=== PATIENT | female | born 1970 | race Caucasian/White ===

== ENCOUNTER 2016-08-14 20:11 | Emergency (ER) | payer BC ==
--- NOTE | 2016-08-14 20:21 | ED.PDOC ---
History of Present Illness - General Chief Complaint: Respiratory Problem Stated Complaint: cough, congestion, drainage Time Seen by Provider: 08/14/16 20:20 Source: patient Exam Limitations: no limitations - History of Present Illness Comments: Joanie Gupta 46 y/o female stated she had productive cough and nasal congestion the last 4 days with thick yellow phlegm and also had episode of nausea vomit at the start but stated no longer throwing up.She is dm2 compliant with medications. Timing/Duration: other - 4 days ago Cough Quality/Degree: productive cough Possible Cause: unknown cause Improving Factors: nothing Worsening Factors: nothing Associated Symptoms: wheezing - in am Allergies/Adverse Reactions: Allergies Codeine Allergy (Verified 06/18/13 08:53) Insulin Allergy (Verified 08/14/16 20:28) Iodine Allergy (Verified 06/18/13 08:53) Morphine Allergy (Verified 06/18/13 08:54) Penicillins Allergy (Verified 06/18/13 08:52) Sulfa Drugs Allergy (Verified 06/18/13 08:53) Home Medications: Ambulatory Orders Lisinopril/Hctz 20-25 mg [Zestoretic 20-25 mg] 1 ea PO DAILY #30 tab 06/19/13 Dextromethorphan-Guaifenesin [Mucinex Dm Maximum Streng 60-1200 mg] 1 tab PO BID #30 tab 08/14/16 Doxycycline Hyclate 100 mg PO BID #14 tab 08/14/16 Dulaglutide [Trulicity] 1.5 mg SC WKLY 08/14/16 Empagliflozin [Jardiance] 10 mg PO DAILY 08/14/16 Gabapentin 600 mg PO DAILY 08/14/16 Gabapentin 900 mg PO BEDTIME 08/14/16 Multiple Vitamins W/ Minerals [Thrive For Life Womens] 1 tab PO DAILY 08/14/16 Tramadol HCl [Ultram] 150 mg PO BEDTIME 08/14/16 diphenhydrAMINE HCL [Benadryl] 25 mg PO BEDTIME #60 cap 08/14/16 Review of Systems - Review of Systems Constitutional: States: no symptoms reported EENTM: States: nose congestion Respiratory: States: see HPI Cardiology: States: no symptoms reported Gastrointestinal/Abdominal: States: no symptoms reported Genitourinary: States: no symptoms reported Musculoskeletal: States: no symptoms reported Skin: States: no symptoms reported Neurological: States: no symptoms reported Endocrine: States: no symptoms reported Hematologic/Lymphatic: States: no symptoms reported Past Medical History (General) - Patient Medical History Hx Seizures: No Hx Stroke: No Hx Asthma: No Hx of COPD: No Hx Cardiac Disorders: Yes Hx Congestive Heart Failure: No Hx Pacemaker: No Hx Hypertension: Yes Hx Diabetes: Yes Hx Gastroesophageal Reflux: Yes Hx Cancer: No Hx Hepatitis C: No Hx MRSA: No Surgical History: cholecystectomy, other - left foot,shoulder - Vaccination History Hx Tetanus, Diphtheria Vaccination: No Hx Influenza Vaccination: No Hx Pneumococcal Vaccination: No - Social History Hx Tobacco Use: No Hx Alcohol Use: No Hx Substance Use: No Hx Substance Use Treatment: No Hx Depression: Yes Hx Physical Abuse: No Hx Emotional Abuse: No Hx Suspected Abuse: No - Female History Patient : No - test negative Family Medical History - Family History Mother Family History: No Known Physical Exam - Physical Exam General Appearance: Alert, No apparent distress Eye Exam: bilateral normal ENT Exam: normal ENT inspection, hearing grossly normal, TMs normal, pharynx normal, nasal congestion Neck: non-tender, full range of motion, supple, normal inspection Respiratory: chest non-tender, lungs clear, normal breath sounds, no respiratory distress Cardiovascular/Chest: normal peripheral pulses, regular rate, rhythm, no edema, no gallop, no murmur Gastrointestinal/Abdominal: normal bowel sounds, non tender, soft, no organomegaly Extremity: normal range of motion, non-tender, normal inspection Neurologic: no motor/sensory deficits, alert, normal mood/affect, oriented x 3 Skin Exam: normal color, warm/dry Lymphatic: no adenopathy Progress - EKG/XRAY/CT XRAY: chest - no acute abnormality/radiologist Departure - Departure Clinical Impression: Upper respiratory infection Qualifiers: URI type: unspecified URI Qualified Code(s): J06.9 - Acute upper respiratory infection, unspecified Time of Disposition: 20:54 Disposition: Discharge to Home or Self Care Condition: Good Departure Forms: ED Discharge - Pt. Copy, Patient Portal Self Enrollment Referrals: Estuardo Baptiste MD [Primary Care Provider] - 1-2 Weeks Prescriptions: Dextromethorphan-Guaifenesin [Mucinex Dm Maximum Streng 60-1200 mg] 1 tab PO BID #30 tab diphenhydrAMINE HCL [Benadryl] 25 mg PO BEDTIME #60 cap Doxycycline Hyclate 100 mg PO BID #14 tab Home Medications: Ambulatory Orders Lisinopril/Hctz 20-25 mg [Zestoretic 20-25 mg] 1 ea PO DAILY #30 tab 06/19/13 Dextromethorphan-Guaifenesin [Mucinex Dm Maximum Streng 60-1200 mg] 1 tab PO BID #30 tab 08/14/16 Doxycycline Hyclate 100 mg PO BID #14 tab 08/14/16 Dulaglutide [Trulicity] 1.5 mg SC WKLY 08/14/16 Empagliflozin [Jardiance] 10 mg PO DAILY 08/14/16 Gabapentin 600 mg PO DAILY 08/14/16 Gabapentin 900 mg PO BEDTIME 08/14/16 Multiple Vitamins W/ Minerals [Thrive For Life Womens] 1 tab PO DAILY 08/14/16 Tramadol HCl [Ultram] 150 mg PO BEDTIME 08/14/16 diphenhydrAMINE HCL [Benadryl] 25 mg PO BEDTIME #60 cap 08/14/16 Additional Instructions: Follow up with primary md 08/18/2016 as needed patient to call for appointment
--- NOTE | 2016-08-14 20:39 | RAD ---
PROCEDURE: Chest,2 Views CLINICAL HISTORY: cough INDICATION: Same as above COMPARISON: 06/18/2013 TECHNIQUE: PA and and lateral chest radiographs were obtained. FINDINGS: Benign elevation of the right hemidiaphragm is noted There are no discrete airspace infiltrates, pneumothoraces or pleural effusions. The pulmonary vascularity is normal The cardiomediastinal silhouette is unremarkable for patient's age and sex. IMPRESSION: There is no acute pleural-parenchymal process seen in the imaged lung mora. Place of interpretation: T[facility]iology. Electronically signed by: Azeem Jeronimo MD 08/14/2016 8:39 PM CDT Workstation: [id number]
[2016-08-14] MEDS ORDERED: DOXYCYCLINE TAB (ER DISPENSE) 100 MG CAP PO ONE (20:55)
[2016-08-14] MEDS ORDERED: BENZONATATE PERLES 100 MG CAP PO ONE (20:58)
[2016-08-14] MEDS ORDERED: BENZONATATE PERLES 100 MG CAP ONE (21:59)
[2016-08-14 22:39] VITALS: BP 154/84; TEMP 98.4; O2SAT 96
== END 2016-08-14 21:55 | disposition home or self-care (01) ==
LOC: ER 20:11
DX: J06.9 Acute upper respiratory infection, unspecified (principal); I10 Essential (primary) hypertension; E11.9 Type 2 diabetes mellitus without complications; K21.9 Gastro-esophageal reflux disease without esophagitis; Z79.899 Other long term (current) drug therapy; Z88.6 Allergy status to analgesic agent; Z88.0 Allergy status to penicillin; Z88.2 Allergy status to sulfonamides; Z88.8 Allergy status to other drugs, medicaments and biological substances

== ENCOUNTER 2017-01-10 21:58 | Emergency (ER) | payer BC ==
[2017-01-10] MEDS ORDERED: ASPIRIN (CHEWABLE) 81 MG TAB PO ONE (22:04)
[2017-01-10] MEDS ORDERED: SODIUM CHLORIDE 0.9% 1000ML 1,000 ML IVS ONE ×2 (22:04→22:57)
--- NOTE | 2017-01-10 22:33 | ED.PDOC ---
History of Present Illness - General Chief Complaint: Chest Pain/SD Stated Complaint: chest pain Time Seen by Provider: 01/10/17 22:02 Source: patient, RN notes reviewed, Vital Signs reviewed Additional Information: Pt reports onset of intermittent left upper chest sharp, burn, with squeeze type pain at around 7:30 pm on JAN 06. Pt reports waking up from a 2 hour nap around 7 pm and then pain began when standing in kitchen around 7:30 pm, not exerting herself. She says nothing makes the pain better or worse. She does report a similar episode about 3 to 4 years ago and a work-up with an [facility] in June 2015 which was normal. - History of Present Illness Timing/Duration: 1-3 hours - onset around 7:30 pm on JAN 06. Severity/Quality: moderate - and intermittent - , burning, sharp, tightness Location: other - left upper chest Chest Pain Radiation: jaw, arms - left arm and shoulder per report Activities at Onset: none Prior Chest Pain/Cardiac Workup: echocardiography, thallium scan Improving Factors: nothing Worsening Factors: nothing Aspirin Treatment Today: no aspirin today Associated Symptoms: denies symptoms - to include diaphoresis Allergies/Adverse Reactions: Allergies Codeine Allergy (Verified 01/10/17 22:47) Insulin Allergy (Verified 01/10/17 22:47) Iodine Allergy (Verified 01/10/17 22:47) Morphine Allergy (Verified 01/10/17 22:47) Penicillins Allergy (Verified 01/10/17 22:47) Sulfa Drugs Allergy (Verified 01/10/17 22:47) Home Medications: Ambulatory Orders Lisinopril/Hctz 20-25 mg [Zestoretic 20-25 mg] 1 ea PO DAILY #30 tab 06/19/13 Dextromethorphan-Guaifenesin [Mucinex Dm Maximum Streng 60-1200 mg] 1 tab PO BID #30 tab 08/14/16 Doxycycline Hyclate 100 mg PO BID #14 tab 08/14/16 Dulaglutide [Trulicity] 1.5 mg SC WKLY 08/14/16 Empagliflozin [Jardiance] 10 mg PO DAILY 08/14/16 Gabapentin 600 mg PO DAILY 08/14/16 Gabapentin 900 mg PO BEDTIME 08/14/16 Multiple Vitamins W/ Minerals [Thrive For Life Womens] 1 tab PO DAILY 08/14/16 Tramadol HCl [Ultram] 150 mg PO BEDTIME 08/14/16 diphenhydrAMINE HCL [Benadryl] 25 mg PO BEDTIME #60 cap 08/14/16 Review of Systems - Review of Systems Constitutional: States: no symptoms reported, see HPI EENTM: States: no symptoms reported Respiratory: States: no symptoms reported Cardiology: States: see HPI, chest pain Gastrointestinal/Abdominal: States: no symptoms reported Genitourinary: States: no symptoms reported Musculoskeletal: States: no symptoms reported Skin: States: no symptoms reported Neurological: States: anxiety Endocrine: States: no symptoms reported Hematologic/Lymphatic: States: no symptoms reported Past Medical History (General) - Patient Medical History Hx Seizures: No Hx Stroke: No Hx Asthma: No Hx of COPD: No Hx Cardiac Disorders: Yes - cardiac work-up for similar presentation 3 to 4 years ago and in June Hx Congestive Heart Failure: No Hx Pacemaker: No Hx Hypertension: Yes Hx Diabetes: Yes - Uncontrolled (last A1C >11%) Hx Gastroesophageal Reflux: Yes Hx Cancer: No Hx Hepatitis C: No Hx MRSA: No - Vaccination History Hx Tetanus, Diphtheria Vaccination: No Hx Influenza Vaccination: No Hx Pneumococcal Vaccination: No - Social History Hx Tobacco Use: No Hx Chewing Tobacco Use: No Hx Alcohol Use: No Hx Substance Use: No Hx Substance Use Treatment: No Hx Depression: Yes Hx Physical Abuse: No Hx Emotional Abuse: No Hx Suspected Abuse: No - Female History Patient : No - test negative Family Medical History - Family History Mother Family History: No Known Physical Exam - Physical Exam General Appearance: Anxious - at times, No apparent distress, Obese Eyes, Ears, Nose, Throat Exam: normal ENT inspection, pharynx normal Neck: non-tender, full range of motion, supple Respiratory: normal breath sounds, no respiratory distress, no accessory muscle use Cardiovascular/Chest: normal peripheral pulses, regular rate, rhythm, no murmur Gastrointestinal/Abdominal: non tender, soft Extremity: normal range of motion, non-tender, normal inspection 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 Comes intermittently. Nonexertional. Since she is a female diabetic she may be presenting with atypical ACS. However, her serial troponin and EKG assessments were normal without evidence of SD at this time. Also, no hypoxia, no tachycardia, and patient with negative d-dimer making PE unlikely as well. 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 Patient stable for discharge home. Unclear etiololgy at this time for symptoms. May be - GERD vs Anxiety vs possible costochondritis. Patient to return to ED if symptoms worsen. Also, Pt is to f/u with PCM for reassessment if symptoms persist. - Results/Orders Results/Orders: 01/10/17 22:15 EKG STAT 01/10/17 23:55 EKG .ONCE Laboratory Results - last 24 hr 01/10/17 01/10/17 01/10/17 22:25 22:25 22:25 WBC 10.4 RBC 4.92 Hgb 15.1 Hct 43.6 MCV 88.6 MCH 30.6 MCHC 34.5 RDW 12.3 Plt Count 356 MPV 8.7 Absolute Neuts (auto) 5.30 Absolute Lymphs (auto) 3.40 Absolute Monos (auto) 0.60 Absolute Eos (auto) 1.10 H Absolute Basos (auto) 0.00 Neutrophils % 50.8 Lymphocytes % 32.5 Monocytes % 6.0 Eosinophils % 10.3 H Basophils % 0.4 D-Dimer, Quantitative < 230 Sodium 133 L Potassium 4.0 Chloride 95 L Carbon Dioxide 24 Anion Gap 18.0 BUN 23 H Creatinine 0.66 BUN/Creatinine Ratio 34.8 H POC Glucose Random Glucose 480 H* Serum Osmolality 291.3 Calcium 10.2 Total Bilirubin 0.5 AST 21 ALT 22 Alkaline Phosphatase 79 Creatine Kinase 304 H* CK-MB (CK-2) 27.4 H* CK-MB (CK-2) % 9.01 H Troponin I < 0.02 Serum Total Protein 7.8 Albumin 4.4 Globulin 3.4 Albumin/Globulin Ratio 1.3 01/10/17 01/11/17 23:55 00:08 WBC RBC Hgb Hct MCV MCH MCHC RDW Plt Count MPV Absolute Neuts (auto) Absolute Lymphs (auto) Absolute Monos (auto) Absolute Eos (auto) Absolute Basos (auto) Neutrophils % Lymphocytes % Monocytes % Eosinophils % Basophils % D-Dimer, Quantitative Sodium Potassium Chloride Carbon Dioxide Anion Gap BUN Creatinine BUN/Creatinine Ratio POC Glucose 353 H Random Glucose Serum Osmolality Calcium Total Bilirubin AST ALT Alkaline Phosphatase Creatine Kinase 264 H* CK-MB (CK-2) 23.2 H* CK-MB (CK-2) % 8.79 H Troponin I < 0.02 Serum Total Protein Albumin Globulin Albumin/Globulin Ratio 01/10/17 01/10/17 01/10/17 22:48 23:00 23:33 Temperature 98.1 F 98.1 F Pulse Rate 88 85 90 Pulse Rate [ 87 85 87 left] Respiratory 18 18 18 Rate Blood Pressure 153/97 147/86 150/90 [left] O2 Sat by Pulse 96 95 95 Oximetry 01/11/17 00:14 Temperature Pulse Rate 90 Pulse Rate [ 91 H left] Respiratory 18 Rate Blood Pressure 150/91 [left] O2 Sat by Pulse 95 Oximetry - EKG/XRAY/CT EKG: Sinus - 89 bpm @ 2201 (JAN 06), no ST T wave changes XRAY: chest - 2 view. Persistent elevated right hemidiaphragm. Some atelectasis as well. Otherwise, normal. - Additional EKG/XRAY/Consults EKG #2: Sinus - 85 bpm (@ 0002 on JAN 06), no ST T wave changes Departure - Departure Clinical Impression: Atypical chest pain, Dehydration Uncontrolled diabetes mellitus Qualifiers: Diabetes mellitus type: type 2 Diabetes mellitus complication status: with neurologic complications Diabetes mellitus complication detail: with polyneuropathy Diabetes mellitus long term acute care registered nurse insulin use: without chcf use Qualified Code(s): E11.42 - Type 2 diabetes mellitus with diabetic polyneuropathy Time of Disposition: 01:15 Disposition: Discharge to Home or Self Care Condition: Fair Departure Forms: ED Discharge - Pt. Copy, Patient Portal Self Enrollment Instructions: DI for Atypical Chest Pain, DI for Diabetes Type 2 Referrals: Estuardo Baptiste MD [Primary Care Provider] - 1-5 Days Home Medications: Ambulatory Orders Lisinopril/Hctz 20-25 mg [Zestoretic 20-25 mg] 1 ea PO DAILY #30 tab 06/19/13 Dextromethorphan-Guaifenesin [Mucinex Dm Maximum Streng 60-1200 mg] 1 tab PO BID #30 tab 08/14/16 Doxycycline Hyclate 100 mg PO BID #14 tab 08/14/16 Dulaglutide [Trulicity] 1.5 mg SC WKLY 08/14/16 Empagliflozin [Jardiance] 10 mg PO DAILY 08/14/16 Gabapentin 600 mg PO DAILY 08/14/16 Gabapentin 900 mg PO BEDTIME 08/14/16 Multiple Vitamins W/ Minerals [Thrive For Life Womens] 1 tab PO DAILY 08/14/16 Tramadol HCl [Ultram] 150 mg PO BEDTIME 08/14/16 diphenhydrAMINE HCL [Benadryl] 25 mg PO BEDTIME #60 cap 08/14/16 Additional Instructions: Based on assessment I do not think that you have a blood clot in your lungs and I do not think that you are having a heart attack that I can diagnose based on EKG and/or labwork at this time. If your symptoms worsen return immediately to the Emergency Department for re- evaluation. Stay well hydrated with 1.5 to 2 liters of water daily. Follow-up with Primary Care provider if symptoms persist over the next 2 to 3 days. Trial of Maalox before meals and at night to see if this helps with symptoms.
[2017-01-10] MEDS ORDERED: INSULIN, REG.(HUMAN) 100 U/ML VIAL SUBCU ONE (22:57)
[2017-01-10 23:02] VITALS: TEMP 98.1
[2017-01-10 23:09] VITALS: O2SAT 95
--- NOTE | 2017-01-10 23:25 | RAD ---
EXAM DESCRIPTION: Chest,2 Views CLINICAL HISTORY: 46 years Female chest pain, negative d-dimer COMPARISON: None. FINDINGS: The cardiomediastinal silhouette appears unremarkable. No consolidation. No evidence of pleural fluid. Small amount of atelectasis in the right lung base with mild elevation the right hemidiaphragm. No pneumothorax. IMPRESSION: Basilar atelectasis with elevation the right hemidiaphragm Electronically signed by: Dara Randolph 01/10/2017 11:24 PM CDT
[2017-01-11] MEDS ORDERED: LIDOCAINE VIS-MYLANTA 30 ML UD PO ONE (00:49)
[2017-01-11 01:21] VITALS: BP 142/87
== END 2017-01-11 01:21 | disposition home or self-care (01) ==
LOC: ER 21:58
DX: R07.89 Other chest pain (principal); E86.0 Dehydration; E11.42 Type 2 diabetes mellitus with diabetic polyneuropathy; I10 Essential (primary) hypertension; K21.9 Gastro-esophageal reflux disease without esophagitis; Z79.899 Other long term (current) drug therapy; Z88.8 Allergy status to other drugs, medicaments and biological substances; Z88.0 Allergy status to penicillin; Z88.6 Allergy status to analgesic agent
CPT/HCPCS: 36415; 36416; 71020; 80053; 82550; 82553; 82948; 84484; 85025; 85379; 93005; J7030

== ENCOUNTER 2017-04-04 03:56 | Observation (INO) | payer BC ==
--- NOTE | 2017-04-04 04:38 | ED.PDOC ---
History of Present Illness - General Chief Complaint: Lower Extremity Injury Stated Complaint: REDNESS SWELLING IN L FOOT Time Seen by Provider: 04/04/17 04:32 Source: patient Exam Limitations: no limitations - History of Present Illness Initial Comments: THIS PATIENT COMES TO THE ED WITH A CELLULITES OF THE LEFT FOOT. 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 YESTERDAY SHE NOTED SOME SWELLING, SHE CALLED HER DRGaviota IN [place] AND WAS STARTED ON CEFDINIR AND BACTRIM. TONIGHT SHE LOOKS AT HER FOOT AND IS SWOLLEN AND RED. SHE VOICES THAT HER BBG HAS BEEN RIGH IN THE LAST SEVERAL DAYS Occurred: yesterday Pain - Lower Extremity: severe: Left Foot Improving Factors: nothing Worsening Factors: nothing Allergies/Adverse Reactions: Allergies Codeine Allergy (Verified 04/04/17 04:16) Insulin Allergy (Verified 01/10/17 22:47) Iodine Allergy (Verified 04/04/17 04:16) Morphine Allergy (Verified 04/04/17 04:16) Penicillins Allergy (Verified 04/04/17 04:16) Sulfa Drugs Allergy (Verified 04/04/17 04:16) Home Medications: Ambulatory Orders Lisinopril/Hctz 20-25 mg [Zestoretic 20-25 mg] 1 ea PO DAILY #30 tab 06/19/13 Dextromethorphan-Guaifenesin [Mucinex Dm Maximum Streng 60-1200 mg] 1 tab PO BID #30 tab 08/14/16 Doxycycline Hyclate 100 mg PO BID #14 tab 08/14/16 Dulaglutide [Trulicity] 1.5 mg SC WKLY 08/14/16 Empagliflozin [Jardiance] 10 mg PO DAILY 08/14/16 Gabapentin 600 mg PO DAILY 08/14/16 Gabapentin 900 mg PO BEDTIME 08/14/16 Multiple Vitamins W/ Minerals [Thrive For Life Womens] 1 tab PO DAILY 08/14/16 Tramadol HCl [Ultram] 150 mg PO BEDTIME 08/14/16 diphenhydrAMINE HCL [Benadryl] 25 mg PO BEDTIME #60 cap 08/14/16 Review of Systems - Review of Systems Constitutional: States: chills EENTM: States: no symptoms reported Respiratory: States: no symptoms reported Cardiology: States: no symptoms reported Gastrointestinal/Abdominal: States: no symptoms reported Genitourinary: States: no symptoms reported Musculoskeletal: States: other Skin: States: change in color, rash Neurological: States: no symptoms reported Endocrine: States: no symptoms reported Hematologic/Lymphatic: States: no symptoms reported Past Medical History (General) - Patient Medical History Hx Seizures: No Hx Stroke: No Hx Asthma: No Hx of COPD: No Hx Cardiac Disorders: Yes - cardiac work-up for similar presentation 3 to 4 years ago and in June Hx Congestive Heart Failure: No Hx Pacemaker: No Hx Hypertension: Yes Hx Diabetes: Yes Hx Gastroesophageal Reflux: Yes Hx Cancer: No Hx Hepatitis C: No Hx MRSA: No Surgical History: cholecystectomy, tonsillectomy, other - Vaccination History Hx Tetanus, Diphtheria Vaccination: No Hx Influenza Vaccination: No Hx Pneumococcal Vaccination: No - Social History Hx Tobacco Use: No Hx Chewing Tobacco Use: No Hx Alcohol Use: No Hx Substance Use: No Hx Substance Use Treatment: No Hx Depression: Yes Feels Threatened In Home Enviroment: No Feels Threatened In a Relationship: No Hx Physical Abuse: No Hx Emotional Abuse: No Hx Suspected Abuse: No - Female History Patient is a Female of Child Bearing Age (10 -59 yrs old): Yes Patient : No - test negative Family Medical History - Family History Mother Family History: No Known Physical Exam - Physical Exam General Appearance: Anxious Eyes, Ears, Nose, Throat: PERRL/EOMI, TMs normal, pharynx normal Neck: non-tender, full range of motion, supple Cardiovascular/Respiratory: regular rate, rhythm, normal peripheral pulses, no JVD Gastrointestinal/Abdominal: non-tender, no organomegaly, no hernia Back: normal inspection, no CVA tenderness, no vertebral tenderness Thigh/Hip: normal inspection, non-tender, no evidence of injury Leg: normal inspection, non-tender Foot: soft tissue tenderness, swelling, other - ERYTHEMA TO THE FOOT WITH CELLULLITIS. Neuro/Tendon: other - THE PATIENT HAS DIABETIC POLYNEUROPATHY Mental Status: alert, oriented x 3 Skin: rash Progress - Results/Orders Results/Orders: LAB IS RESULTED: WBC'S OF 15,000. ELEVATED CRP OF 44, X RAY W/O ANY EVIDENCE OF INFECTION. THE PATIENT DESIRES TO GO TO [place] WHERE SHE HAS HAD FOOT SURGERY. I HAVE SPOKEN TO DR. REUBEN MCCURDY AND HE ACCEPTS THE PATIENT. THE [facility] IS ON DIVERSION, THEY WILL CALL TOMORROW AND ACCEPT THE PATIENT ONCE OFF DIVERSION. FIDE I HAVE SPOKEN TO OTTO LIZAMA AND THE PATIENT WILL BE PLACED ON OBSERVATION AWAITING A ROOM AT THE [facility]. Departure - Departure Clinical Impression: Abscess or cellulitis of foot, Diabetic foot infection, Diabetes 1.5, managed as type 1, Uncontrolled diabetes mellitus Time of Disposition: 06:45 Disposition: Transfer to Hospital Condition: Fair Referrals: Estuardo Baptiste MD [Primary Care Provider] - 1-2 Weeks Home Medications: Ambulatory Orders Lisinopril/Hctz 20-25 mg [Zestoretic 20-25 mg] 1 ea PO DAILY #30 tab 06/19/13 Dextromethorphan-Guaifenesin [Mucinex Dm Maximum Streng 60-1200 mg] 1 tab PO BID #30 tab 08/14/16 Doxycycline Hyclate 100 mg PO BID #14 tab 08/14/16 Dulaglutide [Trulicity] 1.5 mg SC WKLY 08/14/16 Empagliflozin [Jardiance] 10 mg PO DAILY 08/14/16 Gabapentin 600 mg PO DAILY 08/14/16 Gabapentin 900 mg PO BEDTIME 08/14/16 Multiple Vitamins W/ Minerals [Thrive For Life Womens] 1 tab PO DAILY 08/14/16 Tramadol HCl [Ultram] 150 mg PO BEDTIME 08/14/16 diphenhydrAMINE HCL [Benadryl] 25 mg PO BEDTIME #60 cap 08/14/16 Transfer to Outside Facility - Transfer Information Accepting Facility: [facility]
--- NOTE | 2017-04-04 05:25 | RAD ---
EXAM DESCRIPTION: Foot,Left 3 Views CLINICAL HISTORY: infected left foot COMPARISON: None. FINDINGS: 3 views of the left foot. Plate and screw fixation involving the first, second, third, and fourth metatarsals. Diffuse dorsal soft tissue swelling. Plantar calcaneal spur. Osteopenia. No definite lytic osseous lesions identified. No acute fracture identified. IMPRESSION: 1. No acute fracture. 2. Diffuse dorsal soft tissue swelling of the foot without definite lytic osseous lesion. These findings could be seen with cellulitis. Electronically signed by: Harris Matthew 04/04/2017 5:24 AM [facility]
[2017-04-04] MEDS ORDERED: VANCOMYCIN HCL INJ 1,000 MG VIAL IVPB ONE ×3 (06:15→15:29)
[2017-04-04] MEDS ORDERED: VANCOMYCIN HCL INJ 1,000 MG in SODIUM CHLORIDE 0.9% 250ML 250 ML IVPB ONE (06:16)
[2017-04-04] MEDS ORDERED: SODIUM CHLORIDE 0.9% 250ML 250 ML ONE ×2 (06:18→15:29)
[2017-04-04] MEDS ORDERED: INSULIN, REG.(HUMAN) 100 U/ML VIAL SUBCU ONE (06:24)
--- NOTE | 2017-04-04 08:16 | HP ---
SUPERVISING PHYSICIAN: Brigido Crane M.D. CHIEF COMPLAINT: Swelling, redness and pain in the left lower extremity. HISTORY OF PRESENT ILLNESS: This is a 46 year-old female patient who has a significant history of Charcot foot and has had multiple surgeries on it in the past with complications requiring her to go to a specialist in [place]. On Thursday of this week, her left foot was hurting. She had some neuropathy symptoms and some swelling, but took some of her extra pain medications and by Thursday there was quite a bit more swelling and it was worse. It also was somewhat more painful. By it was extremely erythematous. Along with the swelling the pain increased. It was also warm to touch. She called her primary care physician, Estuardo Baptiste in [place] and he did not want her to come to the clinic due to so many people with the flu, so he ordered her Bactrim and Cefdinir and started her on it and he told her that if her symptoms worsened to go to the Emergency Room. By Thursday, in spite of the antibiotics it had worsened to the point that she felt like she should come to the hospital, so late Thursday evening she came to the hospital and her lower extremity was very erythematous. It was very swollen, tender to palpation. There was also a large pus-filled boil at the proximal portion of her old scar on her left foot. She was given some fluids in the Emergency Room. She was given a dose of vancomycin. Blood cultures were drawn. She also had a low- grade temperature of 99.7 as well as a heart rate that was 108. Labs showed an elevated white count of 15.7 as well as hemoglobin 12.6 and hematocrit 37.6. ESR was 11 but her C reactive protein was 44.4. Glucoses have also been out of control. She has a significant history of poorly controlled diabetes and her glucoses were running over 350 even up into the 400s. Sodium was low at 131, potassium 4.4, chloride 95, carbon dioxide 23, BUN 19, creatinine 0.73. Bilirubin was 1.3. A foot x-ray was obtained and per radiology interpretation showed no acute fracture and diffuse dorsal soft tissue swelling of the foot without definite lytic osseous lesions. These findings could be seen with cellulitis. Dr. Hai Alvarez, the E. R. physician, called [facility] and spoke with the on-call surgeon with a group that had performed her surgery previously. They discussed her case and he accepted the patient to their hospital, although their hospital was on divert and he recommended that she bet put in the hospital and started on vancomycin therapy. As soon as a bed was available they would take her as a transfer. The patient was admitted to the hospital this morning. PAST MEDICAL HISTORY: 1. Charcot foot. 2. Hypertension. 3. Diabetes mellitus type 2. 4. Diabetic peripheral neuropathy. 5. Retinopathy. 6. Anxiety disorder. PAST SURGICAL HISTORY: 1. Right shoulder rotator cuff repair. 2. Lasik surgery on both eyes. 3. Cataract removal on both eyes. 4. Cholecystectomy. 5. Left foot surgery times 2 due to Charcot foot. 6. Right knee arthroscopy times 2. CURRENT MEDICATIONS: Per the EMR and awaiting verification. ALLERGIES: PENICILLIN, CODEINE, MORPHINE, DIABETIC DRUGS THAT CONTAIN SULFA, AND LYRICA. FAMILY HISTORY: Positive for heart disease, diabetes and Alzheimer's. SOCIAL HISTORY: She lives in [place] with her son. She is unemployed. She denies any ETOH, tobacco or illicit drug use. REVIEW OF SYSTEMS: Positive for fever and fatigue. Denies weight changes. HEENT: Positive for some sinus symptoms and seasonal allergies. Negative for visual disturbances or sore throat. RESPIRATORY: Positive for cough and mild congestion. Negative for shortness of breath or wheezing. CARDIAC: Negative for chest pain, tachycardia or palpitations. GASTROINTESTINAL: Negative for abdominal pain, nausea, vomiting, diarrhea or constipation. GENITOURINARY: Negative hematuria, dysuria or polyuria. EXTREMITIES: As per History of Present Illness. NEUROLOGIC: Positive for weakness and dizziness. Negative for seizures. PHYSICAL EXAMINATION: VITAL SIGNS: Temperature 99.4, pulse rate 100, blood pressure 106/70, respiratory rate 20, O2 sat is 96% on room air. GENERAL: This is a 46 year-old obese female who is sitting up in her hospital bed. She is in no acute distress. HEENT: Normocephalic and atraumatic. Pupils are equal and reactive. Oropharynx is clear. NECK: Supple without mass. RESPIRATORY: Essentially clear to auscultation bilaterally. CARDIOVASCULAR: Regular rate and rhythm. GASTROINTESTINAL: Abdomen is soft, nondistended, non-tender. Bowel sounds are positive. EXTREMITIES: Her left lower extremity has erythema that extends from the lower leg down to the toes. It is also very edematous. It is warm to touch. She has a previous surgical scar on the medial portion of her left foot that extends from just proximal to the left great toe and extends up to just above the left ankle. The proximal end of the scar has a large pus-filled boil that is approximately 3 cm in diameter. Her pedal pulse on the left is +1. Her pedal pulse on the right is +2. NEUROLOGIC: She is awake, alert and oriented times three. LABORATORY: Labs and films are as per the History of Present Illness. ASSESSMENT: 1. Cellulitis of the left lower extremity, failed outpatient therapy with a significant history of diabetes mellitus as well as Charcot foot that has required surgical intervention times 2. She has an elevated white blood cell count of 15.7 and a CRP of 44.4. She is also tachycardic and has a low-grade fever. 2. Poorly controlled, poorly compliant diabetes mellitus. 3. Diabetic peripheral neuropathy. 4. Hypertension. PLAN: We will admit the patient to the hospital. I have spoken with [facility] and she has been okayed for admission at that facility, but at this point they are on divert and they are not sure if there will be a bed available by tomorrow or not. I have started her on vancomycin per Pharmacy protocol and have added Levaquin. I have also ordered a culture on the wound. Blood cultures are pending. I have placed her on sliding scale insulin as well as Lovenox for DVT prophylaxis and Protonix for ulcer prophylaxis. I will again check with [place] in the morning to see if they have a bed for her transfer. I will restart her home medications as soon as they are verified. She will get Tramadol for pain. She will need to elevate that foot as much as possible. I have also given her 1 liter of fluid in addition to what she had in the Emergency Room. We will continue to monitor closely and follow as needed. [facility][id number] [facility]
[2017-04-04] MEDS ORDERED: DEXTROSE 50% 25 GM/50 ML SYG IV PRN (11:46)
[2017-04-04] MEDS ORDERED: GLUCAGON INJ 1 MG VIAL SUBCU PRN (11:46)
[2017-04-04] MEDS ORDERED: SODIUM CHLORIDE 0.9% (FLUSH) 10 ML SYG IV PRN (11:56)
[2017-04-04] MEDS ORDERED: VANCOMYCIN PER PHARMACY INJ SCH (12:00)
[2017-04-04] MEDS ORDERED: ENOXAPARIN SODIUM 40 MG/0.4 ML SYG SUBCU SCH (12:00)
[2017-04-04] MEDS ORDERED: PANTOPRAZOLE SODIUM IV 40 MG VIAL IV SCH (12:00)
[2017-04-04] MEDS ORDERED: IV SET AND CAP CHANGE INJ INJ SCH (12:00)
[2017-04-04] MEDS ORDERED: levoFLOXacin 500MG IV 500 MG in PREMIX BAG 1 BAG IVPB ONE (12:30)
[2017-04-04] MEDS ORDERED: levoFLOXacin 500MG IV 100 ML IVPB ONE (12:33)
[2017-04-04] MEDS ORDERED: INSULIN LISPRO 100 UNITS/ML PEN SUBCU ONE (12:35)
[2017-04-04] MEDS: INSULIN LISPRO 100 UNITS/ML PEN SUBCU SCH ×3 (12:42→21:20)
[2017-04-04] MEDS ORDERED: VANCOMYCIN HCL INJ 500 MG VIAL ONE (15:28)
[2017-04-04] MEDS: VANCOMYCIN HCL INJ 1,000 MG, VANCOMYCIN HCL INJ 500 MG in SODIUM CHLORIDE 0.9% 250ML 25... IVPB SCH (15:50)
[2017-04-04] MEDS ORDERED: SODIUM CHLORIDE 0.9% 1000ML 1,000 ML IVS ONE (15:55)
[2017-04-04] MEDS: LANTUS SUBCU SCH (16:58)
[2017-04-04] MEDS: NON-FORMULARY MEDICATION 1 EA MIS (Empagliflozin [Jardiance] 25 MG) PO SCH (17:00)
[2017-04-04] MEDS: metFORMIN XR 500 MG TAB.ER.24 PO SCH (17:07)
[2017-04-04] MEDS: hydroCHLOROthiazide 25 MG TAB PO SCH (17:14)
[2017-04-04] MEDS: LISINOPRIL 10 MG TAB PO SCH (17:14)
[2017-04-04] MEDS: GABAPENTIN 300 MG CAP PO SCH ×2 (17:14→21:19)
[2017-04-04] MEDS: traMADol HCL 50 MG TAB PO PRN (17:15)
[2017-04-04] MEDS: OLOPATADINE 0.1% OPHTH SOL 1 DROP BOTH_EYES SCH ×2 (18:24→21:20)
[2017-04-05] MEDS ORDERED: VANCOMYCIN HCL INJ 500 MG VIAL ONE ×2 (02:37→13:14)
[2017-04-05] MEDS ORDERED: SODIUM CHLORIDE 0.9% 250ML 250 ML ONE ×2 (02:37→13:15)
[2017-04-05] MEDS ORDERED: VANCOMYCIN HCL INJ 1,000 MG VIAL IVPB ONE ×2 (02:38→13:15)
[2017-04-05] MEDS: VANCOMYCIN HCL INJ 1,000 MG, VANCOMYCIN HCL INJ 500 MG in SODIUM CHLORIDE 0.9% 250ML 25... IVPB SCH ×2 (02:54→13:28)
[2017-04-05] MEDS: traMADol HCL 50 MG TAB PO PRN (05:37)
[2017-04-05] MEDS ORDERED: PANTOPRAZOLE SODIUM TAB 40 MG PO SCH (06:30)
[2017-04-05] MEDS ORDERED: INSULIN DETEMIR 100 UNITS/ML PEN SUBCU SCH (07:30)
[2017-04-05] MEDS: INSULIN LISPRO 100 UNITS/ML PEN SUBCU SCH ×2 (07:47→12:15)
[2017-04-05] MEDS: LANTUS SUBCU SCH (07:48)
[2017-04-05] MEDS ORDERED: DULAGLUTIDE 1.5 MG SC SCH (09:00)
[2017-04-05] MEDS ORDERED: HCTZ PO SCH (09:00)
[2017-04-05] MEDS ORDERED: LISINOPRIL PO SCH (09:00)
[2017-04-05] MEDS ORDERED: ENOXAPARIN SODIUM 40 MG/0.4 ML SYG SUBCU SCH (09:00)
[2017-04-05] MEDS: NON-FORMULARY MEDICATION 1 EA MIS (Empagliflozin [Jardiance] 25 MG) PO SCH (09:24)
[2017-04-05] MEDS: LISINOPRIL 10 MG TAB PO SCH (09:24)
[2017-04-05] MEDS: hydroCHLOROthiazide 25 MG TAB PO SCH (09:24)
[2017-04-05] MEDS: GABAPENTIN 300 MG CAP PO SCH (09:25)
[2017-04-05] MEDS: metFORMIN XR 500 MG TAB.ER.24 PO SCH (09:25)
[2017-04-05] MEDS: OLOPATADINE 0.1% OPHTH SOL 1 DROP BOTH_EYES SCH (09:26)
[2017-04-05] MEDS ORDERED: SODIUM CHLORIDE 0.9% 1000ML 1,000 ML IVS PRN (09:48)
--- NOTE | 2017-04-05 15:00 | DS ---
SUPERVISING PHYSICIAN: Brigido Crane M.D. DISCHARGE DIAGNOSIS: 1. Cellulitis of the left lower extremity, failed outpatient therapy with a significant history of diabetes mellitus as well as Charcot foot that has required surgical intervention times 2. She has an elevated white blood cell count initially on admission of 15.7 and a CRP of 44.4. She was also tachycardic and had a low-grade fever. 2. Poorly controlled, poorly compliant diabetes mellitus. 3. Diabetic peripheral neuropathy. 4. Hypertension. HISTORY OF PRESENT ILLNESS: This is a 46 year-old female patient who has a significant history of Charcot foot and has had multiple surgeries on it in the past with complications requiring her to go to a specialist in [place]. On Thursday of this week, her left foot was hurting. She had some neuropathy symptoms and some swelling, but took some of her extra pain medications and by Thursday there was quite a bit more swelling and it was worse. It also was somewhat more painful. By it was extremely erythematous. Along with the swelling the pain increased. It was also warm to touch. She called her primary care physician, Estuardo Baptiste in [place] and he did not want her to come to the clinic due to so many people with the flu, so he ordered her Bactrim and Cefdinir and started her on it and he told her that if her symptoms worsened to go to the Emergency Room. By Thursday evening, in spite of the antibiotics it had worsened to the point that she felt like she should come to the hospital, so late Thursday evening she came to the hospital and her lower extremity was very erythematous. It was very swollen, tender to palpation. There was also a large pus-filled boil at the proximal portion of her old scar on her left foot. She was given some fluids in the Emergency Room. She was given a dose of vancomycin. Blood cultures were drawn. She also had a low- grade temperature of 99.7 as well as a heart rate that was 108. Labs showed an elevated white count of 15.7 as well as hemoglobin 12.6 and hematocrit 37.6. ESR was 11 but her C reactive protein was 44.4. Glucoses have also been out of control. She has a significant history of poorly controlled diabetes and her glucoses were running over 350 even up into the 400s. Sodium was low at 131, potassium 4.4, chloride 95, carbon dioxide 23, BUN 19, creatinine 0.73. Bilirubin was 1.3. A foot x-ray was obtained and per radiology interpretation showed no acute fracture and diffuse dorsal soft tissue swelling of the foot without definite lytic osseous lesions. These findings could be seen with cellulitis. Dr. Hai Alvarez, the E. R. physician, called [facility] and spoke with the on-call surgeon with a group that had performed her surgery previously. They discussed her case and he accepted the patient to their hospital, although their hospital was on divert and he recommended that she bet put in the hospital and started on vancomycin therapy. As soon as a bed was available they would take her as a transfer. The patient was admitted to the hospital this morning. HOSPITAL COURSE: The patient was treated with vancomycin and 1 dose of Levaquin 500 mg IV. Today, there is a bed available at [facility] in [place], [place] and she will be transferred for further care by her surgeon at that facility. She is being transferred from this facility to [place] via [facility]. She is to resume her home medications as well as vancomycin. I have only given her 1 dose of Levaquin. Her preliminary wound cultures show gram positive cocci but her preliminary blood cultures show no growth after 24 hours. Her WBCs have improved today to 13. Electrolytes show sodium 134, potassium 3.9, chloride 98 , carbon dioxide 24, BUN 22, creatinine 0.82. Glucose is 189. She will be transferred to [facility] in stable condition. PLAN: She is to followup with her primary care physician, Dr. Estuardo Baptiste in [place] after discharge. DISCHARGE MEDICATIONS: 1. Lisinopril HCTZ. 2. Trulicity. 3. Jardiance. 4. Gabapentin. 5. Ultram. 6. Lantus. 7. Metformin. 8. Furosemide. 9. Olopatadine eye drops. 10. Mucinex DM. 11. Vancomycin. Dr. Crane is the collaborating physician available for consultation. #[id number] [facility]
[2017-04-05 15:22] VITALS: BP 118/68; TEMP 98; O2SAT 95
== END 2017-04-05 15:15 | disposition short-term general hospital (02) ==
LOC: ER 03:56 → INTOOBSV 08:15 → OBSVTOIN 08:15 → MS 08:15
PROVIDERS: ADMIT Nurse Practitioner Acute Care; ATTEND Nurse Practitioner Acute Care
DX: L03.116 Cellulitis of left lower limb (principal); E87.1 Hypo-osmolality and hyponatremia; A52.16 Charcot's arthropathy (tabetic); L02.622 Furuncle of left foot; E11.65 Type 2 diabetes mellitus with hyperglycemia; K21.9 Gastro-esophageal reflux disease without esophagitis; I10 Essential (primary) hypertension; E11.43 Type 2 diabetes mellitus with diabetic autonomic (poly)neuropathy; E11.319 Type 2 diabetes mellitus with unspecified diabetic retinopathy without macular edema; E66.9 Obesity, unspecified; F41.9 Anxiety disorder, unspecified; Z68.33 Body mass index [BMI] 33.0-33.9, adult; Z79.84 Long term (current) use of oral hypoglycemic drugs; Z79.899 Other long term (current) drug therapy; Z88.0 Allergy status to penicillin; Z88.5 Allergy status to narcotic agent; Z88.2 Allergy status to sulfonamides; Z88.8 Allergy status to other drugs, medicaments and biological substances; Z91.041 Radiographic dye allergy status

== ENCOUNTER → 2017-09-30 | Outpatient (CLI) | payer BC ==
--- NOTE | 2017-09-30 13:47 | MRI ---
MRI left foot without contrast INDICATION: Diabetic cellulitis multiple surgeries for infection COMPARISON STUDY: None TECHNIQUE: Noncontrast MR imaging left foot FINDINGS: No evidence of aggressive bone destruction. No drainable abscess. Mild diffuse dorsal soft tissue swelling throughout the foot with diffuse mild edema in the ankle indicating mild cellulitis. There is edema and mild cystic change in the fourth metatarsal head into the neck. This is likely degenerative/reactive possibly with an element of stress reaction. Medial/tibial hallux sesamoid is bipartite. There are postsurgical changes with arthrodesis across the TMT joints. There is osseous bridging at the first TMT compartment. Probable partial osseous bridging of the second TMT joint. ORIF changes involving the third and fourth metatarsals as well. Mild osteoarthrosis of the fourth and fifth TMT joints. There appears to be osseous bridging/healing of the third and fourth metatarsals. There is overriding malunion of the third. There is an os peroneum. There is a large plantar enthesophyte. There is also an accessory navicular ossification distal posterior tibialis. IMPRESSION: Previous surgical changes with arthrodesis changes in the TMT joints especially the first and second with ORIF third and fourth metatarsals with osseous bridging and malunion of the third Edema and mild cystic change fourth metatarsal head likely stress reaction and degenerative Diffuse mild cellulitis without evidence of osteomyelitis or abscess Electronically signed by: Shady Guillen MD 09/30/2017 1:46 PM CDT
== END ==
LOC: MRI 09:00
PROVIDERS: ATTEND Family Medicine
DX: L03.119 Cellulitis of unspecified part of limb (principal)

== ENCOUNTER 2017-10-22 23:12 | Emergency (ER) | payer BC ==
[2017-10-22 23:29] VITALS: BP 159/99; TEMP 96.7
--- NOTE | 2017-10-22 23:31 | ED.PDOC ---
History of Present Illness - General Chief Complaint: Lower Extremity Injury Stated Complaint: stubbed little toe on Rt foot last night Time Seen by Provider: 10/22/17 23:27 Source: patient Exam Limitations: no limitations - History of Present Illness Initial Comments: patient comes in for injury to her right little toe and foot. Patient stubbed her toe yesterday. She heard a crack and thought she most likely broke it but decided to come in today when she realized her doctor would be out of the office tomorrow. Patient has no other acute complaints. She does have diabetes and Charcot's foot as well as HTN Occurred: yesterday Pain - Lower Extremity: moderate: Right Foot Method of Injury: direct blow Improving Factors: nothing Worsening Factors: nothing Allergies/Adverse Reactions: Allergies Penicillins Allergy (Severe, Verified 04/04/17 11:26) Anaphylaxis Codeine Allergy (Intermediate, Verified 04/04/17 11:28) Hives Iodine Allergy (Mild, Verified 04/04/17 11:25) Sulfa Drugs Allergy (Mild, Verified 04/04/17 11:28) Sulfa based diabetes medications, but reports she can take sulfa abx. Sulfa based diabetes medciations cause nausea and vomitting. Insulin Adverse Reaction (Mild, Verified 04/04/17 11:25) Patient reports she can not have over 50 units at a time that she will retain fluid and have significant weight gain. Morphine Adverse Reaction (Verified 04/04/17 11:26) Changes personality and makes patient violent. Home Medications: Ambulatory Orders Lisinopril/Hctz 20-25 mg [Zestoretic 20-25 mg] 1 ea PO DAILY #30 tab 06/19/13 Dulaglutide [Trulicity] 1.5 mg SC WKLY 08/14/16 Empagliflozin [Jardiance] 25 mg PO DAILY 08/14/16 Gabapentin 600 mg PO BID 08/14/16 Tramadol HCl [Ultram] 100 mg PO Q8H PRN 08/14/16 Dextromethorphan-Guaifenesin [Mucinex Dm Maximum Streng 60-1200 mg] 1 tab PO BID PRN 04/04/17 Furosemide 20 mg PO DAILY PRN 04/04/17 Insulin Glargine [Lantus Solostar] 25 units SUBCU DAILYBK 04/04/17 Metformin HCl [Metformin HCl ER] 1,000 mg PO BID 04/04/17 Novolog 0 bottle SUBCU PRN PRN 04/04/17 Olopatadine HCl 0.1 % BOTH_EYES BID PRN 04/04/17 Vancomycin Per Pharmacy 1 ea INJ ONCE each 04/05/17 Review of Systems - Review of Systems Constitutional: States: no symptoms reported EENTM: States: no symptoms reported Respiratory: States: no symptoms reported Cardiology: States: no symptoms reported Gastrointestinal/Abdominal: States: no symptoms reported Musculoskeletal: States: see HPI Past Medical History (General) - Patient Medical History Hx Seizures: No Hx Stroke: No Hx Asthma: No Hx of COPD: No Hx Cardiac Disorders: Yes - cardiac work-up for similar presentation 3 to 4 years ago and in June Hx Congestive Heart Failure: No Hx Pacemaker: No Hx Hypertension: Yes Hx Diabetes: Yes - insulin Hx Gastroesophageal Reflux: Yes Hx Cancer: No Hx Hepatitis C: No Hx MRSA: No Surgical History: cholecystectomy, tonsillectomy, other - Vaccination History Hx Tetanus, Diphtheria Vaccination: No Hx Influenza Vaccination: No Hx Pneumococcal Vaccination: No - Social History Hx Tobacco Use: No Hx Chewing Tobacco Use: No Hx Alcohol Use: No Hx Substance Use: No Hx Substance Use Treatment: No Hx Depression: Yes Hx Physical Abuse: No Hx Emotional Abuse: No Hx Suspected Abuse: No - Female History Patient : No - test negative Family Medical History - Family History Mother Family History: No Known Age (years): 72 Living Status: Still Living Hx Family Asthma: No Hx Family Congestive Heart Failure: No Hx Family Hypertension: Yes Hx Family Stroke: Yes - TIA Hx Cardiac Disease: No Hx Family Diabetes: No Hx Family Cancer: No Physical Exam - Physical Exam General Appearance: No apparent distress Cardiovascular/Respiratory: regular rate, rhythm, no M/R/G, normal peripheral pulses, normal breath sounds, no respiratory distress Gastrointestinal/Abdominal: non-tender Foot: ecchymosis, swelling - Thick callous under bilateral first metatarsal, right 5th metatarsal with ecchymosis and swelling, other Progress - Progress Progress: 10/22/17 23:49 Patient Name: LISSY ALVARADO Gender: Female Date of : 1970 Referring Physician: FRANKIE SANTOS Organization: [facility] Accession Number: [id number] Requested Date: October 22, 2017 23:27 Report Status: Final Requested Procedure: 1 Procedure Description: Foot,Right 3 Views Modality: CR Findings Reporting MD: Fransico Caballero Fellow MD: Not available Dictation Time: Corner Cutter Machine Operator: Not available Hand I Blocker Date: EXAM: Three view(s) of the right foot. INDICATION: Pain. COMPARISON: None. FINDINGS: There is cortical irregularity near the base of the fifth proximal phalanx concerning for a nondisplaced fracture. There is soft tissue swelling along the dorsum of the foot. IMPRESSION: Cortical irregularity near the base of the fifth proximal phalanx, concerning for a nondisplaced fracture Area ana taped with cotton between toes. 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 Departure - Departure Clinical Impression: Fracture of toe of right foot Qualifiers: Encounter type: initial encounter Toe: lesser toe Fracture type: closed Phalanx : proximal Fracture alignment: nondisplaced Qualified Code(s): S92.514A - Nondisplaced fracture of proximal phalanx of right lesser toe(s), initial encounter for closed fracture Disposition: Discharge to Home or Self Care Condition: Good Departure Forms: ED Discharge - Pt. Copy, Patient Portal Self Enrollment Instructions: DI for Leg Pain Activity: walking as tolerated Referrals: Estuardo Baptiste MD [Primary Care Provider] - 1-2 Weeks Home Medications: Ambulatory Orders Lisinopril/Hctz 20-25 mg [Zestoretic 20-25 mg] 1 ea PO DAILY #30 tab 06/19/13 Dulaglutide [Trulicity] 1.5 mg SC WKLY 08/14/16 Empagliflozin [Jardiance] 25 mg PO DAILY 08/14/16 Gabapentin 600 mg PO BID 08/14/16 Tramadol HCl [Ultram] 100 mg PO Q8H PRN 08/14/16 Dextromethorphan-Guaifenesin [Mucinex Dm Maximum Streng 60-1200 mg] 1 tab PO BID PRN 04/04/17 Furosemide 20 mg PO DAILY PRN 04/04/17 Insulin Glargine [Lantus Solostar] 25 units SUBCU DAILYBK 04/04/17 Metformin HCl [Metformin HCl ER] 1,000 mg PO BID 04/04/17 Novolog 0 bottle SUBCU PRN PRN 04/04/17 Olopatadine HCl 0.1 % BOTH_EYES BID PRN 04/04/17 Vancomycin Per Pharmacy 1 ea INJ ONCE each 04/05/17 Additional Instructions: no tight shoes, hard sole shoes with no pressure over area. Ana tape and follow up with podiatry in 1 week. OTC tylenol and IBU for pain.
--- NOTE | 2017-10-22 23:42 | RAD ---
EXAM: Three view(s) of the right foot. INDICATION: Pain. COMPARISON: None. FINDINGS: There is cortical irregularity near the base of the fifth proximal phalanx concerning for a nondisplaced fracture. There is soft tissue swelling along the dorsum of the foot. IMPRESSION: Cortical irregularity near the base of the fifth proximal phalanx, concerning for a nondisplaced fracture Electronically signed by: Fransico Caballero MD 10/22/2017 11:41 PM CDT Workstation: [id number]
[2017-10-22 23:57] VITALS: O2SAT 99
== END 2017-10-22 23:58 | disposition home or self-care (01) ==
LOC: ER 23:12
DX: S92.514A Nondisplaced fracture of proximal phalanx of right lesser toe(s), initial encounter for closed fracture (principal); F32.9 Major depressive disorder, single episode, unspecified; I10 Essential (primary) hypertension; E11.9 Type 2 diabetes mellitus without complications; Z79.4 Long term (current) use of insulin; Z79.899 Other long term (current) drug therapy; Z88.0 Allergy status to penicillin; Z88.5 Allergy status to narcotic agent; Z91.041 Radiographic dye allergy status; X58.XXXA Exposure to other specified factors, initial encounter; Y92.9 Unspecified place or not applicable

== ENCOUNTER 2017-12-16 12:29 | Inpatient (IN) | payer BC ==
[2017-12-16] MEDS ORDERED: SODIUM CHLORIDE 0.9% 1000ML 1,000 ML IVS ONE (14:08)
[2017-12-16] MEDS ORDERED: INSULIN LISPRO 100 UNITS/ML PEN SUBCU ONE (14:08)
[2017-12-16] MEDS ORDERED: CEFEPIME 2 GM in SODIUM CHL 0.9% 50ML MIN-BAG+ 50 ML IVPB ONE (14:09)
[2017-12-16] MEDS ORDERED: VANCOMYCIN HCL INJ 1,000 MG, VANCOMYCIN HCL INJ 500 MG in SODIUM CHLORIDE 0.9% 250ML 25... IVPB ONE (14:09)
[2017-12-16] MEDS ORDERED: CEFEPIME 2 GM VIAL ONE (14:42)
[2017-12-16] MEDS ORDERED: SODIUM CHL 0.9% 50ML MIN-BAG+ 50 ML IVPB ONE (14:42)
--- NOTE | 2017-12-16 14:46 | HP ---
SUPERVISING PHYSICIAN: Yariel Ni M.D. CHIEF COMPLAINT: Lower left leg swelling and pain. HISTORY OF PRESENT ILLNESS: Ms. Gupta is a 47 year-old female patient who has a longstanding history of diabetes and Charcot foot with multiple surgeries in the past with some complications requiring additional surgeries in [place] with a specialist. Today, she presented to the Emergency Room complaining of left lower extremity cellulitis that started at about the mid tibial level going down to the toes. She noted that yesterday there was just a little bit of redness but it significantly increased over the last 24 hours with some petechial areas and it becoming very tender tenderness 2+ edema. She notes that her blood sugars have not been well controlled. She did note that she had fallen within the last several days but does not think that she resulted any fractures and had minimal pain at the time of the fall. She denied any other trauma prior to developing the cellulitis. Laboratory studies showed that she had a white count of 10,700 with a left shift and her sed rate was 66 with a CRP of 44.8. Also of significance was her blood sugar at 540. Potassium was normal at 3.9. Corrected sodium was 137, BUN 24, creatinine 0.86. Blood cultures were completed and the patient was started on Cefepime and vancomycin given her past history of multiple surgeries and multiple pieces of hardware within the left foot, and with concerns for possibly developing sepsis. She was also given 20 units of insulin and is now going to be admitted for ongoing further evaluation and treatment of the left lower leg cellulitis. PAST MEDICAL HISTORY: 1. Charcot foot of the left with multiple complicated surgeries requiring hospitalization for cellulitis in March 2017 2. Hypertension. 3. Diabetes mellitus type 2 on insulin and oral therapy, poorly controlled. 4. Diabetic peripheral neuropathies. 5. Retinopathy. 6. Anxiety disorder. PAST SURGICAL HISTORY: 1. Left foot surgery times 2 for Charcot foot. 2. Right knee arthroscopy times 2. 3. Right shoulder rotator cuff repair. 4. Lasik surgery in both eyes. 5. Cataract removal in both eyes. 6. Cholecystectomy. CURRENT MEDICATIONS: 1. Cymbalta 20 mg at bedtime. 2. Ultram 100 mg t.i.d. as needed. 3. NovoLog sliding scale. 4. Metformin extended release 500 mg b.i.d. 5. Zestoretic 20/25 mg 1 daily. 6. Gabapentin 600 mg t.i.d. 7. Lasix 20 mg as needed. 8. Jardiance 25 mg daily. 9. Trulicity 1.5 mg weekly. 10. Lantus star 25 units subcue daily. ALLERGIES: PENICILLIN, CODEINE, IODINE, SULFA MEDICATIONS, PHENOL, LEVEMIR INSULIN. AND MORPHINE. FAMILY HISTORY: Heart disease, diabetes and Alzheimer's. SOCIAL HISTORY: The patient lives in [place]. She has a son and is unemployed currently. She denies any alcohol, illicit or tobacco usage. REVIEW OF SYSTEMS: Positive for subjective fever and fatigue but denies any changes in her weight. HEENT: Negative for any sinus symptoms, seasonal allergies, ear aches, sore throats. RESPIRATORY: Denies cough, wheezing, congestion or shortness of breath. CARDIOVASCULAR: Denies any chest pains, tachycardia, palpitations or syncopal episodes. GASTROINTESTINAL: Negative for any abdominal pains, nausea, vomiting, diarrhea or constipation. GENITOURINARY: Denies hematuria, polyuria, dysuria or other urinary symptoms. EXTREMITIES: As per History of Present Illness. NEUROLOGIC: Negative for any weakness, dizziness, seizures or ataxia. PHYSICAL EXAMINATION: VITAL SIGNS: VITAL SIGNS: Temperature 98, pulse 100, blood pressure 134/77, respirations 16, satting 98% on room air. Admission weight was 103.9 kg. GENERAL: On admission to the Medical/Surgical floor, the patient appears comfortable, resting, in no acute distress. She is well hydrated, mildly obese. HEENT: Tympanic membranes are clear bilaterally. Oropharynx is pink and moist without any lesions. NECK: Supple, non-tender with full range of motion. No jugular venous distention. CHEST: Lungs were clear to auscultation bilaterally without any rhonchi, wheezing or rales. CARDIOVASCULAR: Regular rate and rhythm without appreciable murmurs, gallops, or rubs. ABDOMEN: Soft, obese but non-tender with positive bowel sounds. EXTREMITIES: No calf tenderness noted. There is notable swelling and erythema to the left lower extremity with petechial rash extending circumferentially around the lower extremity up to the mid tibia. It has been marked. Pulses are detectable with Doppler and have been marked. No obvious trauma, lesions, drainage, fluctuations or other areas concerning for abscess formation. There are multiple scars on the dorsal aspect of the foot. The leg is warm to touch and quite painful to palpation. NEUROLOGIC: Cranial nerves II-XII are grossly intact. Facial features were symmetrical. Extraocular movements are within normal limits. There is no notable nystagmus. She was alert and oriented times three. INTEGUMENT: Skin was pink, warm and dry with noted exception to the lower left extremity as noted above with cellulitis. LABORATORY: White count was 10,700 with hemoglobin 13.9, hematocrit 41.0, platelet count 194,000. Differential did show a left shift. Sed rate was elevated at 66. Chemistries showed sodium 130 but initial glucose was 540 with corrected sodium of 137, potassium 3.9. Anion gap was normal at 15, carbon dioxide 24, BUN 24, creatinine 0.86. Lactic acid 1.7, calcium 8.3. Bilirubin is slightly elevated at 1.3. All other liver functions were normal with C reactive protein showing elevation at 44.8. Urinalysis is pending. MICROBIOLOGY: No microbiology specimens other than blood culture is pending. RADIOLOGY: Ankle, foot and tibial x-rays were completed on admission to the Medical/Surgical floor and per radiology interpretation there was soft tissue swelling noted around the left ankle joint as well as the dorsal aspect of the foot. No acute fractures or dislocations. No mention of any abscess formation. ASSESSMENT: 1. Left lower extremity cellulitis/erysipelas with no obvious abscess formation complicated by underlying hardware from multiple surgeries for Charcot foot requiring initiation of parenteral antibiotics, including vancomycin and Cefepime. 2. Poorly controlled diabetes with initial blood sugar over 500 complicating # 1. 3. Elevated inflammatory markers, including CRP and sed rate secondary to #1. 4. Diabetic peripheral neuropathy. 5. Hypertension. PLAN: The patient is going to be admitted for initiation of treatment for underlying cellulitis with vancomycin and Cefepime. At this point, x-rays have shown no complications such as abscess formation or mention of any osteomyelitis , but there is still the remote concern for complications due to the multiple underlying hardware from past surgeries. The area on her leg has been marked for measurements for comparisons as well as pedal pulses have been marked for Doppler. I will plan to get an ultrasound in the morning to further rule out deep venous thrombus. Will continue antibiotics with anticipation of length of stay to be at least 2 to 3 days. Will provide pain management with Tramadol as needed. Will start her on insulin sliding scale as well as Lantus once she brings her Lantus for usage as well as additional 8 units for a.c. coverage, and monitor blood sugars closely. I will go ahead and start her on some IV fluids with normal saline with 20 of potassium at 150 an hour and reevaluate in the morning. She will keep her leg elevated on 2 pillows as much as possible. Will resume her home medications once those have been updated and verified. She will continue with antibiotics until she is afebrile or clinically improved well enough to continue with possibly outpatient management and oral medications. Will continue to monitor her blood cultures until discharge. Again, anticipate 2 to 3 day admission. Until that point the patient will be closely monitored and treated appropriately. #[id number] [facility]
[2017-12-16] MEDS ORDERED: VANCOMYCIN HCL INJ 500 MG VIAL ONE (16:09)
[2017-12-16] MEDS ORDERED: SODIUM CHLORIDE 0.9% 250ML 250 ML ONE ×2 (16:09→22:30)
[2017-12-16] MEDS ORDERED: VANCOMYCIN HCL INJ 1,000 MG VIAL IVPB ONE ×2 (16:09→22:30)
--- NOTE | 2017-12-16 16:15 | ED.PDOC ---
History of Present Illness - General Chief Complaint: Skin/Abrasion/Tear Stated Complaint: lower leg swelling and redness Time Seen by Provider: 12/16/17 12:43 Source: patient Exam Limitations: no limitations - History of Present Illness Initial Comments: the patient is a 47-year-old female presenting to the emergency room secondary to left lower extremity cellulitis starting about mid tibia level going down. The patient has had cellulitis in his lower extremity before. She has had several surgeries in this lower extremity before. She is a diabetic. Sugars have recently been poorly controlled. She is obviously not been keeping the foot clean. No definite fevers. No nausea or vomiting. She does have petechia in the area and it is exquisitely tender to palpation. There is 2+ edema to left lower extremity as well. Timing/Duration: 24 hours Severity: moderate Improving Factors: nothing Worsening Factors: nothing Associated Symptoms: denies symptoms Allergies/Adverse Reactions: Allergies Penicillins Allergy (Severe, Verified 12/16/17 12:53) Anaphylaxis Codeine Allergy (Intermediate, Verified 12/16/17 12:53) Hives Iodine Allergy (Mild, Verified 12/16/17 12:53) Sulfa Drugs Allergy (Mild, Verified 12/16/17 12:53) Sulfa based diabetes medications, but reports she can take sulfa abx. Sulfa based diabetes medciations cause nausea and vomitting. Insulin Adverse Reaction (Mild, Verified 12/16/17 12:53) Patient reports she can not have over 50 units at a time that she will retain fluid and have significant weight gain. Morphine Adverse Reaction (Verified 12/16/17 12:53) Changes personality and makes patient violent. Home Medications: Ambulatory Orders Lisinopril/Hctz 20-25 mg [Zestoretic 20-25 mg] 1 ea PO DAILY #30 tab 06/19/13 Dulaglutide [Trulicity] 1.5 mg SC WKLY 08/14/16 Empagliflozin [Jardiance] 25 mg PO DAILY 08/14/16 Gabapentin 600 mg PO BID 08/14/16 Tramadol HCl [Ultram] 100 mg PO Q8H PRN 08/14/16 Dextromethorphan-Guaifenesin [Mucinex Dm Maximum Streng 60-1200 mg] 1 tab PO BID PRN 04/04/17 Furosemide 20 mg PO DAILY PRN 04/04/17 Insulin Glargine [Lantus Solostar] 25 units SUBCU DAILYBK 04/04/17 Metformin HCl [Metformin HCl ER] 1,000 mg PO BID 04/04/17 Novolog 0 bottle SUBCU PRN PRN 04/04/17 Olopatadine HCl 0.1 % BOTH_EYES BID PRN 04/04/17 Vancomycin Per Pharmacy 1 ea INJ ONCE each 04/05/17 Review of Systems - Review of Systems Constitutional: States: no symptoms reported EENTM: States: no symptoms reported Respiratory: States: no symptoms reported Cardiology: States: no symptoms reported Gastrointestinal/Abdominal: States: no symptoms reported Genitourinary: States: no symptoms reported Musculoskeletal: States: see HPI Skin: States: see HPI Neurological: States: no symptoms reported Endocrine: States: no symptoms reported All other Systems: No Change from Baseline Past Medical History (General) - Patient Medical History Hx Seizures: No Hx Stroke: No Hx Asthma: No Hx of COPD: No Hx Cardiac Disorders: Yes - cardiac work-up for similar presentation 3 to 4 years ago and in June Hx Congestive Heart Failure: No Hx Pacemaker: No Hx Hypertension: Yes Hx Diabetes: Yes - insulin Hx Gastroesophageal Reflux: Yes Hx Cancer: No Hx Hepatitis C: No Hx MRSA: No Surgical History: cholecystectomy, tonsillectomy, other - Vaccination History Hx Tetanus, Diphtheria Vaccination: No Hx Influenza Vaccination: No Hx Pneumococcal Vaccination: No - Social History Hx Tobacco Use: No Hx Chewing Tobacco Use: No Hx Alcohol Use: No Hx Substance Use: No Hx Substance Use Treatment: No Hx Depression: Yes Hx Physical Abuse: No Hx Emotional Abuse: No Hx Suspected Abuse: No - Female History Patient : No - test negative Family Medical History - Family History Mother Family History: No Known Age (years): 72 Living Status: Still Living Hx Family Asthma: No Hx Family Congestive Heart Failure: No Hx Family Hypertension: Yes Hx Family Stroke: Yes - TIA Hx Cardiac Disease: No Hx Family Diabetes: No Hx Family Cancer: No Physical Exam - Physical Exam General Appearance: Alert, Comfortable, No apparent distress Eye Exam: bilateral normal Ears, Nose, Throat: hearing grossly normal, normal ENT inspection, normal pharynx Neck: non-tender, supple Respiratory: lungs clear, normal breath sounds, no respiratory distress, no accessory muscle use Cardiovascular/Chest: normal peripheral pulses, regular rate, rhythm, no edema Peripheral Pulses: radial,right: 2+, radial,left: 2+ Gastrointestinal/Abdominal: non tender - obese, soft Rectal Exam: deferred Back Exam: normal inspection, no CVA tenderness Extremity: normal range of motion - with chronic limitations, no calf tenderness , normal capillary refill, pedal edema, swelling 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: 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 This appears to be a recurrent issue. Blood cultures have been taken. There is no elma pus to culture at this time. The patient is being placed on vancomycin and cefepime empirically. Admitting for IV antibiotics. She has also received 20 units of subcutaneous insulin for her uncontrolled blood sugar. This will of course need to be rechecked and followed. Admit for continued care. - Results/Orders Results/Orders: Laboratory Tests 12/16/17 12/16/17 12/16/17 13:08 13:08 13:08 WBC 10.7 RBC 4.53 Hgb 13.9 Hct 41.0 MCV 90.4 MCH 30.6 MCHC 33.9 RDW 12.9 Plt Count 194 MPV 8.6 Absolute Neuts (auto) 9.50 H Absolute Lymphs (auto) 0.80 L Absolute Monos (auto) 0.50 Absolute Eos (auto) 0.00 Absolute Basos (auto) 0.00 Neutrophils % 87.9 H Lymphocytes % 7.2 L Monocytes % 4.5 Eosinophils % 0.1 L Basophils % 0.3 ESR 66 H Sodium 130 L Potassium 3.9 Chloride 94 L Carbon Dioxide 24 Anion Gap 15.9 BUN 24 H Creatinine 0.86 BUN/Creatinine Ratio 27.9 H Random Glucose 540 H* Serum Osmolality 288.8 Lactic Acid Calcium 8.3 L Total Bilirubin 1.3 H AST 28 ALT 18 Alkaline Phosphatase 104 LD Total 178 C-Reactive Protein 44.8 H* Serum Total Protein 7.3 Albumin 3.0 L Globulin 4.3 H Albumin/Globulin Ratio 0.7 L 12/16/17 13:08 WBC RBC Hgb Hct MCV MCH MCHC RDW Plt Count MPV Absolute Neuts (auto) Absolute Lymphs (auto) Absolute Monos (auto) Absolute Eos (auto) Absolute Basos (auto) Neutrophils % Lymphocytes % Monocytes % Eosinophils % Basophils % ESR Sodium Potassium Chloride Carbon Dioxide Anion Gap BUN Creatinine BUN/Creatinine Ratio Random Glucose Serum Osmolality Lactic Acid 1.7 Calcium Total Bilirubin AST ALT Alkaline Phosphatase LD Total C-Reactive Protein Serum Total Protein Albumin Globulin Albumin/Globulin Ratio Departure - Departure Clinical Impression: Cellulitis of left foot Uncontrolled diabetes mellitus Qualifiers: Diabetes mellitus type: type 2 Glycemic state: with hyperglycemia Qualified Code(s): E11.65 - Type 2 diabetes mellitus with hyperglycemia Disposition: Admit Patient Home Medications: Ambulatory Orders Lisinopril/Hctz 20-25 mg [Zestoretic 20-25 mg] 1 ea PO DAILY #30 tab 06/19/13 Dulaglutide [Trulicity] 1.5 mg SC WKLY 08/14/16 Empagliflozin [Jardiance] 25 mg PO DAILY 08/14/16 Gabapentin 600 mg PO BID 08/14/16 Tramadol HCl [Ultram] 100 mg PO Q8H PRN 08/14/16 Dextromethorphan-Guaifenesin [Mucinex Dm Maximum Streng 60-1200 mg] 1 tab PO BID PRN 04/04/17 Furosemide 20 mg PO DAILY PRN 04/04/17 Insulin Glargine [Lantus Solostar] 25 units SUBCU DAILYBK 04/04/17 Metformin HCl [Metformin HCl ER] 1,000 mg PO BID 04/04/17 Novolog 0 bottle SUBCU PRN PRN 04/04/17 Olopatadine HCl 0.1 % BOTH_EYES BID PRN 04/04/17 Vancomycin Per Pharmacy 1 ea INJ ONCE each 04/05/17 Decision To Admit - Decistion To Admit Decision to Admit Reason: Medical Nature Decision to Admit Date: 12/16/17 Decision to Admit Time: 16:18
[2017-12-16] MEDS ORDERED: HYDROcodone 5MG/APAP 325MG 1 EA TAB PO ONE (16:41)
[2017-12-16] MEDS ORDERED: traMADol HCL 50 MG TAB PO ONE (16:49)
[2017-12-16] MEDS ORDERED: SODIUM CHLORIDE 0.9% (FLUSH) 10 ML SYG IV PRN (17:26)
[2017-12-16] MEDS ORDERED: GLUCAGON INJ 1 MG VIAL SUBCU PRN (17:26)
[2017-12-16] MEDS ORDERED: HYDROcodone 5MG/APAP 325MG 1 EA TAB PO PRN (17:26)
[2017-12-16] MEDS ORDERED: ACETAMINOPHEN 325 MG TAB PO PRN (17:26)
[2017-12-16] MEDS ORDERED: DEXTROSE 50% 25 GM/50 ML SYG IV PRN (17:26)
[2017-12-16] MEDS ORDERED: VANCOMYCIN PER PHARMACY INJ SCH (17:30)
[2017-12-16] MEDS ORDERED: IV SET AND CAP CHANGE INJ INJ SCH (17:30)
--- NOTE | 2017-12-16 19:07 | RAD ---
PROCEDURE: Ankle,Left 2 Views CLINICAL HISTORY: Cellulitis INDICATION: Same as above COMPARISON: None . TECHNIQUE: Two Views of the left ankle were done. FINDINGS: There is no evidence of acute fractures or dislocation involving the left ankle. There is generalized soft tissue edema around the left ankle. Prior surgery in the region of the visualized left foot is noted. There is moderate size plantar calcaneal spur The talar dome and the subtalar joints are unremarkable. The joint spaces are relatively well-maintained. IMPRESSION: There is generalized soft tissue edema around the left ankle Place of interpretation: Teleradiology. Electronically signed by: Azeem Jeronimo MD 12/16/2017 7:06 PM CDT Workstation: [id number]
--- NOTE | 2017-12-16 19:08 | RAD ---
PROCEDURE: Foot,Left 2 Views CLINICAL HISTORY: Cellulitis INDICATION: Same as above COMPARISON: X-ray of the left ankle done concurrently on the same day . TECHNIQUE: Two Views of the left foot were done. FINDINGS: There is no evidence of acute fractures or dislocation involving the bones of the left foot. There is prior surgery in the region of the third and fourth metatarsal bones with exuberant callus formation noted in the proximal diaphysis third metatarsal bone. There is no visualization of air in the soft tissues. There is moderate size plantar calcaneal spur. Soft tissue swelling is seen along the dorsum of the left foot IMPRESSION: Soft tissue swelling is seen along the dorsum of the left foot Place of interpretation: [id number]. Electronically signed by: Azeem Jeronimo MD 12/16/2017 7:07 PM CDT Workstation: [id number]
--- NOTE | 2017-12-16 19:09 | RAD ---
PROCEDURE: Tibia/Fibula,Left CLINICAL HISTORY: Cellulitis INDICATION: Same as above COMPARISON: X-ray of the left ankle done on the same day concurrently . TECHNIQUE: Two Views of the left leg were done. FINDINGS: There is no evidence of acute fractures or dislocation involving the left tibia or the fibula. There is no visualization of any periosteal reactions. Limited valuation of the adjacent knee and ankle joints does not show any acute bony abnormality. There is soft tissue swelling around the left ankle joint. There is moderate size plantar calcaneal spur There is no visualization of any radiopaque foreign bodies in the evaluated soft tissues. IMPRESSION: There is soft tissue swelling around the left ankle joint Place of interpretation: Teleradiology. Electronically signed by: Azeem Jeronimo MD 12/16/2017 7:08 PM CDT Workstation: [id number]
[2017-12-16] MEDS: KCL 20 MEQ/NS 1,000 ML IVS PRN (20:33)
[2017-12-16] MEDS: DULoxetine HCL 20 MG CAP PO SCH (20:34)
[2017-12-16] MEDS: GABAPENTIN 300 MG CAP PO SCH (20:34)
[2017-12-16] MEDS ORDERED: IBUPROFEN 200 MG TAB PO PRN (20:51)
[2017-12-16] MEDS: INSULIN LISPRO 100 UNITS/ML PEN SUBCU SCH (21:00)
[2017-12-17] MEDS: VANCOMYCIN HCL INJ 1,000 MG in SODIUM CHLORIDE 0.9% 250ML 250 ML IVPB SCH ×4 (00:15→23:49)
[2017-12-17] MEDS ORDERED: CEFEPIME 2 GM VIAL ONE ×3 (02:25→19:51)
[2017-12-17] MEDS ORDERED: SODIUM CHL 0.9% 50ML MIN-BAG+ 50 ML IVPB ONE ×3 (02:25→19:50)
[2017-12-17] MEDS: CEFEPIME 2 GM in SODIUM CHL 0.9% 50ML MIN-BAG+ 50 ML IVPB SCH ×2 (02:42→14:38)
[2017-12-17] MEDS ORDERED: PANTOPRAZOLE SODIUM IV 40 MG VIAL ONE (05:20)
[2017-12-17] MEDS: KCL 20 MEQ/NS 1,000 ML IVS PRN ×2 (05:58→20:17)
[2017-12-17] MEDS: INSULIN LISPRO 100 UNITS/ML PEN SUBCU SCH ×8 (07:15→21:19)
[2017-12-17] MEDS: INSULIN GLARGINE 25 UNIT SUBCU SCH (07:22)
[2017-12-17] MEDS: metFORMIN XR 500 MG TAB.ER.24 PO SCH ×2 (07:33→16:49)
[2017-12-17] MEDS ORDERED: VANCOMYCIN HCL INJ 1,000 MG VIAL IVPB ONE ×3 (08:23→19:51)
[2017-12-17] MEDS ORDERED: SODIUM CHLORIDE 0.9% 250ML 250 ML ONE ×3 (08:23→19:50)
[2017-12-17] MEDS: ENOXAPARIN SODIUM 40 MG/0.4 ML SYG SUBCU SCH (09:09)
[2017-12-17] MEDS: GABAPENTIN 300 MG CAP PO SCH ×3 (09:09→20:18)
[2017-12-17] MEDS: hydroCHLOROthiazide 25 MG TAB PO SCH (09:09)
[2017-12-17] MEDS: LISINOPRIL 10 MG TAB PO SCH (09:09)
[2017-12-17] MEDS: NON-FORMULARY MEDICATION 1 EA MIS (Empagliflozin [Jardiance] 25 MG) PO SCH (09:10)
[2017-12-17] MEDS ORDERED: FLUCONAZOLE 150 MG TAB PO ONE (09:24)
[2017-12-17] MEDS: traMADol HCL 50 MG TAB PO PRN (13:37)
[2017-12-17] MEDS: DULoxetine HCL 20 MG CAP PO SCH (20:18)
[2017-12-17] MEDS: SODIUM CHLORIDE 0.9% (FLUSH) 10 ML SYG IV SCH (20:19)
--- NOTE | 2017-12-17 23:14 | PN ---
DATE: 12/17/17 SUPERVISING PHYSICIAN: Yariel Ni M.D. SUBJECTIVE: The patient is lying in bed with her leg elevated on a pillow. She notes that the swelling is not quite as bad as yesterday, but still has some pain. Her blood sugar is still fairly uncontrolled, but she is refusing to take some insulin ordered as she is afraid that her blood sugars will drop too fast. I spent a length of time discussing the fact that we would closely monitor her blood sugars and she agreed that she would try to go with the orders as is. OBJECTIVE: VITAL SIGNS: Temperature 97.8, pulse 82, blood pressure 133/86, respirations 16, satting 97% on room air. I's and O's show a positive balance of 450 with 1550 in, 1100 out. Weight is 104.2 kg. GENERAL: The patient appears to be comfortable in no acute distress. CHEST: Lungs were clear to auscultation bilaterally. HEART: Regular rate and rhythm. ABDOMEN: Obese but soft, non-tender. Positive bowel sounds. EXTREMITIES: Left lower extremity shows decrease in erythema from the borders marked on admission is receding as well the girth of the leg and foot are decreasing. There are some notable small blisters on the second and third toes with no drainage. Petechial hemorrhages are still present but definitely showing some improvement. Doppler pulses are still present. NEUROLOGIC: She is alert and oriented times three. LABORATORY: White count is 7,500 with differential today showing to be without a left shift. Chemistries show a mildly low sodium at 134, potassium 4.6, BUN 27, creatinine 0.87. Blood sugar is still in the 300s between 319 and 372. Calcium 8.1. Liver functions show to be within normal limits. Corrected sodium is approximately 136. Urinalysis did show a significant urinary tract infection with greater than 300 of protein, greater than 1,000 glucose with 40 ketones, moderate amount of blood. Microscopic revealed 5 to 10 RBCs with 20 to 30 WBCs, 5 to 10 epithelials with 3+ bacteria. She did have a vancomycin trough today that was 12.5. MICROBIOLOGY: Urine culture is pending. Blood cultures remain negative at 24 hours. RADIOLOGY: No additional radiographic studies since admission have been completed. Still awaiting ultrasound of the lower extremity to further rule out DVT. ASSESSMENT: 1. Left lower extremity cellulitis/erysipelas with no obvious abscess formation complicated by underlying hardware from multiple surgeries for Charcot foot requiring aggressive parenteral antibiotics, including vancomycin and Cefepime showing clinical improvement. 2. Poorly controlled diabetes with initial blood sugar over 500 further complicating #1. 3. Dehydration secondary to poorly controlled diabetes and hyperglycemia, improving with IV fluids. 4. Elevated inflammatory markers, including CRP and sed rate secondary to #1. 5. Diabetic peripheral neuropathies secondary to poorly controlled diabetes. 6. Poor medical compliance with diabetic regimen. 7. Hypertension showing to be stable. PLAN: Will continue with current antibiotics of vancomycin and Cefepime. Will await findings of the ultrasound and continue with Lovenox at this point to further rule out DVT. X-rays did not show any signs of osteomyelitis or other complications or abscess, therefore will continue with current plan to keep the leg elevated and continue with strong antibiotics. As she shows good clinical improvement, will anticipate length of stay to be at least another 2 to 3 days with parenteral antibiotics until she can transition to oral medications. Will continue to work with her blood sugars. I have added 8 units of insulin a.c. coverage as well as I have reinstituted her Lantus which we may need to increase slightly, but will wait since she is on an 1800 calorie diet at this point. Again, will encourage her to allow the nurses to administer needed insulin to further control her blood sugars. Once she is showing good input orally and more fluid balance, will back off of fluids and saline lock her. Will continue to monitor blood cultures. Her medications have been updated and verified and restarted. Will continue to monitor the patient closely until able to clinical transition to outpatient management. Until then, will monitor and treat appropriately. #[id number] [facility]
[2017-12-18] MEDS: CEFEPIME 2 GM in SODIUM CHL 0.9% 50ML MIN-BAG+ 50 ML IVPB SCH (02:10)
[2017-12-18] MEDS: KCL 20 MEQ/NS 1,000 ML IVS PRN (05:05)
[2017-12-18] MEDS ORDERED: SODIUM CHLORIDE 0.9% 250ML 250 ML ONE ×3 (08:28→19:39)
[2017-12-18] MEDS ORDERED: VANCOMYCIN HCL INJ 1,000 MG VIAL IVPB ONE ×3 (08:28→19:40)
[2017-12-18] MEDS: VANCOMYCIN HCL INJ 1,000 MG in SODIUM CHLORIDE 0.9% 250ML 250 ML IVPB SCH ×3 (08:34→23:41)
[2017-12-18] MEDS: INSULIN LISPRO 100 UNITS/ML PEN SUBCU SCH ×7 (08:39→21:15)
[2017-12-18] MEDS: metFORMIN XR 500 MG TAB.ER.24 PO SCH ×2 (08:42→16:31)
[2017-12-18] MEDS: INSULIN GLARGINE 25 UNIT SUBCU SCH (08:53)
[2017-12-18] MEDS: ENOXAPARIN SODIUM 40 MG/0.4 ML SYG SUBCU SCH (09:37)
[2017-12-18] MEDS: hydroCHLOROthiazide 25 MG TAB PO SCH (09:37)
[2017-12-18] MEDS: LISINOPRIL 10 MG TAB PO SCH (09:37)
[2017-12-18] MEDS: GABAPENTIN 300 MG CAP PO SCH ×3 (09:37→21:15)
[2017-12-18] MEDS: NON-FORMULARY MEDICATION 1 EA MIS (Empagliflozin [Jardiance] 25 MG) PO SCH (09:37)
[2017-12-18] MEDS: SODIUM CHLORIDE 0.9% (FLUSH) 10 ML SYG IV SCH ×2 (09:38→21:16)
[2017-12-18] MEDS: traMADol HCL 50 MG TAB PO PRN ×2 (10:26→21:20)
--- NOTE | 2017-12-18 10:43 | US ---
EXAM DESCRIPTION: Venous,Lower Extremity LT CLINICAL HISTORY: Left leg pain and swelling. COMPARISON: None Available. TECHNIQUE: Left lower extremity venous grayscale, spectral, and color Doppler sonographic images. FINDINGS: There is no DVT identified. There is normal color flow observed with good flow augmentation. All deep veins compress normally. There is soft tissue swelling in the left calf. IMPRESSION: Negative for DVT Electronically signed by: Sha Alcaraz MD 12/18/2017 10:41 AM CDT
[2017-12-18] MEDS: DULoxetine HCL 20 MG CAP PO SCH (21:15)
[2017-12-19] MEDS ORDERED: VANCOMYCIN HCL INJ 1,000 MG VIAL IVPB ONE (07:31)
[2017-12-19] MEDS ORDERED: SODIUM CHLORIDE 0.9% 250ML 250 ML ONE (07:31)
[2017-12-19] MEDS: INSULIN LISPRO 100 UNITS/ML PEN SUBCU SCH ×6 (07:41→12:59)
[2017-12-19] MEDS: INSULIN GLARGINE 25 UNIT SUBCU SCH (07:43)
[2017-12-19] MEDS: metFORMIN XR 500 MG TAB.ER.24 PO SCH (07:52)
[2017-12-19] MEDS: VANCOMYCIN HCL INJ 1,000 MG in SODIUM CHLORIDE 0.9% 250ML 250 ML IVPB SCH (08:29)
[2017-12-19] MEDS: SODIUM CHLORIDE 0.9% (FLUSH) 10 ML SYG IV SCH (08:36)
[2017-12-19] MEDS: ENOXAPARIN SODIUM 40 MG/0.4 ML SYG SUBCU SCH (08:42)
[2017-12-19] MEDS: NON-FORMULARY MEDICATION 1 EA MIS (Empagliflozin [Jardiance] 25 MG) PO SCH (08:42)
[2017-12-19] MEDS: hydroCHLOROthiazide 25 MG TAB PO SCH (08:43)
[2017-12-19] MEDS: LISINOPRIL 10 MG TAB PO SCH (08:43)
[2017-12-19] MEDS: GABAPENTIN 300 MG CAP PO SCH ×2 (08:43→14:40)
--- NOTE | 2017-12-19 09:43 | PN ---
DATE: 12/18/17 SUPERVISING PHYSICIAN: Yariel Ni M.D. SUBJECTIVE: The patient says she feels a little bit worse today. She feels tired, exhausted and has had a slight headache. She feels like this may be from her blood sugars dropping from when she was here with admission of over 500. She is finally utilizing the insulin protocol and is maintaining better controlled. She has remained afebrile. OBJECTIVE: VITAL SIGNS: Temperature 97.9, pulse 94, blood pressure 152/92, respirations 18, satting 93% on room air. I's and O's show a negative balance of 470 with 1330 in, 1800 out. She has had one bowel movement. Weight is 104.8 kg. GENERAL: The patient appears tired but alert. She is laying in bed with her leg elevated. CHEST: Lungs were clear to auscultation bilaterally. HEART: Regular rate and rhythm. ABDOMEN: Obese but soft, non-tender. Positive bowel sounds. EXTREMITIES: Left lower extremity shows continued receding erythema. There are still some petechial areas, mid-fibular area but below the digital becka from admission. The girth of the leg is still decreasing in size. All the toes are still quite swollen and erythemic but still reported with good capillary refill. She notes that she is chronically without any sensation due to her neuropathy. Pulses are still monitored by Doppler and unchanged. NEUROLOGIC: She is alert and oriented times three. LABORATORY: White count is 7,500, hemoglobin 12.3, hematocrit 36.2, platelet count 170,000. Differential today shows to be without a left shift. Chemistries show a slightly low sodium of 134 but corrected with 272 glucose at 135 with BUN 17, creatinine 0.6. Blood sugars have now ranged from 174 to 286. Calcium 7.9 with C-reactive protein down to 11.6 from admission of 44.8. MICROBIOLOGY: Urine culture is pending. Blood cultures remain negative at 48 hours. RADIOLOGY: Radiographic studies include a lower extremity ultrasound that showed to be without DVT.. ASSESSMENT: 1. Left lower extremity cellulitis/erysipelas without noted abscess formation but complicated by extensive underlying hardware from multiple surgeries for Charcot foot repair requiring ongoing aggressive parenteral antibiotics, including vancomycin and initially Cefepime with the patient being stair-stepped down to Rocephin and showing good clinical response. 2. Poorly controlled diabetes on admission with initial blood sugar over 500 further complicating #1 but now showing to be better controlled.. 4. Dehydration due to poorly controlled diabetes and hypoglycemia improving, now uremic after fluids. 5. Elevated inflammatory markers, including C-reactive protein and sed rate secondary to #1 with C-reactive protein improving after initiation of antibiotics. 6. Diabetic peripheral neuropathies secondary to poorly controlled diabetes. 7. Poor medical compliance with diabetic regimen. 8. Hypertension showing to be fairly controlled but needs close monitoring with possible modification of medication regiment to obtain better blood pressure control with the patient currently on 20 mg of lisinopril daily. PLAN: Will continue with current plan of care at this point with vancomycin but will change from Cefepime to Rocephin in anticipation of hopefully discharging tomorrow. Still more aggressive treatment is probably warranted and such, the patient will probably need to be discharged parenteral antibiotics to include vancomycin given her symptomatic risk factors and the multiple surgeries with hardware underlying the area of concern. Will reevaluate in the morning and either discharge on doxycycline or Bactrim or again with possibly continuing with vancomycin parenterally. 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 Until discharge, we will continue to monitor him closely and treat appropriately. #[id number] [facility]
[2017-12-19 15:45] VITALS: BP 163/91; TEMP 97.4; O2SAT 97
== END 2017-12-19 16:17 | disposition home or self-care (01) | DRG 603 ==
LOC: ER 12:29 → MS 14:45
PROVIDERS: ADMIT Nurse Practitioner Family; ATTEND Nurse Practitioner Family
DX: L03.116 Cellulitis of left lower limb (principal); E11.42 Type 2 diabetes mellitus with diabetic polyneuropathy; Z79.84 Long term (current) use of oral hypoglycemic drugs; Z79.4 Long term (current) use of insulin; E11.610 Type 2 diabetes mellitus with diabetic neuropathic arthropathy; I10 Essential (primary) hypertension; F41.9 Anxiety disorder, unspecified; E11.319 Type 2 diabetes mellitus with unspecified diabetic retinopathy without macular edema; Z88.5 Allergy status to narcotic agent; Z88.0 Allergy status to penicillin; Z88.2 Allergy status to sulfonamides; Z88.8 Allergy status to other drugs, medicaments and biological substances; E11.65 Type 2 diabetes mellitus with hyperglycemia; E86.0 Dehydration; Z91.19 Patient's noncompliance with other medical treatment and regimen

== ENCOUNTER 2018-02-15 12:03 | Emergency (ER) | payer BC ==
[2018-02-15] MEDS ORDERED: ACETAMINOPHEN 325 MG TAB PO ONE (12:32)
[2018-02-15] MEDS ORDERED: SODIUM CHLORIDE 0.9% 1000ML 1,000 ML IVS ONE ×4 (12:32→16:06)
[2018-02-15] MEDS ORDERED: CLINDAMYCIN IV 900MG 900 MG in PREMIX BAG 1 BAG IVPB ONE (13:15)
[2018-02-15] MEDS ORDERED: traMADol HCL 50 MG TAB PO ONE (13:27)
[2018-02-15] MEDS ORDERED: CLINDAMYCIN IV 900MG 50 ML IVPB ONE (13:28)
--- NOTE | 2018-02-15 13:35 | ED.PDOC ---
History of Present Illness - General Chief Complaint: Fever Stated Complaint: LEFT ANKLE CELLULITIS Time Seen by Provider: 02/15/18 13:05 Source: patient Exam Limitations: no limitations - History of Present Illness Initial Comments: Patient is an IDDM with chronic left foot pain and chronically intermittent cellulitis who presents with redness in her left foot since this morning. She says it was mildly swollen yesterday but then this morning it became red and she developed a fever. 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 She had surgery on those bones and since then she says she gets cellulitis in that foot about every 6-8 weeks. She has been hospitalized due to the cellulitis before. No other complaints at this time. Timing/Duration: 4-6 hours Severity: severe Improving Factors: nothing Worsening Factors: nothing Associated Symptoms: fever/chills Allergies/Adverse Reactions: Allergies Penicillins Allergy (Severe, Verified 12/16/17 17:27) Anaphylaxis Codeine Allergy (Intermediate, Verified 12/16/17 17:27) Hives Iodine Allergy (Mild, Verified 12/16/17 17:27) Sulfa Drugs Allergy (Mild, Verified 12/16/17 17:27) Sulfa based diabetes medications, but reports she can take sulfa abx. Sulfa based diabetes medciations cause nausea and vomitting. Insulin Detemir [From Levemir] Adverse Reaction (Verified 12/16/17 17:27) Morphine Adverse Reaction (Verified 12/16/17 17:27) Changes personality and makes patient violent. Phenol [From Levemir] Adverse Reaction (Verified 12/16/17 17:27) Home Medications: Ambulatory Orders Lisinopril/Hctz 20-25 mg [Zestoretic 20-25 mg] 1 ea PO DAILY #30 tab 06/19/13 Empagliflozin [Jardiance] 10 mg PO DAILY 08/14/16 Gabapentin 600 mg PO TID 08/14/16 Tramadol HCl [Ultram] 100 mg PO TID PRN 08/14/16 Furosemide 20 mg PO DAILY PRN 04/04/17 Novolog 0 bottle SUBCU PRN PRN 04/04/17 DULoxetine HCL [Cymbalta] 30 mg PO BEDTIME 12/16/17 Metformin HCl [Metformin HCl ER] 500 mg PO BIDFD 12/16/17 Insulin Glargine [Toujeo Solostar] 25 unit SC QAM 02/15/18 Semaglutide [Ozempic] 2 mg SC DAILY 02/15/18 Review of Systems - Review of Systems Constitutional: States: see HPI, fever EENTM: States: no symptoms reported Respiratory: States: no symptoms reported Cardiology: States: no symptoms reported Gastrointestinal/Abdominal: States: no symptoms reported Genitourinary: States: no symptoms reported Musculoskeletal: States: no symptoms reported Skin: States: other - see HPI Neurological: States: paresthesia - in left foot, there is loss of sensation but she does have movement Endocrine: States: see HPI Hematologic/Lymphatic: States: no symptoms reported Past Medical History (General) - Patient Medical History Hx Seizures: No Hx Stroke: No Hx Asthma: No Hx of COPD: No Hx Cardiac Disorders: Yes - cardiac work-up for similar presentation 3 to 4 years ago and in June Hx Congestive Heart Failure: No Hx Pacemaker: No Hx Hypertension: Yes Hx Diabetes: Yes - insulin Hx Gastroesophageal Reflux: Yes Hx Cancer: No Hx Hepatitis C: No Hx MRSA: No - Vaccination History Hx Tetanus, Diphtheria Vaccination: No Hx Influenza Vaccination: No Hx Pneumococcal Vaccination: No - Social History Hx Tobacco Use: No Hx Chewing Tobacco Use: No Hx Alcohol Use: No Hx Substance Use: No Hx Substance Use Treatment: No Hx Depression: Yes Hx Physical Abuse: No Hx Emotional Abuse: No Hx Suspected Abuse: No - Female History Patient : No - test negative Family Medical History - Family History Mother Family History: No Known Age (years): 72 Living Status: Still Living Hx Family Asthma: No Hx Family Congestive Heart Failure: No Hx Family Hypertension: Yes Hx Family Stroke: Yes - TIA Hx Cardiac Disease: No Hx Family Diabetes: No Hx Family Cancer: No Physical Exam - Physical Exam General Appearance: Alert Eye Exam: bilateral normal Ears, Nose, Throat: normal ENT inspection Neck: non-tender, full range of motion, supple Respiratory: lungs clear, normal breath sounds Cardiovascular/Chest: normal peripheral pulses, regular rate, rhythm, no edema Gastrointestinal/Abdominal: normal bowel sounds, non tender, soft Back Exam: normal inspection, no CVA tenderness Extremity: other - erythmatic non-blanching rash from the dorsum of the left foot to the distal third of the lower left leg. Mildly TTP over the great toe which she says is chronic for her. Rash is NTTP. Warm to touch. Neurologic: alert, normal mood/affect, oriented x 3, other - numbness of the toes and dorsum of the left foot. 4/5 AROM of toes and foot Skin Exam: other - erythmatic non-blanching rash from the dorsum of the left foot to the distal third of the lower left leg. Mildly TTP over the great toe which she says is chronic for her. Rash is NTTP. Warm to touch. Lymphatic: no adenopathy Progress - Progress Progress: 02/15/18 15:59 Laboratory Tests 02/15/18 02/15/18 02/15/18 12:40 12:40 12:40 WBC 18.7 H RBC 4.67 Hgb 13.9 Hct 41.6 MCV 89.2 MCH 29.7 MCHC 33.3 RDW 12.9 Plt Count 321 MPV 7.9 Absolute Neuts (auto) 17.60 H Absolute Lymphs (auto) 0.50 L Absolute Monos (auto) 0.40 Absolute Eos (auto) 0.10 Absolute Basos (auto) 0.00 Neutrophils % 94.1 H Lymphocytes % 2.9 L Monocytes % 2.2 Eosinophils % 0.5 L Basophils % 0.3 Sodium 131 L Potassium 3.9 Chloride 99 L Carbon Dioxide 21 Anion Gap 14.9 BUN 16 Creatinine 0.43 L BUN/Creatinine Ratio 37.2 H POC Glucose 346 H Random Glucose 358 H Serum Osmolality 278.3 Lactic Acid Calcium 9.0 Serum Ketones 02/15/18 02/15/18 02/15/18 12:40 12:40 14:25 WBC RBC Hgb Hct MCV MCH MCHC RDW Plt Count MPV Absolute Neuts (auto) Absolute Lymphs (auto) Absolute Monos (auto) Absolute Eos (auto) Absolute Basos (auto) Neutrophils % Lymphocytes % Monocytes % Eosinophils % Basophils % Sodium Potassium Chloride Carbon Dioxide Anion Gap BUN Creatinine BUN/Creatinine Ratio POC Glucose Random Glucose Serum Osmolality Lactic Acid 3.1 H* 3.5 H* Calcium Serum Ketones Small I suspected the patient might be septic from the cellulitis so she was started on NS one liter IV bolus and an initial lactic acid was 3.1. After one liter, her lactic acid was 3.5. She was given Clindamycin 900 mg IV x one with the first liter and blood cultures were taken and sent. Two more liters of NS were given while in the E.D. and she was also given Vancomycin 1 gram IV x one. Her blood sugar was 346 and potassium was 3.9 so she was given Human insulin 10 units IV x one and potassium chloride 40 meq po x one since her IV line was tied up with the fluids and the Vancomycin. She was transferred to [facility] with a diagnosis of cellulitis and sepsis. Departure - Departure Clinical Impression: Cellulitis, Septic shock Disposition: Transfer to Hospital Condition: Serious Departure Forms: ED Discharge - Pt. Copy, Patient Portal Self Enrollment Diet: other - as per hospitalist Activity: as per physical therapy Referrals: Estuardo Baptiste MD [Primary Care Provider] - 1-2 Weeks Home Medications: Ambulatory Orders Lisinopril/Hctz 20-25 mg [Zestoretic 20-25 mg] 1 ea PO DAILY #30 tab 06/19/13 Empagliflozin [Jardiance] 10 mg PO DAILY 08/14/16 Gabapentin 600 mg PO TID 08/14/16 Tramadol HCl [Ultram] 100 mg PO TID PRN 08/14/16 Furosemide 20 mg PO DAILY PRN 04/04/17 Novolog 0 bottle SUBCU PRN PRN 04/04/17 DULoxetine HCL [Cymbalta] 30 mg PO BEDTIME 12/16/17 Metformin HCl [Metformin HCl ER] 500 mg PO BIDFD 12/16/17 Insulin Glargine [Toujeo Solostar] 25 unit SC QAM 02/15/18 Semaglutide [Ozempic] 2 mg SC DAILY 02/15/18
--- NOTE | 2018-02-15 13:48 | RAD ---
EXAM DESCRIPTION: Foot,Left 3 Views CLINICAL HISTORY: celllitis and fever COMPARISON: December 16, 2017. FINDINGS: 3 views of the left foot again demonstrate diffuse osteopenia of the osseous structures. Microplate and screw fixation involving the mid to proximal third metatarsal to lateral cuneiform bone is again seen without hardware failure or obvious loosening. There is bony fusion of the third metatarsal and lateral cuneiform bone with exuberant callus formation again identified extending towards the base of the second metatarsal. Microplate and screw fixation of the proximal fourth metatarsal is seen without complicating features. No acute fracture is identified. Moderate joint space narrowing and osteoarthritic changes of the midfoot tarsal bones and tarsometatarsal joints is seen. Large plantar and small Achilles enthesophytes of the calcaneus are seen. There is diffuse soft tissue swelling of the dorsum of the foot although this is less prominent than previous exam. No periosteal reaction or bone destructive changes. Mild osteoarthritic changes of the first metatarsophalangeal joint. There is solid fusion of the first metatarsal joint and medial cuneiform bone. Fusion at the base of the second metatarsal and middle cuneiform bone is seen. IMPRESSION: Stable post surgical changes to the left foot are again seen with fusion of the tarsometatarsal joints of the first through third digits. Swelling of the left foot is again seen, but slightly improved from previous. No acute fracture or dislocation is appreciated. Osteoarthritic changes of the midfoot tarsal bones and first metatarsophalangeal joint are seen Electronically signed by: Jaya Tapia MD 02/15/2018 1:47 PM [facility]
[2018-02-15] MEDS ORDERED: INSULIN, REG.(HUMAN) 100 U/ML VIAL SUBCU ONE (14:49)
[2018-02-15] MEDS ORDERED: POTASSIUM CHLORIDE 20mEq 10ML VIAL IV ONE (14:50)
[2018-02-15] MEDS ORDERED: VANCOMYCIN HCL INJ 1,000 MG in SODIUM CHLORIDE 0.9% 250ML 250 ML IVPB ONE (14:57)
[2018-02-15] MEDS ORDERED: VANCOMYCIN HCL INJ 1,000 MG VIAL IVPB ONE (15:02)
[2018-02-15] MEDS ORDERED: SODIUM CHLORIDE 0.9% 250ML 250 ML ONE (15:03)
[2018-02-15] MEDS ORDERED: POTASSIUM CHLORIDE 20 MEQ TAB PO ONE (15:07)
[2018-02-15] MEDS ORDERED: IBUPROFEN 200 MG TAB PO ONE (16:14)
[2018-02-15 17:16] VITALS: BP 136/85; TEMP 101.3; O2SAT 97
[2018-02-15] MEDS ORDERED: ONDANSETRON INJ 4 MG/2 ML VIAL ONE (17:34)
[2018-02-15] MEDS ORDERED: ONDANSETRON INJ 4 MG/2 ML VIAL IV ONE (17:35)
== END 2018-02-15 17:28 | disposition short-term general hospital (02) ==
LOC: ER 12:03
DX: A41.9 Sepsis, unspecified organism (principal); L03.116 Cellulitis of left lower limb; R65.21 Severe sepsis with septic shock; R21 Rash and other nonspecific skin eruption; I10 Essential (primary) hypertension; E11.9 Type 2 diabetes mellitus without complications; F32.9 Major depressive disorder, single episode, unspecified; Z79.4 Long term (current) use of insulin; Z79.899 Other long term (current) drug therapy
CPT/HCPCS: 36415; 36416; 36600; 73630; 80048; 81001; 82009; 82803; 82805; 82948; 83605; 85025; 87040; J2405; J3370; J3490; J7030; J7050

== ENCOUNTER 2018-04-19 09:10 | Emergency (ER) | payer BC ==
[2018-04-19] MEDS ORDERED: KETOROLAC TROMETHAMINE INJ 30 MG/ML VIAL IM ONE (09:23)
[2018-04-19 09:38] VITALS: TEMP 97.3
--- NOTE | 2018-04-19 09:45 | RAD ---
EXAM DESCRIPTION: Foot,Left 3 Views CLINICAL HISTORY: left foot pain, charcot neuropathy COMPARISON: Radiographs dated 02/15/2018. TECHNIQUE: AP, LATERAL, AND OBLIQUE FINDINGS: The visualized bones appear poorly mineralized. No acute fracture or dislocation. The soft tissues appear grossly unremarkable. Plate and screw fixation of the third and fourth metatarsals are identified. Changes of midfoot arthropathy are noted. Plantar and posterior calcaneal spurs are present. IMPRESSION: Stable appearance of the left foot compared to 02/15/2018. Electronically signed by: Sumi Martinez MD 04/19/2018 9:44 AM [facility]
[2018-04-19] MEDS ORDERED: HYDROcodone 7.5MG/APAP 325MG 1 EA TAB PO ONE (09:51)
--- NOTE | 2018-04-19 10:39 | ED.PDOC ---
History of Present Illness - General Chief Complaint: Lower Extremity Injury Stated Complaint: Left foot pain Time Seen by Provider: 04/19/18 09:22 Source: patient Exam Limitations: no limitations - History of Present Illness Initial Comments: the patient's a 47-year-old female presenting to the emergency room secondary to left lower foot pain has been worsening over the last day or 2. She does have chronic foot pain from neuropathy. She does take tramadol and Cymbalta normally. No evidence of any new erythema or any new infection. She has had multiple infections in the past with it. No fever. No trauma. She cannot feel her feet so she does sometimes injure them without knowing. Timing/Duration: 24 hours Severity: moderate Improving Factors: nothing Worsening Factors: nothing Associated Symptoms: denies symptoms Allergies/Adverse Reactions: Allergies Penicillins Allergy (Severe, Verified 12/16/17 17:27) Anaphylaxis Codeine Allergy (Intermediate, Verified 12/16/17 17:27) Hives Iodine Allergy (Mild, Verified 12/16/17 17:27) Sulfa Drugs Allergy (Mild, Verified 12/16/17 17:27) Sulfa based diabetes medications, but reports she can take sulfa abx. Sulfa based diabetes medciations cause nausea and vomitting. Insulin Detemir [From Levemir] Adverse Reaction (Verified 12/16/17 17:27) Morphine Adverse Reaction (Verified 12/16/17 17:27) Changes personality and makes patient violent. Phenol [From Levemir] Adverse Reaction (Verified 12/16/17 17:27) Home Medications: Ambulatory Orders Lisinopril/Hctz 20-25 mg [Zestoretic 20-25 mg] 1 ea PO DAILY #30 tab 06/19/13 Empagliflozin [Jardiance] 10 mg PO DAILY 08/14/16 Gabapentin 600 mg PO TID 08/14/16 Tramadol HCl [Ultram] 100 mg PO TID PRN 08/14/16 Furosemide 20 mg PO DAILY PRN 04/04/17 Novolog 0 bottle SUBCU PRN PRN 04/04/17 DULoxetine HCL [Cymbalta] 30 mg PO BEDTIME 12/16/17 Metformin HCl [Metformin HCl ER] 500 mg PO BIDFD 12/16/17 Insulin Glargine [Toujeo Solostar] 25 unit SC QAM 02/15/18 Semaglutide [Ozempic] 2 mg SC DAILY 02/15/18 Qiramnmlfrlpd-Yaxz-Jfystbazhp [Fioricet] 1 ea PO Q8H PRN #21 tab 04/19/18 Review of Systems - Review of Systems Constitutional: States: no symptoms reported EENTM: States: no symptoms reported Respiratory: States: no symptoms reported Cardiology: States: no symptoms reported Gastrointestinal/Abdominal: States: no symptoms reported Genitourinary: States: no symptoms reported Musculoskeletal: States: see HPI Skin: States: no symptoms reported Neurological: States: see HPI Endocrine: States: no symptoms reported All other Systems: No Change from Baseline Past Medical History (General) - Patient Medical History Hx Seizures: No Hx Stroke: No Hx Asthma: No Hx of COPD: No Hx Cardiac Disorders: Yes - cardiac work-up for similar presentation 3 to 4 years ago and in June Hx Congestive Heart Failure: No Hx Pacemaker: No Hx Hypertension: Yes Hx Diabetes: Yes Hx Gastroesophageal Reflux: Yes Hx Cancer: No Hx Hepatitis C: No Hx MRSA: No Surgical History: cholecystectomy, tonsillectomy, other - Vaccination History Hx Tetanus, Diphtheria Vaccination: No Hx Influenza Vaccination: No Hx Pneumococcal Vaccination: No Immunizations Up to Date: Yes - Social History Hx Tobacco Use: No Hx Chewing Tobacco Use: No Hx Alcohol Use: Yes - very rarely Hx Substance Use: No Hx Substance Use Treatment: No Hx Depression: Yes Hx Physical Abuse: No Hx Emotional Abuse: No Hx Suspected Abuse: No - Female History Patient is a Female of Child Bearing Age (10 -59 yrs old): Yes Patient : No - test negative Family Medical History - Family History Mother Family History: No Known Age (years): 72 Living Status: Still Living Hx Family Asthma: No Hx Family Congestive Heart Failure: No Hx Family Hypertension: Yes Hx Family Stroke: Yes - TIA Hx Cardiac Disease: No Hx Family Diabetes: No Hx Family Cancer: No Physical Exam - Physical Exam General Appearance: Alert, Comfortable, No apparent distress Ears, Nose, Throat: hearing grossly normal, normal ENT inspection, normal pharynx Neck: full range of motion, supple Respiratory: no respiratory distress, no accessory muscle use Cardiovascular/Chest: normal peripheral pulses, no edema Peripheral Pulses: dorsalis pedis,right: 2+, dorsalis pedis,left: 2+ Gastrointestinal/Abdominal: non tender - obese, soft Rectal Exam: deferred Back Exam: no CVA tenderness, no vertebral tenderness Extremity: normal range of motion, swelling - mild chronic bilateral lower extremities. Scars are present from previous surgeries. No obvious acute infection. She does have numerous calluses. Neurologic: supervisor type bar and segment II-XII nml as tested, alert, normal mood/affect, oriented x 3, other - chronic decreased sensation to extremities Skin Exam: normal color Comments: Vital Signs - 24 hr 04/19/18 04/19/18 09:19 10:08 Temperature 97.3 F L Pulse Rate [ 80 94 H Left Radial] Respiratory 18 22 Rate Blood Pressure 193/109 167/100 [Left Arm] O2 Sat by Pulse 97 92 L Oximetry Progress - Progress Progress: 04/19/18 10:39 the patient is a 47-year-old female presenting with acute on chronic left lower foot pain secondary to neuropathic pain. The patient was given a dose of hydrocodone and Toradol. She will be written for Fioricet for as needed use. She needs to keep follow-up with her primary care doctor. No evidence of any infection at this time an x-ray shows no evidence of any new fracture or dislocation. ER warnings were given. Departure - Departure Clinical Impression: Neuropathic pain Disposition: Discharge to Home or Self Care Condition: Fair Departure Forms: ED Discharge - Pt. Copy, Patient Portal Self Enrollment Diet: diabetic diet Activity: increase activity as tolerated Referrals: Estuardo Baptiste MD [Primary Care Provider] - 1-2 Weeks Prescriptions: Gkiptnhwiohhz-Tcpb-Krfhwtixcw [Fioricet] 1 ea PO Q8H PRN #21 tab PRN Reason: Pain Home Medications: Ambulatory Orders Lisinopril/Hctz 20-25 mg [Zestoretic 20-25 mg] 1 ea PO DAILY #30 tab 06/19/13 Empagliflozin [Jardiance] 10 mg PO DAILY 08/14/16 Gabapentin 600 mg PO TID 08/14/16 Tramadol HCl [Ultram] 100 mg PO TID PRN 08/14/16 Furosemide 20 mg PO DAILY PRN 04/04/17 Novolog 0 bottle SUBCU PRN PRN 04/04/17 DULoxetine HCL [Cymbalta] 30 mg PO BEDTIME 12/16/17 Metformin HCl [Metformin HCl ER] 500 mg PO BIDFD 09/26/18 Insulin Glargine [Toujeo Solostar] 25 unit SC QAM 02/15/18 Semaglutide [Ozempic] 2 mg SC DAILY 02/15/18 Ykiplmrkubdxc-Oism-Lszhncqxxn [Fioricet] 1 ea PO Q8H PRN #21 tab 04/19/18 Additional Instructions: the patient is a 47-year-old female presenting with acute on chronic left lower foot pain secondary to neuropathic pain. The patient was given a dose of hydrocodone and Toradol. She will be written for Fioricet for as needed use. She needs to keep follow-up with her primary care doctor. No evidence of any infection at this time an x-ray shows no evidence of any new fracture or dislocation. ER warnings were given.
[2018-04-19 10:55] VITALS: BP 139/81; O2SAT 96
== END 2018-04-19 10:50 | disposition home or self-care (01) ==
LOC: ER 09:10
DX: G62.9 Polyneuropathy, unspecified (principal); M79.672 Pain in left foot; G89.29 Other chronic pain; I10 Essential (primary) hypertension; E11.9 Type 2 diabetes mellitus without complications; K21.9 Gastro-esophageal reflux disease without esophagitis; F32.9 Major depressive disorder, single episode, unspecified; Z79.899 Other long term (current) drug therapy; Z79.4 Long term (current) use of insulin; Z88.0 Allergy status to penicillin; Z88.5 Allergy status to narcotic agent; Z91.041 Radiographic dye allergy status; Z88.2 Allergy status to sulfonamides
CPT/HCPCS: 73630; J1885

== ENCOUNTER 2018-06-28 03:49 | Inpatient (IN) | payer BC ==
[2018-06-28] MEDS ORDERED: INSULIN LISPRO 100 UNITS/ML PEN SUBCU ONE ×2 (04:24→23:20)
[2018-06-28] MEDS ORDERED: IPRATROPIUM/ALBUTEROL 3 ML VIAL NEB ONE (04:24)
--- NOTE | 2018-06-28 04:45 | RAD ---
Chest 2 view on 06/28/2018 CLINICAL INDICATION: Cough COMPARISON: 01/10/2017 FINDINGS: The lungs are clear. There is mild elevation of the right hemidiaphragm. Cardiac, hilar and mediastinal contours are within normal limits. Pulmonary vascularity is within normal limits. No bony abnormality is noted. IMPRESSION: No active disease. Electronically signed by: Constantin Camejo 06/28/2018 4:42 AM CDT
[2018-06-28] MEDS ORDERED: AZITHROMYCIN 250 MG TAB PO ONE (04:49)
[2018-06-28] MEDS ORDERED: SODIUM CHLORIDE 0.9% 1000ML 1,000 ML IVS ONE ×2 (05:01→08:27)
[2018-06-28] MEDS ORDERED: cloNIDine HCL 0.1 MG TAB PO ONE ×2 (05:08→05:59)
[2018-06-28] MEDS ORDERED: SOD CHL 3% *HYPERTONIC* 500ML 160 ML IVS ONE (05:09)
--- NOTE | 2018-06-28 05:13 | ED.PDOC ---
History of Present Illness - General Chief Complaint: Respiratory Problem Stated Complaint: cough Time Seen by Provider: 06/28/18 04:12 Source: patient Exam Limitations: no limitations - History of Present Illness Initial Comments: the patient is a 48-year-old female presenting to the emergency room secondary tosymptoms of a mild recurrent bronchitis along with some abdominal and generalized body cramping. The patient has been out of her GLP-1 inhibitor and her long and short acting insulin for the last couple of weeks and has also been unable to check her blood sugars due to her glucometer not functioning. No apparent history of any overt DKA. She has had multiple episodes of significant hyypoglycemia given her symptoms. She normally does have a very good diabetic regimen however she is unable to afford the co-pays on several medications and therefore has not been taking them. No evidence of any high-grade fever. No respiratory distress. She does have a mildly productive cough. She has had to have some breathing treatments before. No overt history of COPD or asthma however. Timing/Duration: 1 week Severity: moderate Improving Factors: nothing Worsening Factors: nothing Associated Symptoms: cough, loss of appetite, malaise Allergies/Adverse Reactions: Allergies Penicillins Allergy (Severe, Verified 06/28/18 04:11) Anaphylaxis Codeine Allergy (Intermediate, Verified 06/28/18 04:11) Hives Iodine Allergy (Mild, Verified 06/28/18 04:11) Sulfa Drugs Allergy (Mild, Verified 06/28/18 04:11) Sulfa based diabetes medications, but reports she can take sulfa abx. Sulfa based diabetes medciations cause nausea and vomitting. Insulin Detemir [From Levemir] Adverse Reaction (Verified 06/28/18 04:11) Morphine Adverse Reaction (Verified 06/28/18 04:11) Changes personality and makes patient violent. Phenol [From Levemir] Adverse Reaction (Verified 06/28/18 04:11) Home Medications: Ambulatory Orders Lisinopril/Hctz 20-25 mg [Zestoretic 20-25 mg] 1 ea PO DAILY #30 tab 06/19/13 Empagliflozin [Jardiance] 10 mg PO DAILY 08/14/16 Gabapentin 600 mg PO TID 08/14/16 Tramadol HCl [Ultram] 100 mg PO TID PRN 08/14/16 Furosemide 20 mg PO DAILY PRN 04/04/17 Novolog 0 bottle SUBCU PRN PRN 04/04/17 DULoxetine HCL [Cymbalta] 30 mg PO BEDTIME 12/16/17 Metformin HCl [Metformin HCl ER] 500 mg PO BIDFD 12/16/17 Insulin Glargine [Toujeo Solostar] 25 unit SC QAM 02/15/18 Semaglutide [Ozempic] 2 mg SC DAILY 02/15/18 Gijchknxumuoo-Bkdn-Llgwoxgtcs [Fioricet] 1 ea PO Q8H PRN #21 tab 04/19/18 Review of Systems - Review of Systems Constitutional: States: malaise EENTM: States: no symptoms reported Respiratory: States: cough Cardiology: States: no symptoms reported Gastrointestinal/Abdominal: States: abdominal pain, nausea. Denies: diarrhea, vomiting Genitourinary: States: no symptoms reported Musculoskeletal: States: other - generalized body aches Skin: States: no symptoms reported Neurological: States: no symptoms reported Endocrine: States: no symptoms reported All other Systems: No Change from Baseline Past Medical History (General) - Patient Medical History Hx Seizures: No Hx Stroke: No Hx Dementia: No Hx Asthma: No Hx of COPD: No Hx Cardiac Disorders: Yes - cardiac work-up for similar presentation 3 to 4 years ago and in June Hx Congestive Heart Failure: No Hx Pacemaker: No Hx Hypertension: Yes Hx Thyroid Disease: No Hx Diabetes: Yes Hx Gastroesophageal Reflux: Yes Hx Renal Disease: No Hx Cancer: No Hx of HIV: No Hx Hepatitis C: No Hx MRSA: No Surgical History: cholecystectomy - Vaccination History Hx Tetanus, Diphtheria Vaccination: No Hx Influenza Vaccination: No Hx Pneumococcal Vaccination: No - Social History Hx Tobacco Use: No Hx Chewing Tobacco Use: No Hx Alcohol Use: Yes - very rarely Hx Substance Use: No Hx Substance Use Treatment: No Hx Depression: Yes Hx Physical Abuse: No Hx Emotional Abuse: No Hx Suspected Abuse: No - Female History Patient : No - test negative Family Medical History - Family History Mother Family History: No Known Age (years): 72 Living Status: Still Living Hx Family Asthma: No Hx Family Congestive Heart Failure: No Hx Family Hypertension: Yes Hx Family Stroke: Yes - TIA Hx Cardiac Disease: No Hx Family Diabetes: No Hx Family Cancer: No Physical Exam - Physical Exam General Appearance: Alert, Anxious, No apparent distress Eye Exam: bilateral normal Ears, Nose, Throat: hearing grossly normal, normal ENT inspection, normal pharynx Neck: full range of motion, supple Respiratory: no respiratory distress, no accessory muscle use, rhonchi Cardiovascular/Chest: normal peripheral pulses, no edema, tachycardia Peripheral Pulses: radial,right: 2+, radial,left: 2+, dorsalis pedis,right: 2+, dorsalis pedis,left: 2+ Gastrointestinal/Abdominal: soft, other - mild diffuse discomfort but no palpable mass and no rebound. The patient is obese. 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 Comments: Vital Signs - 24 hr 06/28/18 06/28/18 03:50 04:21 Temperature 99.0 F Pulse Rate [ 119 H 114 H monitor] Respiratory 20 20 Rate Blood Pressure 170/113 168/101 [Left Arm] O2 Sat by Pulse 96 96 Oximetry please note one of the blood pressures taken with systolic blood pressures above 200 is due to the patient laying on the cuff. Progress - Progress Progress: 06/28/18 05:15 the patient is a 48-year-old female presented to the emergency room with what appears to be a mild acute bronchitis. She is given a dose of azithromycin here and breathing treatment. She will likely require some further breathing treatments and further diagnoses. This may be viral however azithromycin should cover atypical bacteria nicely. She is in no respiratory distress. More significantly the patient is significantly hyperglycemic and hyponatremic. These do likely go hand in hand however the hyponatremia may be made worse by the hydrochlorothiazide and jardiance. The patient is receiving a liter of normal saline and will be followed by 160 cc of 3% saline over 4 hours for help in correction of the hyponatremia and hyperglycemia. This will likely help her significant body aches. The patient is alert and oriented. She did receive insulin lispro here in the emergency room and will need another glucose check in 2-3 hours from now to make sure it is significantly improving. She will likely no doubt require further correction at that time. The patient reports an allergy to Levemir which is the long-acting insulin that we have here. Her primary care doctor may need to be contacted tomorrow to develop an alternative plan for diabetes management as she appears to be unable to afford the co-pays on the current medicines. Admitted for correction of the above issues. Urinalysis is pending. We will check for significant ketones in that. There does not appear to be a significant anion gap on the initial blood work. That may need to be rechecked. additionally the patient does have some moderate hypertension. For now she is being given a dose of by mouth clonidine. This is likely due to some anxiety as well as discomfort as well as chronic hypertension. Again the hydrochlorothiazide may be contributing to the hyponatremia above. Admit for continued care. - Results/Orders Results/Orders: chest x-ray showed no evidence of mass or pneumonia. Laboratory Results - last 24 hr 06/28/18 06/28/18 06/28/18 04:08 04:08 04:09 WBC 11.7 H RBC 5.07 Hgb 15.2 Hct 45.2 MCV 89.2 MCH 29.9 MCHC 33.6 RDW 12.4 Plt Count 281 MPV 8.5 Absolute Neuts (auto) 8.20 H Absolute Lymphs (auto) 2.10 Absolute Monos (auto) 0.80 Absolute Eos (auto) 0.50 H Absolute Basos (auto) 0.10 Neutrophils % 69.7 Lymphocytes % 17.7 L Monocytes % 7.0 Eosinophils % 4.4 Basophils % 1.2 Sodium 129 L Potassium 3.7 Chloride 96 L Carbon Dioxide 21 Anion Gap 15.7 BUN 17 Creatinine 0.55 L BUN/Creatinine Ratio 30.9 H POC Glucose > 400 H* Random Glucose 508 H* Serum Osmolality 283.6 Calcium 9.2 06/28/18 04:22 WBC RBC Hgb Hct MCV MCH MCHC RDW Plt Count MPV Absolute Neuts (auto) Absolute Lymphs (auto) Absolute Monos (auto) Absolute Eos (auto) Absolute Basos (auto) Neutrophils % Lymphocytes % Monocytes % Eosinophils % Basophils % Sodium Potassium Chloride Carbon Dioxide Anion Gap BUN Creatinine BUN/Creatinine Ratio POC Glucose Random Glucose Cancelled Serum Osmolality Calcium Departure - Departure Clinical Impression: Uncontrolled hypertension, Hyponatremia Hyperglycemia due to type 2 diabetes mellitus Qualifiers: Diabetes mellitus group 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 Copy, Patient Portal Self Enrollment Referrals: Estuardo Baptiste MD [Primary Care Provider] - 1-2 Weeks Home Medications: Ambulatory Orders Lisinopril/Hctz 20-25 mg [Zestoretic 20-25 mg] 1 ea PO DAILY #30 tab 06/19/13 Empagliflozin [Jardiance] 10 mg PO DAILY 08/14/16 Gabapentin 600 mg PO TID 08/14/16 Tramadol HCl [Ultram] 100 mg PO TID PRN 08/14/16 Furosemide 20 mg PO DAILY PRN 04/04/17 Novolog 0 bottle SUBCU PRN PRN 04/04/17 DULoxetine HCL [Cymbalta] 30 mg PO BEDTIME 12/16/17 Metformin HCl [Metformin HCl ER] 500 mg PO BIDFD 12/16/17 Insulin Glargine [Toujeo Solostar] 25 unit SC QAM 02/15/18 Semaglutide [Ozempic] 2 mg SC DAILY 02/15/18 Wezlcthzlufbh-Ouvt-Toykykdrvo [Fioricet] 1 ea PO Q8H PRN #21 tab 04/19/18 Decision To Admit - Decistion To Admit Decision to Admit Reason: Medical Nature Decision to Admit Date: 06/28/18 Decision to Admit Time: 05:21
--- NOTE | 2018-06-28 05:40 | HP ---
SUPERVISING PHYSICIAN: Brigido Crane M.D. CHIEF COMPLAINT: High glucose. HISTORY OF PRESENT ILLNESS: Ms. Gupta is a 48 year-old female patient that presented to the Emergency Department this morning complaining of some shortness of breath, some mild abdominal pain and uncontrolled blood sugars. She noted that she is a type 2 diabetic and she has been on DFD-1 inhibitor and some long and short term acting insulin, but for the last couple of weeks has been unable to check her blood sugar due to glucometer malfunction and apparently has been out of all of her medications due to financial constraints. She did present without any high grade fever. No respiratory distress but did have a mildly productive cough. Her initial laboratory studies showed that her blood sugar was 508, sodium 129 corrected to 135, potassium 3.7, BUN 17, creatinine 0.59, anion gap was normal. Hematology showed a mild leukocytosis of 11,700 with a left shift. Urinalysis showed 100 protein, greater than 1,000 glucose with trace amount of blood lysed and microscopic just revealed 1+ budding yeast with 2+ bacteria. Chest x-ray, two view chest, per radiology interpretation was without any acute findings. She was given a breathing treatment and started on some 3% hypertonic saline for the hyponatremia and is now going to be admitted for uncontrolled hyperglycemia and upper respiratory infection to include bronchitis with concerns for developing community acquired pneumonia. PAST MEDICAL HISTORY: 1. Type 2 diabetes mellitus both on oral and insulin therapy. 2. Charcot foot on the left with complications from surgery requiring hospitalization for cellulitis in March 2017. 3. Hypertension. 4. Diabetic neuropathy. 5. Retinopathy. 6. Anxiety disorder. PAST SURGICAL HISTORY: 1. Left foot surgery times 2 for Charcot foot. 2. Right knee arthroscopy times 2. 3. Right shoulder rotator cuff repair. 4. Lasik surgery bilateral. 5. Bilateral cataract removal. 6. Cholecystectomy. CURRENT MEDICATIONS: 1. Cymbalta 30 mg at bedtime. 2. Lasix 20 mg daily as needed. 3. Jardiance 10 mg daily. 4. Toujeo Solostar 25 units subcue daily. 5. Gabapentin 600 mg t.i.d. 6. Zestoretic 20-25 mg 1 daily. 7. Metformin extended release 500 mg b.i.d. 8. NovoLog sliding scale. 9. Ozempic 2 mg daily. 10. Ultram 100 mg t.i.d. as needed. ALLERGIES: PENICILLINS, CODEINE, IODINE, SULFA DRUGS, DALVANCE, LEVEMIR, MORPHINE AND PHENOL FROM LEVEMIR. FAMILY HISTORY: Positive for heart disease, diabetes and Alzheimer's. SOCIAL HISTORY: The patient lives in [place]. She has 1 son. She is not employed currently. She is . She denies any alcohol, illicit drug use or tobacco usage. REVIEW OF SYSTEMS: CONSTITUTIONAL: Positive for fatigue. Negative for fever or chills. No unintentional weight loss. HEENT: Negative for any sinus symptoms, ear aches, sore throat. RESPIRATORY: Positive for cough and wheezing. Negative for congestion. Positive for mild shortness of breath. CARDIOVASCULAR: Denies any chest pain, palpitations, tachycardia or syncopal episodes. GASTROINTESTINAL: Positive for abdominal pains but no guarding or rebound tenderness. Negative for nausea, vomiting, diarrhea or constipation. GENITOURINARY: Denies any hematuria or dysuria, but does have some polyuria. NEUROLOGIC: Negative for weakness, dizziness, seizures or ataxia. PHYSICAL EXAMINATION: VITAL SIGNS: Temperature 98.7, pulse 110, blood pressure 167/150, respirations 20, satting 95% on room air. Admission weight 100.8 kg. GENERAL: The patient is resting comfortably. Appears to be in no acute distress. HEENT: Tympanic membranes are clear bilaterally. Oropharynx is pink with dry mucosal membranes. No lesions. NECK: Supple, non-tender. Full range of motion. No jugular venous distention. CHEST: Lungs are notable for some mild inspiratory and expiratory wheezing and diminished bilaterally but no rales or rhonchi. CARDIOVASCULAR: Regular rate and rhythm without appreciable murmurs, gallops, or rubs. ABDOMEN: Soft, mildly diffuse tenderness on palpation. No rebound tenderness or point tenderness. No peritoneal signs. Bowel sounds were positive. EXTREMITIES: Without any edema. NEUROLOGIC: She is alert and oriented times three. LABORATORY: White count shows to be 11,700, hemoglobin 15.2, hematocrit 45.2, platelet count 281,000. Differential does show a left shift. Chemistry showed initial blood sugar of 508, sodium 129 corrected from sugar to 135, potassium was initially 3.7, carbon dioxide 21, anion gap 50, BUN 17, creatinine 0.5, calcium 9.3. Urinalysis showed 100 protein, greater than 1,000 glucose, trace of lysed blood. Microscopic revealed 1+ budding yeast, 2+ bacteria. RBCs were less than 3, WBCs 0 to 1, 1 to 3 epithelials. RADIOLOGY: Chest x-ray, two view chest, showed no active disease per radiology interpretation. ASSESSMENT: 1. Hyperglycemia, poorly controlled type 2 diabetes mellitus. 2. Uncontrolled hypertension due to poor medical compliance with medication. 3. Acute bronchitis with concerns for developing community acquired pneumonia. 4. History of diabetic peripheral neuropathy due to poorly controlled diabetes. PLAN: The patient is going to be admitted for ongoing therapy in regards to hyperglycemia and developing bronchitis. She was started on IV fluids with 3% hypertonic saline initially and this was discontinued on admission to the Medical/Surgical floor and she was started on normal saline with 20 of potassium at 250. I will go ahead and give her an additional 2 liters of fluid as she is dry. Will resume her home medications once those have been updated and verified. She will be on insulin sliding scale per protocol. Will start her on an ADA 1800 calorie diet. Will anticipate her length of stay to be at least 2 to 3 days. Once she is able to transition to outpatient management will have to work with her to secure her outpatient management and medication that she had not been taking prior to hospitalization, including her insulin. Until then will continue to monitor and treat as needed. #[id number] [facility]
[2018-06-28] MEDS ORDERED: ALBUTEROL SULFATE 2.5 MG/3 ML VIAL NEB PRN (06:08)
[2018-06-28] MEDS ORDERED: SODIUM CHLORIDE 0.9% (FLUSH) 10 ML SYG IV PRN (06:08)
[2018-06-28] MEDS ORDERED: ONDANSETRON INJ 4 MG/2 ML VIAL IV PRN (06:08)
[2018-06-28] MEDS ORDERED: DEXTROSE 50% 25 GM/50 ML SYG IV PRN (06:11)
[2018-06-28] MEDS ORDERED: GLUCAGON INJ 1 MG VIAL SUBCU PRN (06:11)
[2018-06-28] MEDS ORDERED: IV SET AND CAP CHANGE INJ INJ SCH (06:30)
[2018-06-28] MEDS: KCL 20 MEQ/NS 1,000 ML IVS PRN ×4 (06:39→22:37)
[2018-06-28] MEDS: PANTOPRAZOLE SODIUM IV 40 MG VIAL IV SCH (06:39)
[2018-06-28] MEDS: SODIUM CHLORIDE 0.9% (FLUSH) 10 ML SYG IV SCH ×2 (08:16→21:03)
[2018-06-28] MEDS ORDERED: SODIUM CHLORIDE 0.9% 1000ML 1,000 ML ONE (08:26)
[2018-06-28] MEDS ORDERED: INSULIN LISPRO 100 UNITS/ML PEN SUBCU SCH (12:00)
[2018-06-28] MEDS: INSULIN LISPRO 100 UNITS/ML PEN SUBCU SCH ×3 (12:19→21:00)
[2018-06-28] MEDS ORDERED: metFORMIN XR 500 MG TAB.ER.24 PO ONE (14:36)
[2018-06-28] MEDS: GABAPENTIN 300 MG CAP PO SCH ×2 (15:21→21:02)
[2018-06-28] MEDS: metFORMIN XR 500 MG TAB.ER.24 PO SCH (16:41)
[2018-06-28] MEDS ORDERED: FLUCONAZOLE 150 MG TAB PO ONE (17:13)
[2018-06-28] MEDS ORDERED: KCL 20 MEQ/NS 1,000 ML IVS ONE ×3 (17:16→22:31)
[2018-06-28] MEDS: IPRATROPIUM/ALBUTEROL 3 ML VIAL NEB SCH ×2 (19:51→19:52)
[2018-06-28] MEDS: BENZONATATE PERLES 100 MG CAP PO SCH (21:02)
[2018-06-28] MEDS: DULoxetine HCL 30 MG CAP PO SCH (21:02)
[2018-06-28] MEDS ORDERED: LISINOPRIL 10 MG TAB PO ONE (23:16)
[2018-06-28] MEDS: KCL 20MEQ/0.45% NS 1,000 ML IVS PRN (23:34)
[2018-06-28] MEDS: guaiFENesin ER TAB 600 MG TAB PO SCH (23:48)
[2018-06-28] MEDS: guaiFENesin/DEXTROMETH SYRUP 5 ML UD PO PRN (23:49)
[2018-06-29] MEDS: BENZOCAINE-MENTH LOZ (CEPACOL) 1 EA LOZ MT PRN ×2 (02:11→20:59)
[2018-06-29] MEDS: PANTOPRAZOLE SODIUM IV 40 MG VIAL IV SCH (06:14)
[2018-06-29] MEDS: INSULIN LISPRO 100 UNITS/ML PEN SUBCU SCH ×7 (07:40→21:03)
[2018-06-29] MEDS: metFORMIN XR 500 MG TAB.ER.24 PO SCH ×2 (07:43→17:16)
[2018-06-29] MEDS: IPRATROPIUM/ALBUTEROL 3 ML VIAL NEB SCH ×2 (07:45→11:20)
[2018-06-29] MEDS: KCL 20MEQ/0.45% NS 1,000 ML IVS PRN ×2 (08:04→21:08)
[2018-06-29] MEDS: guaiFENesin ER TAB 600 MG TAB PO SCH ×2 (08:23→20:57)
[2018-06-29] MEDS: BENZONATATE PERLES 100 MG CAP PO SCH ×3 (08:23→20:57)
[2018-06-29] MEDS: GABAPENTIN 300 MG CAP PO SCH ×3 (08:23→20:57)
[2018-06-29] MEDS: SODIUM CHLORIDE 0.9% (FLUSH) 10 ML SYG IV SCH ×2 (08:24→21:10)
[2018-06-29] MEDS: LISINOPRIL 10 MG TAB PO SCH (08:24)
[2018-06-29] MEDS: ACETAMINOPHEN 325 MG TAB PO PRN ×2 (08:27→17:31)
[2018-06-29] MEDS ORDERED: MAGNESIUM SULFATE PREMIX 2GM 2 GM in PREMIX BAG 1 BAG IVPB ONE (12:52)
[2018-06-29] MEDS ORDERED: cefTRIAXone SODIUM 1 GM in SODIUM CHL 0.9% 50ML MIN-BAG+ 50 ML IVPB SCH (13:00)
[2018-06-29] MEDS ORDERED: MAGNESIUM SULFATE PREMIX 2GM 50 ML IVPB ONE (13:10)
[2018-06-29] MEDS ORDERED: SODIUM CHL 0.9% 50ML MIN-BAG+ 50 ML IVPB ONE (13:10)
[2018-06-29] MEDS ORDERED: cefTRIAXone SODIUM 1 GM VIAL ONE (13:11)
[2018-06-29] MEDS: INSULIN GLARGINE 25 UNIT SC SCH (13:29)
[2018-06-29] MEDS ORDERED: AZITHROMYCIN IV 500 MG in SODIUM CHLORIDE 0.9% 250ML 250 ML IVPB SCH (14:00)
[2018-06-29] MEDS: BUDESONIDE NEBS 0.5 MG/2 ML VIAL NEB SCH ×2 (14:16→20:55)
[2018-06-29] MEDS ORDERED: AZITHROMYCIN IV 500 MG VIAL IVPB ONE (14:21)
[2018-06-29] MEDS ORDERED: SODIUM CHLORIDE 0.9% 250ML 250 ML ONE (14:21)
[2018-06-29] MEDS ORDERED: METOPROLOL TARTRATE 25 MG TAB ONE (14:21)
[2018-06-29] MEDS: LEVALBUTEROL NEBS 1.25 MG/3 ML VIAL NEB SCH ×2 (16:20→20:55)
[2018-06-29] MEDS: METOPROLOL TARTRATE 25 MG TAB PO SCH (17:16)
--- NOTE | 2018-06-29 20:40 | PN ---
DATE: 06/29/18 SUPERVISING PHYSICIAN: Brigido Crane M.D. SUBJECTIVE: The patient notes that she is feeling a little bit better today but she still continues with a significant amount of coughing and some shortness of breath. She is notably tachycardic still and she is still having some fairly elevated blood sugars. She has had no nausea or vomiting or abdominal pains. OBJECTIVE: VITAL SIGNS: Temperature 98, pulse 108, blood pressure 168/99, respirations 18, satting 92% on room air at rest. Weight is 105.8 kg. GENERAL: The patient is resting comfortably. She is in no acute distress. She is alert. CHEST: Lung sounds are diminished bilaterally with some just very mild inspiratory and expiratory wheezing. No rhonchi or rales. HEART: Regular rate and rhythm but showing to be tachycardic at a rate of about 108 to 118. ABDOMEN: Soft, non-tender. Positive bowel sounds. EXTREMITIES: Without any edema. NEUROLOGIC: She was alert and oriented times three. LABORATORY: CBC continues to show leukocytosis of 11,700, hemoglobin 13.8, hematocrit 41.7, platelet count 258,000. Differential shows continued left shift. Chemistries show an improved sodium at 138 with potassium 4.0, CO2 is still low at 20 but BUN is 9, creatinine 0.43. Blood sugars remain elevated between 218 and 312. Calcium 8.1, magnesium 1.6. Liver functions showing to be within normal limits. MICROBIOLOGY: No cultures pending. RADIOLOGY: No additional radiographic studies today. ASSESSMENT: 1. Hyperglycemia, poorly controlled type 2 diabetes mellitus, continues to show elevated blood sugars despite more aggressive management. 2. Uncontrolled hypertension due to poor medical compliance with medication. Requires the addition of Metoprolol in efforts to better control blood pressure. 3. Acute bronchitis with concerns for developing community acquired pneumonia bilaterally with initiation of antibiotics, inhaled steroids and bronchial hygiene. 4. History of diabetic peripheral neuropathy due to poorly controlled diabetes. 5. Electrolyte imbalance to include hypomagnesemia with ongoing parenteral replacement. PLAN: She still continues to be hypertensive today. Will go ahead and start her on some beta michela and see if this will control her heart rate as well as improve her blood pressure. I have initiated a full course of antibiotics to cover for the concerning developing pneumonia with Rocephin and azithromycin. She is not able to tolerate Albuterol or DuoNeb, so we changed her to Xopenex treatments q.i.d. Will go ahead and replace her magnesium. I have now gotten hold of her [place]. Will go ahead and start her on that today, but continue with additional insulin sliding scale and see if we get her better controlled with blood sugars. I have increased the fluid rate to anticipation of saline locking tomorrow if she is having good oral intake and I's and O's are showing good balance. Hopefully be able to transition her to outpatient management within the next 24 to 48 hours. Until then will continue to monitor and treat as needed. #[id number] [facility]
[2018-06-29] MEDS: DULoxetine HCL 30 MG CAP PO SCH (20:57)
[2018-06-29] MEDS: guaiFENesin/DEXTROMETH SYRUP 5 ML UD PO PRN (20:59)
[2018-06-30] MEDS: ACETAMINOPHEN 325 MG TAB PO PRN ×2 (02:00→10:52)
[2018-06-30] MEDS: KCL 20MEQ/0.45% NS 1,000 ML IVS PRN (05:54)
[2018-06-30] MEDS: PANTOPRAZOLE SODIUM IV 40 MG VIAL IV SCH (06:11)
--- NOTE | 2018-06-30 07:27 | RAD ---
Study: Frontal and Lateral Radiographs of the Chest. Indication: SOB Comparison: June 28, 2018 Impression: Cardiomegaly with slightly progressed mild interstitial edema. Mild basilar atelectasis. No pleural effusion or pneumothorax. Degenerative changes of the spine noted. Electronically signed by: Sukhjinder Lafleur MD 06/30/2018 7:24 AM CDT
[2018-06-30] MEDS: INSULIN LISPRO 100 UNITS/ML PEN SUBCU SCH ×2 (07:41→07:42)
[2018-06-30] MEDS: METOPROLOL TARTRATE 25 MG TAB PO SCH (07:45)
[2018-06-30] MEDS: metFORMIN XR 500 MG TAB.ER.24 PO SCH (07:45)
[2018-06-30] MEDS: GABAPENTIN 300 MG CAP PO SCH (08:31)
[2018-06-30] MEDS: LISINOPRIL 10 MG TAB PO SCH (08:31)
[2018-06-30] MEDS: guaiFENesin ER TAB 600 MG TAB PO SCH (08:32)
[2018-06-30] MEDS: BENZONATATE PERLES 100 MG CAP PO SCH (08:32)
[2018-06-30] MEDS: BUDESONIDE NEBS 0.5 MG/2 ML VIAL NEB SCH (08:34)
[2018-06-30] MEDS: INSULIN GLARGINE 25 UNIT SC SCH (08:34)
[2018-06-30] MEDS: SODIUM CHLORIDE 0.9% (FLUSH) 10 ML SYG IV SCH (08:34)
[2018-06-30] MEDS: LEVALBUTEROL NEBS 1.25 MG/3 ML VIAL NEB SCH ×2 (08:34→11:46)
[2018-06-30] MEDS ORDERED: MAGNESIUM SULFATE PREMIX 2GM 2 GM in PREMIX BAG 1 BAG IVPB ONE (08:45)
[2018-06-30] MEDS ORDERED: MAGNESIUM SULFATE PREMIX 2GM 50 ML IVPB ONE (08:59)
[2018-06-30] MEDS ORDERED: hydroCHLOROthiazide 25 MG TAB PO SCH (09:00)
[2018-06-30 09:55] VITALS: BP 163/97; TEMP 99.9; O2SAT 92
[2018-06-30] MEDS ORDERED: ENOXAPARIN SODIUM 40 MG/0.4 ML SYG SUBCU SCH (23:00)
--- NOTE | 2018-07-05 14:38 | DS ---
SUPERVISING PHYSICIAN: Brigido Crane MD ADMISSION DIAGNOSIS: 1. Hyperglycemia, poorly controlled type 2 diabetes mellitus. 2. Uncontrolled hypertension due to poor medical compliance with medication. 3. Acute bronchitis with concerns for developing community acquired pneumonia. 4. History of diabetic peripheral neuropathy due to poorly controlled diabetes. DISCHARGE DIAGNOSIS: 1. Hyperglycemia, poorly controlled type 2 diabetes mellitus, showing improvement with more aggressive management. 2. Uncontrolled hypertension secondary to poor medical compliance, but improving with metoprolol. 3. Acute bronchitis with concerns for developing community acquired pneumonia, improving with initiation of antibiotics, inhaled steroids and aggressive pulmonary hygiene. 4. History of diabetic peripheral neuropathy due to poorly controlled diabetes. 5. Electrolyte imbalance to include hypomagnesemia, improved with parenteral replacement. REASON FOR HOSPITALIZATION: Ms. Gupta is a 48 year-old female patient that presented to the Emergency Department this morning complaining of some shortness of breath, some mild abdominal pain and uncontrolled blood sugars. She noted that she is a type 2 diabetic and she has been on DFD-1 inhibitor and some long and short term acting insulin, but for the last couple of weeks has been unable to check her blood sugar due to glucometer malfunction and apparently has been out of all of her medications due to financial constraints. She did present without any high grade fever. No respiratory distress but did have a mildly productive cough. Her initial laboratory studies showed that her blood sugar was 508, sodium 129 corrected to 135, potassium 3.7, BUN 17, creatinine 0.59, anion gap was normal. Hematology showed a mild leukocytosis of 11,700 with a left shift. Urinalysis showed 100 protein, greater than 1,000 glucose with trace amount of blood lysed and microscopic just revealed 1+ budding yeast with 2+ bacteria. Chest x-ray, two view chest, per radiology interpretation was without any acute findings. She was given a breathing treatment and started on some 3% hypertonic saline for the hyponatremia and is now going to be admitted for uncontrolled hyperglycemia and upper respiratory infection to include bronchitis with concerns for developing community acquired pneumonia. LABORATORY: White count on admission was 11,700, hemoglobin 15.2, hematocrit 45.2, platelet count 281,000, differential was without a left shift. Prior to discharge, WBCs had normalized to 7,300 with stable hematocrit at 14.1 and hematocrit 42.2, platelet count 108,000, differential without a left shift. Chemistries on admission showed sodium 129, BUN 37, glucose 508 and correcting for the hyperglycemia, sodium was 135, potassium 3.7. Prior to discharge, electrolytes had normalized with fluids. Blood sugars still remained elevated ranging between 209 and greater than 400. Magnesium was 1.7 at discharge. Liver functions were all within normal limits. Urinalysis showed 100 protein, greater than 1000 glucose, trace lysed blood and microscopic exam revealed 2+ bacteria, 1+ budding yeast. MICROBIOLOGY: There were no microbiologic specimens submitted. RADIOLOGY: Chest x-ray on admission per radiologic interpretation showed no active disease. Final chest x-ray prior to discharge showed cardiomegaly, slightly progressed, mild interstitial edema with mild basilar atelectasis, no pleural effusion or pneumothorax. HOSPITAL COURSE: Ms. Gupta was admitted for hyperglycemia and concerns for community acquired pneumonia. She was started on aggressive treatment with IV fluids, parenteral antibiotic and aggressive pulmonary hygiene. She showed good response and on day of discharge was showing clinically improved well enough to continue with outpatient management. PLAN: Ms. Gupta was discharged on 06/30/18 with instructions to followup with her primary care provider, Dr. Estuardo Baptiste, on 07/05/18. She was to resume her home medications as instructions. She was to encourage fluids to prevent dehydration. She was told to check her blood sugars before each and meal and at bedtime and take insulin per sliding scale. She was instructed to return to the hospital for any worsening of her symptoms. Diet at discharge was diabetic diet as tolerated. Activity to increase as tolerated. MEDICATIONS PRESCRIBED AT DISCHARGE: 1. Albuterol inhaler 1 q.4h. as needed, #1 inhaler. 2. Azithromycin 500 mg daily, #3, no refills. 3. Jardiance 10 mg daily, #30, no refills. 4. Lasix 20 mg daily, #30, no refills. 5. Hydrochlorothiazide 12.5 mg tablets to take 2 tablets daily, #60, no refills. 6. NovoLog Pen sliding scale as directed. 7. Toujeo SoloStar 25 units subcutaneously daily, #1 pen, no refills. 8. Prinivil 10 mg tablets to take 2 tablets daily, #60, no refills. 9. Metformin 500 mg twice daily with food, #60, no refills. 10. Ozempic 2 mg subcutaneously daily, #1 pen, no refills. CONDITION AT DISCHARGE: Stable and improving. DISPOSITION: The patient was discharged to care of family members. #[id number] [facility]
== END 2018-06-30 12:30 | disposition home or self-care (01) | DRG 637 ==
LOC: ER 03:49 → MS 05:39 → OBSVTOIN 05:39
PROVIDERS: ADMIT Nurse Practitioner Family; ATTEND Nurse Practitioner Family
DX: E11.65 Type 2 diabetes mellitus with hyperglycemia (principal); J18.9 Pneumonia, unspecified organism; E87.1 Hypo-osmolality and hyponatremia; I10 Essential (primary) hypertension; Z91.14 Patient's other noncompliance with medication regimen; J20.9 Acute bronchitis, unspecified; E11.51 Type 2 diabetes mellitus with diabetic peripheral angiopathy without gangrene; E83.42 Hypomagnesemia; F41.9 Anxiety disorder, unspecified; T38.3X6A Underdosing of insulin and oral hypoglycemic [antidiabetic] drugs, initial encounter; T46.4X6A Underdosing of angiotensin-converting-enzyme inhibitors, initial encounter; Z91.120 Patient's intentional underdosing of medication regimen due to financial hardship; Y92.009 Unspecified place in unspecified non-institutional (private) residence as the place of occurrence of the external cause; Z88.0 Allergy status to penicillin; Z88.2 Allergy status to sulfonamides; Z88.5 Allergy status to narcotic agent; Z88.8 Allergy status to other drugs, medicaments and biological substances; Z91.048 Other nonmedicinal substance allergy status; Z79.4 Long term (current) use of insulin; Z79.899 Other long term (current) drug therapy

== ENCOUNTER 2018-09-17 19:31 | Emergency (ER) | payer BC ==
[2018-09-17] MEDS ORDERED: SODIUM CHLORIDE 0.9% 1000ML 1,000 ML ONE (20:20)
[2018-09-17] MEDS ORDERED: VANCOMYCIN HCL INJ 1,000 MG, VANCOMYCIN HCL INJ 500 MG in SODIUM CHLORIDE 0.9% 250ML 25... IVPB ONE (21:21)
--- NOTE | 2018-09-17 21:57 | ED.PDOC ---
History of Present Illness - General Chief Complaint: Skin/Abrasion/Tear Stated Complaint: Foot swelling with pain Time Seen by Provider: 09/17/18 21:20 Source: patient Exam Limitations: no limitations - History of Present Illness Initial Comments: PT PRESENTS TO THE ED WITH COMPLAINT OF LEFT FOOT SWELLING AND REDNESS FOR THE PAST 3 DAY. PT REPORTS BEING STARTED ON DOXYCYCLINE BY PCP 2 DAYS AGO AND NOW STATES THAT REDNESS AND SWELLING HAS GOTTEN WORSE DESPITE ANTIBIOTICS. PT HAS A HISTORY OF CHARCOT FOOT WITH FREQUENT EPISODES OF CELLULITS AND HAS HAD EXTENSIVE SURGERY ON HER FOOT IN THE PAST. Timing/Duration: constant, getting worse Severity: severe Improving Factors: immobilization Worsening Factors: movement Associated Symptoms: denies symptoms Allergies/Adverse Reactions: Allergies Penicillins Allergy (Severe, Verified 06/28/18 04:11) Anaphylaxis Codeine Allergy (Intermediate, Verified 06/28/18 04:11) Hives Iodine Allergy (Mild, Verified 06/28/18 04:11) Sulfa Drugs Allergy (Mild, Verified 06/28/18 04:11) Sulfa based diabetes medications, but reports she can take sulfa abx. Sulfa based diabetes medciations cause nausea and vomitting. Dalbavancin [From Dalvance] Adverse Reaction (Verified 06/28/18 07:11) Insulin Detemir [From Levemir] Adverse Reaction (Verified 06/28/18 04:11) Morphine Adverse Reaction (Verified 06/28/18 04:11) Changes personality and makes patient violent. Phenol [From Levemir] Adverse Reaction (Verified 06/28/18 04:11) Home Medications: Ambulatory Orders Gabapentin 600 mg PO TID 08/14/16 Tramadol HCl [Ultram] 100 mg PO TID PRN 08/14/16 DULoxetine HCL [Cymbalta] 30 mg PO BEDTIME 12/16/17 Albuterol Inhaler [Ventolin Hfa Inhaler] 1 puff INH Q4HR PRN #1 inh 06/30/18 Azithromycin 500 mg PO DAILY #3 tab 06/30/18 Empagliflozin [Jardiance] 10 mg PO DAILY #30 tab 06/30/18 Furosemide 20 mg PO DAILY PRN #30 tab 06/30/18 Hydrochlorothiazide 25 mg PO DAILY #60 tab 06/30/18 Insulin Aspart [Novolog Flexpen] 100 unit SC TID PRN #10 ml 06/30/18 Insulin Glargine [Toujeo Solostar] 25 unit SC QAM #1 inj 06/30/18 Lisinopril [Prinivil] 20 mg PO DAILY #60 tab 06/30/18 Metformin HCl [Metformin Hydrochloride E] 500 mg PO BIDFD #60 tab 06/30/18 Semaglutide [Ozempic] 2 mg SC DAILY #1 inj 06/30/18 Review of Systems - Review of Systems Constitutional: Denies: chills, fever EENTM: Denies: nose congestion, throat swelling Respiratory: Denies: cough, short of breath Cardiology: Denies: chest pain, palpitations Gastrointestinal/Abdominal: Denies: nausea, vomiting Genitourinary: Denies: dysuria, frequency Musculoskeletal: States: see HPI, joint pain, joint swelling Skin: States: see HPI, change in color, lumps Neurological: States: no symptoms reported Endocrine: States: no symptoms reported Past Medical History (General) - Patient Medical History Hx Seizures: No Hx Stroke: No Hx Dementia: No Hx Asthma: No Hx of COPD: No Hx Cardiac Disorders: Yes - cardiac work-up for similar presentation 3 to 4 years ago and in June Hx Congestive Heart Failure: No Hx Pacemaker: No Hx Hypertension: Yes Hx Thyroid Disease: No Hx Diabetes: Yes Hx Gastroesophageal Reflux: Yes Hx Renal Disease: No Hx Cancer: No Hx of HIV: No Hx Hepatitis C: No Hx MRSA: No - Vaccination History Hx Tetanus, Diphtheria Vaccination: Yes Hx Influenza Vaccination: Yes Hx Pneumococcal Vaccination: Yes Immunizations Up to Date: Yes - Social History Hx Tobacco Use: No Hx Chewing Tobacco Use: No Hx Alcohol Use: No Hx Substance Use: No Hx Substance Use Treatment: No Hx Depression: No Hx Physical Abuse: No Hx Emotional Abuse: No Hx Suspected Abuse: No - Female History Patient is a Female of Child Bearing Age (10 -59 yrs old): Yes Patient : No Family Medical History - Family History Mother Family History: No Known Age (years): 72 Living Status: Still Living Hx Family Asthma: No Hx Family Congestive Heart Failure: No Hx Family Hypertension: Yes Hx Family Stroke: Yes - TIA Hx Cardiac Disease: No Hx Family Diabetes: No Hx Family Cancer: No Physical Exam - Physical Exam General Appearance: Alert, No apparent distress, Well Developed, Well Groomed, Well Hydrated Ears, Nose, Throat: hearing grossly normal Neck: normal inspection Respiratory: no respiratory distress Cardiovascular/Chest: regular rate, rhythm, no murmur Extremity: deformity - CHRONIC, inflammation - SIGNIFICANT ERYTHEMA NOTED, pedal edema, swelling, other - FLUCTUANT MASS TO THE MEDIAL ASPECT OF THE 1ST METATARSAL REGION Neurologic: alert, normal mood/affect, oriented x 3 Skin Exam: normal color, warm/dry Progress - Progress Progress: 09/17/18 21:45 PT RESTING COMFORTABLY, LABS, DIAGNOSTICS AND PLAN TO TRANSFER DISCUSSED. PT STATES THAT SHE DOES NOT WISH TO GO [facility] IF POSSIBLE. WILL MAKE PLANS TO TRANSFER TO [facility]. - Results/Orders Results/Orders: Laboratory Tests 09/17/18 09/17/18 09/17/18 20:40 20:40 20:40 WBC 13.3 H RBC 4.48 Hgb 13.4 Hct 39.8 MCV 89.0 MCH 30.0 MCHC 33.7 RDW 13.0 Plt Count 330 MPV 8.1 Absolute Neuts (auto) 9.50 H Absolute Lymphs (auto) 2.00 Absolute Monos (auto) 0.70 Absolute Eos (auto) 0.90 H Absolute Basos (auto) 0.10 Neutrophils % 71.6 Lymphocytes % 15.0 L Monocytes % 5.6 Eosinophils % 7.1 H Basophils % 0.7 Sodium 133 L Potassium 4.4 Chloride 99 L Carbon Dioxide 24 Anion Gap 14.4 BUN 14 Creatinine 0.55 L BUN/Creatinine Ratio 25.5 H Random Glucose 294 H Serum Osmolality 277.7 Lactic Acid 0.8 Calcium 9.1 Total Bilirubin 1.1 H AST 12 ALT 15 Alkaline Phosphatase 97 Serum Total Protein 7.9 Albumin 3.3 Globulin 4.6 H Albumin/Globulin Ratio 0.7 L Departure - Departure Clinical Impression: Cellulitis of left foot, Charcot foot due to diabetes mellitus, Poorly controlled diabetes mellitus Time of Disposition: 22:06 Disposition: Transfer to Hospital Condition: Fair Departure Forms: ED Discharge - Pt. Copy, Patient Portal Self Enrollment Referrals: Estuardo Baptiste MD [Primary Care Provider] - 1-2 Weeks Home Medications: Ambulatory Orders Gabapentin 600 mg PO TID 08/14/16 Tramadol HCl [Ultram] 100 mg PO TID PRN 08/14/16 DULoxetine HCL [Cymbalta] 30 mg PO BEDTIME 12/16/17 Albuterol Inhaler [Ventolin Hfa Inhaler] 1 puff INH Q4HR PRN #1 inh 06/30/18 Azithromycin 500 mg PO DAILY #3 tab 06/30/18 Empagliflozin [Jardiance] 10 mg PO DAILY #30 tab 06/30/18 Furosemide 20 mg PO DAILY PRN #30 tab 06/30/18 Hydrochlorothiazide 25 mg PO DAILY #60 tab 06/30/18 Insulin Aspart [Novolog Flexpen] 100 unit SC TID PRN #10 ml 06/30/18 Insulin Glargine [Toujeo Solostar] 25 unit SC QAM #1 inj 06/30/18 Lisinopril [Prinivil] 20 mg PO DAILY #60 tab 06/30/18 Metformin HCl [Metformin Hydrochloride E] 500 mg PO BIDFD #60 tab 06/30/18 Semaglutide [Ozempic] 2 mg SC DAILY #1 inj 06/30/18 Transfer to Outside Facility - Transfer Information Accepting Provider:: DR. 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
[2018-09-17 21:59] VITALS: O2SAT 96
--- NOTE | 2018-09-17 22:01 | RAD ---
3 VIEWS LEFT FOOT RADIOGRAPHIC SERIES. INDICATIONS: Infection. Swelling. Osteomyelitis? COMPARISONS: Compared to the left foot radiograph of April 19, 2018. FINDINGS: New diffuse soft tissue swelling without radiopaque soft tissue foreign bodies or soft tissue gas. Remote third and fourth left metatarsal ORIF. No evidence of osteomyelitis. No fractures or dislocations. Unchanged large calcaneal Achilles tendon and plantar tendon insertion spurs. IMPRESSION: Soft tissue swelling without fracture, radiopaque soft tissue foreign bodies, soft tissue gas or evidence of osteomyelitis. Electronically signed by: Deangelo Luis MD 09/17/2018 9:59 PM CDT
[2018-09-17] MEDS ORDERED: VANCOMYCIN HCL INJ 1,000 MG VIAL IVPB ONE (22:02)
[2018-09-17] MEDS ORDERED: VANCOMYCIN HCL INJ 500 MG VIAL ONE (22:02)
[2018-09-17] MEDS ORDERED: SODIUM CHLORIDE 0.9% 250ML 250 ML ONE (22:02)
[2018-09-17 22:44] VITALS: BP 145/107; TEMP 98.4
== END 2018-09-17 23:00 | disposition short-term general hospital (02) ==
LOC: ER 19:31
DX: L03.116 Cellulitis of left lower limb (principal); E11.610 Type 2 diabetes mellitus with diabetic neuropathic arthropathy; E11.65 Type 2 diabetes mellitus with hyperglycemia; I10 Essential (primary) hypertension; K21.9 Gastro-esophageal reflux disease without esophagitis; Z79.899 Other long term (current) drug therapy; Z98.890 Other specified postprocedural states; Z79.4 Long term (current) use of insulin; Z88.5 Allergy status to narcotic agent; Z88.8 Allergy status to other drugs, medicaments and biological substances; Z88.2 Allergy status to sulfonamides; Z91.041 Radiographic dye allergy status; Z88.0 Allergy status to penicillin
CPT/HCPCS: 36415; 73630; 80053; 83605; 85025; J3370; J7030; J7050

== ENCOUNTER 2019-06-10 17:51 | Inpatient (IN) | payer BC ==
[2019-06-10] MEDS ORDERED: SODIUM CHLORIDE 0.9% 1000ML 1,000 ML IVS ONE (18:51)
[2019-06-10] MEDS ORDERED: MEROPENEM 1 GM in SODIUM CHL 0.9% 50ML MIN-BAG+ 50 ML IVPB ONE (18:52)
[2019-06-10] MEDS ORDERED: ONDANSETRON INJ 4 MG/2 ML VIAL IV ONE (19:00)
--- NOTE | 2019-06-10 19:03 | ED.PDOC ---
History of Present Illness - General Chief Complaint: General Stated Complaint: L hip and L inguinal knot/pain Time Seen by Provider: 06/10/19 18:46 Additional Information: 49 yo F with fever, LLQ and L upper leg pain onset 1-2 days. The patient reports no prior hx of similar pain. Pain is constant worse with touch to the L groin. She states it does not necessarily feel abdominal in nature though her LLQ is mildly sore. She had hx of recurrent left foot surgery and infection and notes she had two ulcers that "busted" in the recent days. The patient is noted to be febrile in the ED. She denies cough, congestion, chest pain, shortness of breath. She has no nausea, vomiting or diarrhea. She is diabetic. Pt recently returned from a trip to [place]. No other reported issues. - History of Present Illness Timing/Duration: constant, getting worse Improving Factors: nothing Worsening Factors: movement Allergies/Adverse Reactions: Allergies Penicillins Allergy (Severe, Verified 06/10/19 19:25) Anaphylaxis Codeine Allergy (Intermediate, Verified 06/10/19 19:25) Hives Iodine Allergy (Mild, Verified 06/10/19 19:25) Sulfa Drugs Allergy (Mild, Verified 06/10/19 19:25) Sulfa based diabetes medications, but reports she can take sulfa abx. Sulfa based diabetes medciations cause nausea and vomitting. Dalbavancin [From Dalvance] Adverse Reaction (Verified 06/10/19 19:25) Insulin Detemir [From Levemir] Adverse Reaction (Verified 06/10/19 19:25) Morphine Adverse Reaction (Verified 06/10/19 19:25) Changes personality and makes patient violent. Phenol [From Levemir] Adverse Reaction (Verified 06/10/19 19:25) Home Medications: Ambulatory Orders RX: Gabapentin 600 mg PO TID 08/14/16 RX: Tramadol HCl [Ultram] 100 mg PO TID PRN 08/14/16 RX: DULoxetine HCL [Cymbalta] 30 mg PO BEDTIME 12/16/17 Insulin Aspart [Novolog Flexpen] 100 unit SC TID PRN #10 ml 06/30/18 RX: Albuterol Inhaler [Ventolin Hfa Inhaler] 1 puff INH Q4HR PRN #1 inh 04/10/19 RX: Azithromycin 500 mg PO DAILY #3 tab 06/30/18 RX: Empagliflozin [Jardiance] 10 mg PO DAILY #30 tab 06/30/18 RX: Furosemide 20 mg PO DAILY PRN #30 tab 06/30/18 RX: Hydrochlorothiazide 25 mg PO DAILY #60 tab 06/30/18 RX: Insulin Glargine [Toujeo Solostar] 25 unit SC QAM #1 inj 06/30/18 RX: Lisinopril [Prinivil] 20 mg PO DAILY #60 tab 06/30/18 RX: Metformin HCl [Metformin Hydrochloride E] 500 mg PO BIDFD #60 tab 06/30/18 Semaglutide [Ozempic] 2 mg SC DAILY #1 inj 06/30/18 Review of Systems - Review of Systems Constitutional: States: fever. Denies: chills EENTM: Denies: ear pain, nose congestion, throat pain Respiratory: Denies: cough, short of breath, wheezing Cardiology: Denies: chest pain, palpitations Gastrointestinal/Abdominal: States: abdominal pain. Denies: diarrhea, nausea, vomiting Genitourinary: Denies: dysuria, frequency, hematuria Musculoskeletal: States: muscle pain. Denies: back pain, neck pain Skin: Denies: change in color, rash Neurological: Denies: numbness, weakness Endocrine: States: no symptoms reported Hematologic/Lymphatic: States: no symptoms reported Past Medical History (General) - Patient Medical History Hx Seizures: No Hx Stroke: No Hx Dementia: No Hx Asthma: No Hx of COPD: No Hx Cardiac Disorders: Yes - cardiac work-up for similar presentation 3 to 4 years ago and in June Hx Congestive Heart Failure: No Hx Pacemaker: No Hx Hypertension: Yes Hx Thyroid Disease: No Hx Diabetes: Yes Hx Gastroesophageal Reflux: Yes Hx Renal Disease: No Hx Cancer: No Hx of HIV: No Hx Hepatitis C: No Hx MRSA: No - Vaccination History Hx Tetanus, Diphtheria Vaccination: Yes Hx Influenza Vaccination: Yes Hx Pneumococcal Vaccination: Yes - Social History Hx Tobacco Use: No Hx Chewing Tobacco Use: No Hx Alcohol Use: No Hx Substance Use: No Hx Substance Use Treatment: No Hx Depression: No Hx Physical Abuse: No Hx Emotional Abuse: No Hx Suspected Abuse: No - Female History Patient : No Family Medical History - Family History Mother Family History: No Known Age (years): 72 Living Status: Still Living Hx Family Asthma: No Hx Family Congestive Heart Failure: No Hx Family Hypertension: Yes Hx Family Stroke: Yes - TIA Hx Cardiac Disease: No Hx Family Diabetes: No Hx Family Cancer: No Physical Exam - Physical Exam General Appearance: Alert, Other - Mild distress due to pain Eye Exam: bilateral normal Ears, Nose, Throat: normal ENT inspection, normal pharynx Neck: non-tender, full range of motion, supple Respiratory: chest non-tender, lungs clear, normal breath sounds, no respiratory distress Cardiovascular/Chest: normal peripheral pulses, regular rate, rhythm, no edema Gastrointestinal/Abdominal: soft, tenderness - Mild LLQ Back Exam: normal inspection, no CVA tenderness, no vertebral tenderness Extremity: normal range of motion, non-tender, no pedal edema, other - No swelling or calf tenderness. Neurologic: no motor/sensory deficits, alert, oriented x 3 Skin Exam: normal color, other - The patient has two diabetic ulcerations to L foot (Great toe pad and lateral aspect). No signficant erythema. No current drainage. Lymphatic: inguinal node tender (L), other - Pt tender to the L groin. No overlying color change. No fluctuance. Progress - Progress Progress: Examination was performed in a mask while the patient was also wearing a mask. Interaction was brief. DDX: Sepsis, gastrointestinal problem, diverticulitis, renal stone, renal failure, abscess, LAD, complication of diabetes, ulceration. 06/10/19 20:26 Pt has L inguinal LAD. Suspect seeded by diabetic ulcers in L foot. Pt febrile and tachycardic, normotensive. Not toxic. No lower respiratory symptoms or CXR findings. 30cc/kg NS ordered, blood cultures, broad spectrum abx and lactic acid. Consult Arline Garrison (Hospitalist). Will admit. Pt updated on plan. 06/10/19 23:38 Indio Rice MD. #[id number] 06/10/19 23:42 - Results/Orders Results/Orders: 06/10/19 18:53 CKISO [CREATINE KINASE ISOENZYMES] Stat 06/10/19 19:45 BLOOD CULTURE Stat 06/10/19 20:31 ED Intent to Admit Routine Laboratory Results - last 24 hr 06/10/19 06/10/19 06/10/19 19:05 19:05 19:05 WBC 20.6 H* RBC 5.10 Hgb 15.3 Hct 44.7 MCV 87.7 MCH 30.0 MCHC 34.2 RDW 12.4 Plt Count 315 MPV 7.8 Absolute Neuts (auto) Not Reportable Absolute Lymphs (auto) Not Reportable Absolute Monos (auto) Not Reportable Absolute Eos (auto) Not Reportable Total Counted Neutrophils % Not Reportable Neutrophils % (Manual) 89.0 H Lymphocytes % Not Reportable Lymphocytes % (Manual) 7.0 Monocytes % Not Reportable Monocytes % (Manual) 3.0 Eosinophils % Not Reportable Basophils % Not Reportable Band Neutrophils Eosinophils 1.0 Basophils Metamyelocytes Myelocytes Promyelocytes Nucleated RBCs Differential Comment Hypersegmented Polys Blast Cells Plasma Cells Other Cell Type Hypochromia Toxic Granulation Dohle Bodies Keith Rods Platelet Estimate Normal Normal RBC Morphology Polychromasia Poikilocytosis Basophilic Stippling Anisocytosis Microcytosis Macrocytosis Spherocytes Sickle Cells Target Cells Ovalocytes Stomatocytes Helmet Cells [place] Bodies [place] Rings [place] Cells Acanthocytes (Spur) Rouleaux Schistocytes RBC Morph Comment PUBS Tear Drop Cells Sodium 132 L Potassium 4.1 Chloride 97 L Carbon Dioxide 23 Anion Gap 16.1 BUN 18 Creatinine 0.63 BUN/Creatinine Ratio 28.6 H Random Glucose 322 H Serum Osmolality 278.8 Lactic Acid 2.0 Calcium 9.7 Total Bilirubin 1.3 H AST 13 ALT 15 Alkaline Phosphatase 79 Serum Total Protein 7.6 Albumin 3.8 Globulin 3.8 H Albumin/Globulin Ratio 1.0 L Serum HCG, Qual Urine Color Urine Appearance Urine pH Ur Specific Clay Urine Protein Urine Glucose (UA) Urine Ketones Urine Blood Urine Nitrite Urine Bilirubin Urine Urobilinogen Ur Leukocyte Esterase Urine RBC Urine WBC Ur Epithelial Cells Urine Bacteria Urine Yeast 06/10/19 06/10/19 06/10/19 19:05 19:05 19:45 WBC RBC Hgb Hct MCV MCH MCHC RDW Plt Count MPV Absolute Neuts (auto) Absolute Lymphs (auto) Absolute Monos (auto) Absolute Eos (auto) Total Counted Cancelled Neutrophils % Neutrophils % (Manual) Cancelled Lymphocytes % Lymphocytes % (Manual) Cancelled Monocytes % Monocytes % (Manual) Cancelled Eosinophils % Basophils % Band Neutrophils Cancelled Eosinophils Cancelled Basophils Cancelled Metamyelocytes Cancelled Myelocytes Cancelled Promyelocytes Cancelled Nucleated RBCs Cancelled Differential Comment Cancelled Hypersegmented Polys Cancelled Blast Cells Cancelled Plasma Cells Cancelled Other Cell Type Cancelled Hypochromia Cancelled Toxic Granulation Cancelled Dohle Bodies Cancelled Keith Rods Cancelled Platelet Estimate Cancelled Normal RBC Morphology Cancelled Polychromasia Cancelled Poikilocytosis Cancelled Basophilic Stippling Cancelled Anisocytosis Cancelled Microcytosis Cancelled Macrocytosis Cancelled Spherocytes Cancelled Sickle Cells Cancelled Target Cells Cancelled Ovalocytes Cancelled Stomatocytes Cancelled Helmet Cells Cancelled [place] Bodies Cancelled [place] Rings Cancelled [place] Cells Cancelled Acanthocytes (Spur) Cancelled Rouleaux Cancelled Schistocytes Cancelled RBC Morph Comment Cancelled PUBS Tear Drop Cells Cancelled Sodium Potassium Chloride Carbon Dioxide Anion Gap BUN Creatinine BUN/Creatinine Ratio Random Glucose Serum Osmolality Lactic Acid Calcium Total Bilirubin AST ALT Alkaline Phosphatase Serum Total Protein Albumin Globulin Albumin/Globulin Ratio Serum HCG, Qual Negative Urine Color Yellow Urine Appearance Clear Urine pH 5.0 Ur Specific Clay 1.010 Urine Protein 100 H Urine Glucose (UA) 500 H Urine Ketones 15 H Urine Blood Moderate H Urine Nitrite Negative Urine Bilirubin Negative Urine Urobilinogen 0.2 Ur Leukocyte Esterase Negative Urine RBC 3-5 H Urine WBC 3-5 H Ur Epithelial Cells 5-10 Urine Bacteria Rare Urine Yeast 1+ budding H - EKG/XRAY/CT Comments: US LLE: No DVT. +LAD. See formal read. XRAY: chest - No acute findings. See formal read. CT: Abd Pelv: No acute findings. See formal read. Departure - Departure Clinical Impression: Diabetic infection of left foot, Inguinal lymphadenopathy Fever Qualifiers: Fever type: unspecified Qualified Code(s): R50.9 - Fever, unspecified Hyperglycemia due to type 2 diabetes mellitus Qualifiers: Diabetes mellitus mcc insulin use: unspecified mcc insulin use status Qualified Code(s): E11.65 - Type 2 diabetes mellitus with hyperglycemia Sepsis Qualifiers: Sepsis type: sepsis due to unspecified organism Sepsis acute organ dysfunction status: unspecified Qualified Code(s): A41.9 - Sepsis, unspecified organism Time of Disposition: 20:30 Disposition: Admit Patient Condition: Fair Home Medications: Ambulatory Orders RX: Gabapentin 600 mg PO TID 08/14/16 RX: Tramadol HCl [Ultram] 100 mg PO TID PRN 08/14/16 RX: DULoxetine HCL [Cymbalta] 30 mg PO BEDTIME 12/16/17 Insulin Aspart [Novolog Flexpen] 100 unit SC TID PRN #10 ml 06/30/18 RX: Albuterol Inhaler [Ventolin Hfa Inhaler] 1 puff INH Q4HR PRN #1 inh 06/30/18 RX: Azithromycin 500 mg PO DAILY #3 tab 06/30/18 RX: Empagliflozin [Jardiance] 10 mg PO DAILY #30 tab 06/30/18 RX: Furosemide 20 mg PO DAILY PRN #30 tab 06/30/18 RX: Hydrochlorothiazide 25 mg PO DAILY #60 tab 06/30/18 RX: Insulin Glargine [Toujeo Solostar] 25 unit SC QAM #1 inj 06/30/18 RX: Lisinopril [Prinivil] 20 mg PO DAILY #60 tab 06/30/18 RX: Metformin HCl [Metformin Hydrochloride E] 500 mg PO BIDFD #60 tab 06/30/18 Semaglutide [Ozempic] 2 mg SC DAILY #1 inj 06/30/18 Decision To Admit - Decistion To Admit Decision to Admit Reason: Admit from ER Decision to Admit Date: 06/10/19 Decision to Admit Time: 20:32
[2019-06-10] MEDS ORDERED: MEROPENEM 500 MG VIAL IVPB ONE (19:12)
[2019-06-10] MEDS ORDERED: SODIUM CHLORIDE 0.9% 100ML 0 ML IVPB ONE (19:13)
[2019-06-10] MEDS ORDERED: SODIUM CHLORIDE 0.9% 50ML 50 ML ONE (19:14)
--- NOTE | 2019-06-10 19:48 | RAD ---
EXAM DESCRIPTION: Chest,1 View CLINICAL HISTORY: 49 years Female Fever COMPARISON: 06/30/2018 FINDINGS: The cardiomediastinal silhouette appears unremarkable. No consolidating infiltrates or pleural effusions. No pneumothorax. Elevation of the right hemidiaphragm. IMPRESSION: No acute abnormality is identified. Electronically signed by: Dara Randolph MD 06/10/2019 7:46 PM CDT
--- NOTE | 2019-06-10 19:51 | CT ---
EXAM DESCRIPTION: Abdoment/Pelvis w/o Contrast CLINICAL HISTORY: 49 years Female LLQ pain COMPARISON: 08/03/2015 TECHNIQUE: Contiguous axial images obtained through the abdomen and pelvis without IV contrast. Reformatted images obtained. This exam was performed according to our department optimization program which includes automated exposure control, adjustment of the mA and/or kv according to patient size and/or use of iterative reconstruction technique. FINDINGS: The lung bases are clear. Enlarged fatty liver measuring 21.2 cm. The spleen and pancreas appear unremarkable. No adrenal masses. The kidneys appear unremarkable. No hydronephrosis or definite ureteral calculi. The gallbladder is absent. No aneurysmal dilatation of the aorta. No bowel obstruction. Unremarkable appendix. There is a 2 cm simple appearing left ovarian cyst. This is almost certainly benign and no follow-up is recommended. No inflammatory changes are present in the left lower quadrant. No free pelvic fluid. IMPRESSION: No acute intra-abdominal abnormality is identified. 2 cm simple appearing left ovarian cyst. This is almost certainly benign and a follow-up is recommended Enlarged fatty liver Electronically signed by: Dara Randolph MD 06/10/2019 7:50 PM CDT
[2019-06-10] MEDS ORDERED: ACETAMINOPHEN 500 MG TAB ONE (19:56)
[2019-06-10] MEDS ORDERED: ACETAMINOPHEN 500 MG TAB PO ONE (19:59)
[2019-06-10] MEDS ORDERED: SODIUM CHLORIDE 0.9% 1000ML 2,000 ML IVS ONE (20:24)
[2019-06-10] MEDS ORDERED: VANCOMYCIN HCL INJ 1,000 MG in SODIUM CHLORIDE 0.9% 250ML 250 ML IVPB ONE (20:24)
--- NOTE | 2019-06-10 21:00 | US ---
EXAM DESCRIPTION: Venous, lower Extremity LT CLINICAL HISTORY: 49 years Female Leg pain COMPARISON: None. TECHNIQUE: Duplex imaging performed to evaluate the left lower extremity venous structures. Compression imaging and augmentation imaging performed. The common femoral, superficial femoral, popliteal, greater saphenous and posterior tibial veins were examined. FINDINGS: No thrombus is identified in the left lower extremity venous structures. There enlarged lymph nodes in the area of the left inguinal canal in the region of the patient's pain. A node measures 3.4 x 1.3 x 2.4 cm. There is also a node measuring 5.1 x 1.6 x 1.6 cm. IMPRESSION: No DVT is identified in the left lower extremity. There are enlarged lymph nodes in the left groin which are nonspecific. Clinical correlation or follow-up recommended. Electronically signed by: Scott Randolph MD 06/10/2019 8:58 PM CDT
[2019-06-10] MEDS ORDERED: VANCOMYCIN HCL INJ 1,000 MG VIAL IVPB ONE (21:11)
[2019-06-10] MEDS ORDERED: SODIUM CHLORIDE 0.9% 250ML 250 ML ONE (21:12)
--- NOTE | 2019-06-10 21:34 | HP ---
SUPERVISING PHYSICIAN: Harris Yarbrough MD CHIEF COMPLAINT: Left lower extremity pain and left groin pain. HISTORY OF PRESENT ILLNESS: This is a 49 year-old female patient who has a long history of uncontrolled diabetes and multiple surgeries for Charcot foot. She recently returned to [place] [facility] she was in [place] and went on an extended cruise to the [facility]. She has had a diabetic ulcer on the lateral portion of her fifth toe since January and while on the cruise her left great toe, she had some pain under the toenail and actually went to the ship medical unit and it was drained with some brownish-yellow pus according to the patient and she was placed on Bactrim. She stayed in [place] and [place] for several days after she came back and has been back in [place] a little over a week. Earlier on the date of admission she had been to her primary care physician's office, Dr. Estuardo Baptiste and had complained of that left great toe hurting and he did some manipulation on the toe. It is unclear whether he drained it or not but she had had no problems with it being on the Bactrim and between her appointment at noon and the time she came into the Emergency Room, her left lower leg had become inflamed, swollen and very tender. She also had some pain in that left groin area. When she got to the Emergency Room her vital signs were temperature of 101 that eventually went up to 103. Her heart rate ran between 117 and 133 with a blood pressure of 182/102. Her respiratory rate was 20 and oxygen saturation of 98%. Laboratory was done and her WBC was at 20,600 with a hemoglobin of 15.3 and hematocrit of 44.7. Sodium 132, potassium 4.1, chloride 97, blood sugar 322 with bilirubin of 1.3. Urinalysis showed 100 of urine protein, 55 urine glucose, 15 urine ketones, moderate urine blood, 3 to 5 urine RBCs, 3 to 5 urine WBCs, 1+ budding yeast. Blood cultures were drawn. An ultrasound of her left groin and left lower extremity showed enlarged last night in the left groin that showed nonspecific. There was no deep venous thrombosis identified in the left lower extremity. CT of the abdomen and pelvis showed no acute intraabdominal abnormality identified and a 2 cm simple appearing left ovarian cyst that is almost certainly benign with followup recommended, and an enlarged fatty liver. The patient was given some fluids as well as some Merrem and vancomycin. She was also given Zofran for antiemetics and I was called for hospital admission. PAST MEDICAL HISTORY: 1. Type 2 diabetes mellitus. 2. Charcot foot with multiple surgical procedures and interventions. . 3. Hypertension. 4. Diabetic neuropathy. 5. Retinopathy. 6. Anxiety disorder. PAST SURGICAL HISTORY: 1. Multiple left foot surgeries for Charcot foot. 2. Right knee arthroscopy times 2. 3. Right shoulder rotator cuff repair. 4. Lasik surgery bilateral. 5. Bilateral cataract removal. 6. Cholecystectomy. CURRENT MEDICATIONS: Per the EMR and awaiting verification. ALLERGIES: PENICILLINS, CODEINE, IODINE, SULFA DRUGS, DALVANCE, LEVEMIR, MORPHINE AND PHENOL. FAMILY HISTORY: Positive for heart disease, diabetes and Alzheimer's. SOCIAL HISTORY: The patient lives in [place]. She has just recently been . She denies any tobacco, ETOH or illicit drug use. REVIEW OF SYSTEMS: GENERAL: Positive for fever, negative for fatigue or weight changes. HEENT: Negative for sinus symptoms, ear pain, vision changes, sore throat. RESPIRATORY: Negative for coughing, wheezing, shortness of breath CARDIAC: Negative for chest pain, palpitations, tachycardia. GI: Negative for nausea, vomiting, diarrhea or constipation. GENITOURINARY: Negative for hematuria, dysuria, polyuria. SKIN: As per history of present illness . NEUROLOGICAL: Negative for headaches, weakness or seizures. PHYSICAL EXAMINATION: VITAL SIGNS: Temperature 101.2, heart rate 117, blood pressure 141/93, respiratory rate 20, oxygen saturation 93% on room air. GENERAL: This is a 49 year-old female patient who is lying in her hospital bed. She is in no acute distress. HEENT: Normocephalic and atraumatic. Pupils are equal and reactive. Oropharynx is clear. NECK: Supple without mass. CHEST: Essentially clear to auscultation bilaterally. CARDIOVASCULAR: Regular rate and rhythm. ABDOMEN: Soft, nondistended, non-tender. Bowel sounds are positive. EXTREMITIES: She has an old foot ulcer on the lateral aspect of her fifth toe. She also has a swollen and edematous left great toe. There is no fluctuance or drainage noted but she does have a notable fungal infection to that toenail. Her left leg is dry with +2 edema that extends up to midcalf. It is also erythematous but is circumferential and extends to the distal portion of her foot. She has a callous on the ball of her left foot that is cracked, but again, there is no drainage noted. There is tenderness to palpation. Her bilateral pedal pulses are at +2 NEUROLOGIC: She is awake, alert, and oriented x3. Cranial nerves II through XII are grossly intact as tested. Labs and films are as per the history of present illness. ASSESSMENT: 1. Sepsis related to left lower extremity cellulitis and urinary tract infection an admitting temperature of 101.2, heart rate of 133 with a WBC of 20,600. 2. Left lower extremity cellulitis due to diabetic ulcers, that failed outpatient treatment. She was treated approximately 2 weeks ago on Bactrim. 3. Urinary tract infection. 4. Diabetes mellitus type 2. 5. Diabetic neuropathy. 6. Hypertension. 7. History of Charcot foot due to diabetic compensate and multiple surgical interventions. 8. Anxiety. PLAN: The patient has been admitted to the hospital. We will continue with the vancomycin per pharmacy and Merrem. Culture has been sent for the urine and we will monitor closely as it becomes available. Due to her comorbidities of diabetes as well as her recent travel and since she had an elevated we will test for the flu and most likely send off for COVID 19 testing. She will be put in isolation for now. We will restart her home medications as soon as they have been verified. She will be on Lovenox for DVT prophylaxis. I have also put her on sliding scale insulin protocol. Will need to do wound care and elevate her left foot. I will plan for an MRI on Thursday to rule out osteomyelitis. We will continue to monitor closely and follow as needed. #[id number] [facility]
[2019-06-10] MEDS ORDERED: IBUPROFEN 200 MG TAB ONE (21:36)
[2019-06-10] MEDS ORDERED: IBUPROFEN 200 MG TAB PO ONE (21:38)
[2019-06-10] MEDS ORDERED: TEMAZEPAM 15 MG CAP PO PRN (22:33)
[2019-06-10] MEDS ORDERED: ONDANSETRON INJ 4 MG/2 ML VIAL IV PRN (22:33)
[2019-06-10] MEDS ORDERED: SODIUM CHLORIDE 0.9% (FLUSH) 10 ML SYG IV PRN (22:33)
[2019-06-10] MEDS ORDERED: DEXTROSE 50% 25 GM/50 ML SYG IV PRN (22:39)
[2019-06-10] MEDS ORDERED: GLUCAGON INJ 1 MG VIAL SUBCU PRN (22:39)
[2019-06-10] MEDS ORDERED: IV SET AND CAP CHANGE INJ INJ SCH (23:00)
[2019-06-11] MEDS ORDERED: MEROPENEM 1 GM VIAL IVPB ONE ×3 (05:29→20:01)
[2019-06-11] MEDS ORDERED: SODIUM CHL 0.9% 50ML MIN-BAG+ 50 ML IVPB ONE ×3 (05:29→20:00)
[2019-06-11] MEDS: MEROPENEM 1 GM in SODIUM CHL 0.9% 50ML MIN-BAG+ 50 ML IVPB SCH ×3 (05:35→21:46)
[2019-06-11] MEDS: ACETAMINOPHEN 325 MG TAB PO PRN ×3 (05:59→21:05)
[2019-06-11] MEDS: traMADol HCL 50 MG TAB PO PRN ×2 (06:00→13:52)
[2019-06-11] MEDS ORDERED: VANCOMYCIN PER PHARMACY IVPB SCH (07:00)
[2019-06-11] MEDS: INSULIN LISPRO 100 UNITS/ML PEN SUBCU SCH ×4 (07:41→21:26)
[2019-06-11] MEDS ORDERED: VANCOMYCIN HCL INJ 1,000 MG, VANCOMYCIN HCL INJ 500 MG in SODIUM CHLORIDE 0.9% 500ML 50... IVPB SCH (09:00)
[2019-06-11] MEDS ORDERED: VANCOMYCIN HCL INJ 500 MG VIAL ONE ×2 (09:19→16:25)
[2019-06-11] MEDS ORDERED: SODIUM CHLORIDE 0.9% 500ML 500 ML ONE ×2 (09:20→16:26)
[2019-06-11] MEDS ORDERED: VANCOMYCIN HCL INJ 1,000 MG VIAL IVPB ONE ×2 (09:20→16:26)
[2019-06-11] MEDS ORDERED: INSULIN GLARGINE SC SCH (09:30)
[2019-06-11] MEDS ORDERED: NON-FORMULARY MEDICATION 1 EA MIS (Empagliflozin [Jardiance] 10 MG) PO SCH (09:30)
[2019-06-11] MEDS: metFORMIN XR 500 MG TAB.ER.24 PO SCH ×2 (09:48→16:35)
[2019-06-11] MEDS: VANCOMYCIN HCL INJ 1,000 MG, VANCOMYCIN HCL INJ 500 MG in SODIUM CHLORIDE 0.9% 500ML 50... IVPB SCH ×2 (09:48→16:36)
[2019-06-11] MEDS: SODIUM CHLORIDE 0.9% (FLUSH) 10 ML SYG IV SCH ×2 (09:50→20:56)
--- NOTE | 2019-06-11 10:21 | RAD ---
: 1970. Technique: Portable AP chest x-ray. Comparison: June 10, 2019. Clinical history: leukocytosis. Heart size: Normal. Lungs: No acute consolidation. Shallow inspiration. Pleura: No pleural effusion. No pneumothorax. Mediastinum and kirsten: Unremarkable. Skeletal: Unremarkable. Support tubings: None. Impression: 1. No active disease in the chest. Electronically signed by: Dayo Martinez MD 06/11/2019 10:20 AM CDT
[2019-06-11] MEDS: NON-FORMULARY MEDICATION 1 EA MIS (Empagliflozin [Jardiance] 25 MG) PO SCH (16:35)
[2019-06-11] MEDS: INSULIN GLARGINE SC SCH (16:35)
[2019-06-11] MEDS ORDERED: GABAPENTIN 300 MG CAP ONE (20:01)
[2019-06-11] MEDS ORDERED: LISINOPRIL 10 MG TAB PO SCH (21:00)
[2019-06-11] MEDS ORDERED: ENOXAPARIN SODIUM 40 MG/0.4 ML SYG SUBCU SCH (21:00)
[2019-06-11] MEDS ORDERED: hydroCHLOROthiazide 25 MG TAB PO SCH (21:00)
[2019-06-11] MEDS ORDERED: ATORVASTATIN 10 MG TAB PO SCH (21:00)
[2019-06-11] MEDS ORDERED: GABAPENTIN 300 MG CAP PO ONE (22:46)
[2019-06-12] MEDS ORDERED: VANCOMYCIN HCL INJ 500 MG VIAL ONE ×3 (01:41→16:53)
[2019-06-12] MEDS ORDERED: SODIUM CHLORIDE 0.9% 500ML 500 ML ONE ×3 (01:41→16:53)
[2019-06-12] MEDS ORDERED: VANCOMYCIN HCL INJ 1,000 MG VIAL IVPB ONE ×3 (01:41→16:53)
[2019-06-12] MEDS: VANCOMYCIN HCL INJ 1,000 MG, VANCOMYCIN HCL INJ 500 MG in SODIUM CHLORIDE 0.9% 500ML 50... IVPB SCH ×3 (01:42→17:00)
[2019-06-12] MEDS ORDERED: SODIUM CHL 0.9% 50ML MIN-BAG+ 50 ML IVPB ONE ×2 (05:09→13:08)
[2019-06-12] MEDS ORDERED: MEROPENEM 1 GM VIAL IVPB ONE ×2 (05:09→13:08)
[2019-06-12] MEDS ORDERED: diphenhydrAMINE HCL 50 MG/ML VIAL IV PRN (05:13)
[2019-06-12] MEDS ORDERED: CHLORHEXIDINE GLUCONATE 4 % 15 ML UD TOP ONE (05:19)
[2019-06-12] MEDS: MEROPENEM 1 GM in SODIUM CHL 0.9% 50ML MIN-BAG+ 50 ML IVPB SCH ×2 (05:29→14:00)
[2019-06-12] MEDS: TRIAMCINOLONE 0.5% CREAM 15 GM TUBE TOP SCH ×2 (05:29→07:45)
[2019-06-12] MEDS: INSULIN LISPRO 100 UNITS/ML PEN SUBCU SCH ×3 (07:36→16:40)
[2019-06-12] MEDS: INSULIN GLARGINE SC SCH (07:43)
[2019-06-12] MEDS: NON-FORMULARY MEDICATION 1 EA MIS (Empagliflozin [Jardiance] 25 MG) PO SCH (07:43)
[2019-06-12] MEDS: metFORMIN XR 500 MG TAB.ER.24 PO SCH ×2 (07:44→17:00)
[2019-06-12] MEDS: SODIUM CHLORIDE 0.9% (FLUSH) 10 ML SYG IV SCH (07:44)
[2019-06-12] MEDS: traMADol HCL 50 MG TAB PO PRN (07:53)
[2019-06-12] MEDS ORDERED: CHLORHEXIDINE GLUCONATE 4% TOP ONE (09:00)
[2019-06-12 09:20] VITALS: O2SAT 96
--- NOTE | 2019-06-12 16:03 | PN ---
DATE: 06/11/19 SUBJECTIVE: The patient is sitting up in bed, somewhat tearful. She was quite depressed over her condition as well as being in isolation. She has no complaints of coughing, shortness of breath, no nausea, vomiting, diarrhea. The pain in her left foot is improved, although it still hurts quite a bit. OBJECTIVE: VITAL SIGNS: Temperature is 100.6, heart ate 105, blood pressure 146/76, respiratory rate 18, oxygen saturation 98% on room air. RESPIRATORY: Essentially clear to auscultation bilaterally. CARDIAC: Regular rate and rhythm. ABDOMEN: Soft, nondistended, non-tender. Bowel sounds are positive. EXTREMITIES: Bilateral pedal pulses are palpable at +2. Her left foot is significantly less swollen than previously and the erythema has improved. The area of erythema and edema was marked on admission and it has significantly increased since her admission. There is no fluctuance or drainage noted in the fifth left toe nor is there any fluctuance or drainage in the left great toe. NEUROLOGICAL: She is awake, alert, and oriented x3. LABORATORY: WBCs have improved to 15,100. Electrolytes are within normal limits, her blood sugars have run mostly in the mid 200s. Total bilirubin is 1.3. Her preliminary blood cultures show no growth. Chest x-ray shows no active disease in the chest. All other labs and films have been reviewed via the EMR. ASSESSMENT: 1. Sepsis related to left lower extremity cellulitis and urinary tract infection an admitting temperature of 101.2, heart rate of 133 with a WBC of 20,600. 2. Left lower extremity cellulitis due to diabetic ulcers, that failed outpatient treatment. She was treated approximately 2 weeks ago on Bactrim. Increased risk of COVID-19. Patient is presently being tested and in isolation. She is a diabetic and has recently been on a cruise out of the country. 3. Urinary tract infection. 4. Diabetes mellitus type 2. 5. Diabetic neuropathy. 6. Hypertension. 7. History of Charcot foot due to diabetic compensate and multiple surgical interventions. 8. Anxiety. PLAN: We will continue present supportive care. She will continue in isolation until her COVID-19 results are returned. At this point, we will continue her antibiotics as they are presently ordered and she will need an ortho or surgical consultation at some point. Most likely will need to check base with Dr. Sweeney on Thursday for her recommendations as to antibiotic therapy. I will also try to get an MRI of that left foot on Thursday. We will continue to monitor closely and follow as needed. #[id number] [facility]
[2019-06-12 17:06] VITALS: BP 135/88; TEMP 98.5
--- NOTE | 2019-06-20 09:56 | DS ---
SUPERVISING PHYSICIAN: Dayanna Yarbrough MD DISCHARGE DIAGNOSIS: 1. Sepsis related to left lower extremity cellulitis and urinary tract infection an admitting temperature of 101.2, heart rate of 133 with a WBC of 20,600. 2. Left lower extremity cellulitis due to diabetic ulcers, that failed outpatient treatment. She was treated approximately 2 weeks ago on Bactrim. Increased risk of COVID-19. Patient is presently being tested and in isolation. She is a diabetic and has recently been on a cruise out of the country. 3. Urinary tract infection. 4. Diabetes mellitus type 2. 5. Diabetic neuropathy. 6. Hypertension. 7. History of Charcot foot due to diabetic compensate and multiple surgical interventions. 8. Anxiety. HISTORY OF PRESENT ILLNESS: This is a 49 year-old female patient who has a long history of uncontrolled diabetes and multiple surgeries for Charcot foot. She recently returned to [place] from her [facility] where she was in [place] and went on an extended cruise to the [facility]. She had a diabetic ulcer on the lateral portion of her fifth toe since January and while on the cruise, she had some pain in her left great toe under the toenail and actually went to the ship medical unit and it was drained with some brownish-yellow pus and she was placed on Bactrim. She stayed in [place] and [place] for several days after she came back from the cruise and has been back in [place] a little over a week. On the date of admission, she had been to her primary care physician's office, Dr. Estuardo Baptiste, and had complained of that left great toe hurting and he did some manipulation on the toe. It is unclear whether he drained it or not, but she had had no problems with it after being on the Bactrim. Sometime between her appointment at noon with Em[facility] and the time she came into the Emergency Room at approximately 5 PM, her left lower leg had become inflamed, swollen and very tender. It was erythematous up to her midcalf. She also had some pain in that left groin area. When she got to the Emergency Room, her vital signs were temperature of 101 that eventually went up to 103. Her heart rate ran between 117 and 133 with a blood pressure of 182/102. Her respiratory rate was 20 and oxygen saturation of 98%. Laboratory was done and her WBC was at 20,600 with a hemoglobin of 15.3 and hematocrit of 44.7. Sodium 132, potassium 4.1, chloride 97, blood sugar 322 with bilirubin of 1.3. Urinalysis showed 100 of urine protein, 55 urine glucose, 15 urine ketones, moderate urine blood, 3 to 5 urine RBCs, 3 to 5 urine WBCs, 1+ budding yeast. Her left lower extremity venous ultrasound showed no DVT evidence in the left lower extremity with enlarged lymph nodes in the left groin which were nonspecific. CT of the abdomen and pelvis showed no acute intraabdominal abnormality identified with a 2 cm simple appearing left ovarian cyst that is almost certainly benign with followup recommended, and an enlarged, fatty liver. Her chest x-ray showed no acute abnormality identified. The patient was given some fluids as well as some Merrem and vancomycin. She was admitted to the hospital in stable condition. HOSPITAL COURSE: Vancomycin and Merrem were continued. Culture for her urine has been sent off. Due to her comorbidities of diabetes as well as her recent travel and an elevated white count, she was tested for flu and was sent off for COVID-19 testing. She was put in isolation. Her home medications were re- started. She was on sliding insulin protocol as well as Lovenox for DVT prophylaxis. Her foot was elevated. An MRI was planned for Thursday to rule out osteomyelitis. Her leg progressively improved and the redness was almost minimal. It was felt she could be discharged from the hospital and her MRI could be done tomorrow. Outpatient IV antibiotic therapy orders were written so she could continue with that medication until her MRI was resulted. DISCHARGE PLAN: The patient will be discharged home in stable condition. She is to return to the hospital tomorrow morning for IV antibiotic therapy. After she completes her morning round of antibiotics, she is to get her MRI of that foot. She is to resume her diabetic diet and increase her activity as tolerated and to keep that foot elevated as much as possible. She is to followup with Dr. Estuardo Baptiste within one to two weeks and to make sure she gets a CD of her MRI when it is completed. She also has a history of yeast infections when she is on antibiotic therapy, so I have given her some Diflucan. Once the MRI results are completed, she will be placed on appropriate antibiotic therapy depending on if she has osteomyelitis or not. She is to return to the hospital or followup with Dr. Baptiste for any problems or complications. DISCHARGE MEDICATIONS: 1. Tramadol. 2. Jardiance. 3. Metformin. 4. Lipitor. 5. NovoLog. 6. Toujeo. 7. Prinivil. 8. Hydrochlorothiazide. 9. Meropenem. 10. Triamcinolone cream. 11. Vancomycin. 12. Fluconazole. #[id number] [facility]
== END 2019-06-12 19:10 | disposition left against medical advice (07) | DRG 872 ==
LOC: ER 17:51 → MS 21:32 → OBSVTOIN 21:32 → MS 22:36
PROVIDERS: ADMIT Nurse Practitioner Acute Care; ATTEND Nurse Practitioner Acute Care
DX: A41.9 Sepsis, unspecified organism (principal); L03.116 Cellulitis of left lower limb; N39.0 Urinary tract infection, site not specified; F41.9 Anxiety disorder, unspecified; E11.65 Type 2 diabetes mellitus with hyperglycemia; B35.1 Tinea unguium; I10 Essential (primary) hypertension; E11.610 Type 2 diabetes mellitus with diabetic neuropathic arthropathy; L97.529 Non-pressure chronic ulcer of other part of left foot with unspecified severity; E11.319 Type 2 diabetes mellitus with unspecified diabetic retinopathy without macular edema; E11.621 Type 2 diabetes mellitus with foot ulcer; Z03.818 Encounter for observation for suspected exposure to other biological agents ruled out; Z88.0 Allergy status to penicillin; Z88.5 Allergy status to narcotic agent; Z91.048 Other nonmedicinal substance allergy status; Z88.2 Allergy status to sulfonamides; Z88.8 Allergy status to other drugs, medicaments and biological substances; Z79.4 Long term (current) use of insulin; Z79.891 Long term (current) use of opiate analgesic; Z79.899 Other long term (current) drug therapy

== ENCOUNTER → 2019-06-13 | Outpatient (CLI) | payer BC ==
--- NOTE | 2019-06-13 10:24 | MRI ---
Study: MRI of the Left Foot. Indication: OSTEOMYLITIS Technique: Multiplanar, multi sequence MRI of the left foot was obtained without intravenous contrast. Comparison: September 30, 2017. Findings: No evidence of aggressive bone destruction. No drainable abscess. Mild diffuse dorsal soft tissue swelling throughout the foot with diffuse mild edema in the ankle indicating mild cellulitis. New small subcutaneous fluid collection plantar to the hallux sesamoids measuring 19 mm AP by 4 mm craniocaudal by 18 mm transverse. Given location, is likely reflects adventitial bursa formation, however sterility uncertain by this exam. Near complete resolution of the previously noted edema and mild cystic change in the fourth metatarsal head. Medial/tibial hallux sesamoid is bipartite. Again noted are postsurgical changes with arthrodesis across the TMT joints. There is osseous bridging at the first TMT compartment. Probable partial osseous bridging of the second TMT joint. ORIF changes involving the third and fourth metatarsals as well. Mild osteoarthrosis of the fourth and fifth TMT joints. There appears to be osseous bridging/healing of the third and fourth metatarsals. There is overriding malunion of the third. There is an os peroneum. There is a large plantar enthesophyte. There is also an accessory navicular ossification distal posterior tibialis. IMPRESSION: Diffuse mild cellulitis without evidence of osteomyelitis. Small subcutaneous fluid collection plantar to the hallux sesamoids likely reflecting adventitial bursa formation, however sterility uncertain by this exam. Abscess is not excluded. Previous surgical changes with arthrodesis changes in the TMT joints especially the first and second with ORIF third and fourth metatarsals with osseous bridging and malunion of the third. Near-complete resolution of the previously noted edema and mild cystic change fourth metatarsal head. No acute fracture. Electronically signed by: Sukhjinder Lafleur MD 06/13/2019 10:22 AM CDT
== END ==
LOC: MRI 08:14
PROVIDERS: ATTEND Nurse Practitioner Acute Care
DX: L03.116 Cellulitis of left lower limb (principal); E11.65 Type 2 diabetes mellitus with hyperglycemia; E11.621 Type 2 diabetes mellitus with foot ulcer; Z98.1 Arthrodesis status